=== PATIENT | male | born 1970 | race Two or more races ===

== ENCOUNTER 2019-09-04 05:06 | Observation (INO) | payer SELFPAY ==
[2019-09-04] MEDS ORDERED: Sodium Chloride 0.9% 2.5 ML Syringe FLUSH PRN (05:08)
[2019-09-04] MEDS ORDERED: Sodium Chloride 0.9% 10 ML Syringe FLUSH PRN (05:08)
--- NOTE | 2019-09-04 05:20 | EDM.PDOC ---
ED HPI GENERAL MEDICAL PROBLEM - General Stated Complaint: RIGHT SIDE IS TINGLING Time Seen by Provider: 09/04/19 05:14 - History of Present Illness INITIAL COMMENTS - FREE TEXT/NARRATIVE: HISTORY AND PHYSICAL: History of present illness: The patient is a 49-year-old male with no stated medical history who presents with complaints of tingling and numbness to his right upper and right lower extremity that started when he awoke to go to the bathroom at 3 AM. He went to bed at 9:45 PM and felt perfectly fine and had no systemic issues. He awoke to go to the bathroom and noticed the symptoms. He says it feels tingly like his arm and leg are asleep but he is able to walk and utilize them and there is no weakness. He denies any headache or neck pain and no head or neck trauma of recent note. He has no back pain no chest pain no palpitations no shortness of breath nausea vomiting abdominal pain or diarrhea. He says that his right arm and right leg are not painful and they're not burning. He does not have any numbness or tingling to his face or his trunk on the right side. He did not feel unsteady walking and he waited at home 2 hours prior to coming here and arrived through triage ambulatory. He denies any systemic issues other than the tingling and numbness to the entire right arm and right leg. Patient says that yesterday he ate and drank normally and had a completely normal day without any increased activity or anything of note. When he went to bed he also had no symptoms. The patient does admit that he does eat a lot of sodium rich foods but he has never been told that he has had hypertension. Review of systems: As per history of present illness and below otherwise all systems reviewed and negative. Past medical history: As per history of present illness and as reviewed below otherwise noncontributory. Surgical history: As per history of present illness and as reviewed below otherwise noncontributory. Social history: No reported history of drug or alcohol abuse. Family history: As per history of present illness and as reviewed below otherwise noncontributory. Physical exam: General: Well-developed well-nourished mildly overweight man who is nontoxic and speaking clearly and easily in the ED. Vital signs are noted by me HEENT: Atraumatic, normocephalic, pupils reactive, negative for conjunctival pallor or scleral icterus, mucous membranes moist, throat clear, neck supple, nontender, trachea midline. There is no evidence of any facial droop on my evaluation and there is no cervical adenopathy or nuchal rigidity Lungs: Clear to auscultation, breath sounds equal bilaterally, chest nontender. Heart: S1S2, regular, negative for clicks, rubs, or JVD. Abdomen: Soft, nondistended, nontender. Negative for masses or hepatosplenomegaly. Negative for costovertebral tenderness. Pelvis: Stable nontender. Genitourinary: Deferred. Rectal: Deferred. Extremities: Atraumatic, negative for cords or calf pain. Neurovascular unremarkable. Full range of motion without defects or deficits. There is no tenderness on palpation of the right upper and right lower extremities nor is there any swelling. Neuro: Awake, alert, oriented. Cranial nerves II through XII unremarkable. Cerebellum unremarkable. Motor is 5/5 throughout all extremities with strong grasps that are equal as well as dorsi and plantar flexion 5/5 inclusive of the great toe bilaterally, inversion and eversion of the feet is intact and sensory grossly unremarkable throughout. Exam nonfocal. The patient can feel simple touch and pressure as well as temperature Diagnostics: EKG CBC CMP INR troponin TSH UA with reflex chest x-ray CT scan of the head NIHSS Therapeutics: IV O2 monitor aspirin if CT head negative, labetalol potassium by mouth After our initial evaluation and conversation with the patient his symptoms are not severe enough to mandate TPA nor is he within the window. His last well time was 9:45 PM when he went to bed, which is 7-1/2 hours prior to presenting here, and he woke at 3 AM to go to the bathroom with these symptoms. NIHSS=0 The patient has had only mild improvement of his blood pressure with the labetalol so I will discuss this case with Dr. Alexander. He does state that the tingling is improving and he has no further symptoms of weakness headache chest pain or shortness of breath. He has a slight hypokalemia so I will give him an oral dose of potassium area he states understanding that we need to slowly lower his blood pressure as we are not sure what his normal is. He is agreeable to admission. 0614: Case was discussed with Dr. Alexander who agrees with observation admission and does not want to give anymore medications at this time. He is aware of the current blood pressure Impression: Paresthesias of right upper and right lower extremity, new hypertension/ hypertensive urgency Definitive disposition and diagnosis as appropriate pending reevaluation and review of above. - Related Data Allergies Allergy/AdvReac Type Severity Reaction Status Date / Time No Known Allergies Allergy Verified 09/04/19 05:22 Home Meds: Home Meds . [No Known Home Meds] 09/04/19 [History] ED ROS GENERAL - Review of Systems Review Of Systems: ROS reveals no pertinent complaints other than HPI. ED EXAM, GENERAL - Physical Exam Exam: See Below (see dictation) Course - Vital Signs Last Recorded V/S: Last Vital Signs Temp 36.2 C 09/04/19 05:22 Pulse 73 09/04/19 06:05 Resp 18 09/04/19 05:55 BP 180/108 H 09/04/19 06:05 Pulse Ox 94 L 09/04/19 05:55 - Orders/Labs/Meds Orders: Active Orders 24 hr Category Date Time Status Patient Status [ADT] Stat ADT 09/04/19 06:16 Active Blood Glucose Check, Bedside [RC] ONETIME Care 09/04/19 05:08 Active Cardiac Monitoring [RC] . DIRECTED Care 09/04/19 05:08 Active Communication Order [RC] STAT Care 09/04/19 05:08 Active EKG Documentation Completion [RC] STAT Care 09/04/19 05:08 Active Oxygen Therapy, ED [RC] ASDIRECTED Care 09/04/19 05:08 Active Pulse Oximetry [RC] ASDIRECTED Care 09/04/19 05:08 Active Sodium Chloride 0.9% [Saline Flush] Med 09/04/19 05:08 Active 10 ml FLUSH ASDIRECTED PRN Sodium Chloride 0.9% [Saline Flush] Med 09/04/19 05:08 Active 2.5 ml FLUSH ASDIRECTED PRN Saline Lock Insert [OM.PC] Stat Oth 09/04/19 05:08 Ordered Medication Orders Sodium Chloride (Saline Flush) 10 ml FLUSH ASDIRECTED PRN PRN Reason: Keep Vein Open Sodium Chloride (Saline Flush) 2.5 ml FLUSH ASDIRECTED PRN PRN Reason: Keep Vein Open Labs: Laboratory Tests 09/04/19 09/04/19 09/04/19 Range/Units 05:16 05:16 05:16 WBC 9.42 (4.0-11.0) K/uL RBC 5.08 (4.50-5.90) M/uL Hgb 16.1 (13.0-17.0) g/dL Hct 44.7 (38.0-50.0) % MCV 88.0 (80.0-98.0) fL MCH 31.7 (27.0-32.0) pg MCHC 36.0 (31.0-37.0) g/dL RDW Std Deviation 39.3 (28.0-62.0) fl RDW Coeff of Lala 12 (11.0-15.0) % Plt Count 226 (150-400) K/uL MPV 12.10 H (7.40-12.00) fL Neut % (Auto) 55.1 (48.0-80.0) % Lymph % (Auto) 32.9 (16.0-40.0) % Martin % (Auto) 8.5 (0.0-15.0) % Eos % (Auto) 2.9 (0.0-7.0) % Baso % (Auto) 0.6 (0.0-1.5) % Neut # (Auto) 5.2 (1.4-5.7) K/uL Lymph # (Auto) 3.1 H (0.6-2.4) K/uL Martin # (Auto) 0.8 (0.0-0.8) K/uL Eos # (Auto) 0.3 (0.0-0.7) K/uL Baso # (Auto) 0.1 (0.0-0.1) K/uL Nucleated RBC % 0.0 /100WBC Nucleated RBCs # 0 K/uL INR 1.04 Sodium 137 (136-148) mmol/L Potassium 3.1 L (3.5-5.1) mmol/L Chloride 100 (98-107) mmol/L Carbon Dioxide 26.8 (21.0-32.0) mmol/L BUN 8 (7.0-18.0) mg/dL Creatinine 0.9 (0.8-1.3) mg/dL Est Cr Clr Drug Dosing 94.87 mL/min Estimated GFR (MDRD) > 60.0 ml/min Glucose 260 H (74-106) mg/dL Calcium 8.4 L (8.5-10.1) mg/dL Total Bilirubin 1.0 (0.2-1.0) mg/dL AST 91 H (15-37) IU/L ALT 161 H (14-63) IU/L Alkaline Phosphatase 118 H (46-116) U/L Troponin I < 0.050 (0.000-0.056) ng/mL Total Protein 8.3 H (6.4-8.2) g/dL Albumin 3.9 (3.4-5.0) g/dL Globulin 4.4 H (2.6-4.0) g/dL Albumin/Globulin Ratio 0.9 (0.9-1.6) TSH 3rd Generation 2.33 (0.36-3.74) uIU/mL Urine Color Urine Appearance Urine pH (5.0-8.0) Ur Specific [place] (1.001-1.035) Urine Protein (NEGATIVE) mg/dL Urine Glucose (UA) (NEGATIVE) mg/dL Urine Ketones (NEGATIVE) mg/dL Urine Occult Blood (NEGATIVE) Urine Nitrite (NEGATIVE) Urine Bilirubin (NEGATIVE) Urine Urobilinogen (<2.0) EU/dL Ur Leukocyte Esterase (NEGATIVE) 09/04/19 Range/Units 06:00 WBC (4.0-11.0) K/uL RBC (4.50-5.90) M/uL Hgb (13.0-17.0) g/dL Hct (38.0-50.0) % MCV (80.0-98.0) fL MCH (27.0-32.0) pg MCHC (31.0-37.0) g/dL RDW Std Deviation (28.0-62.0) fl RDW Coeff of Lala (11.0-15.0) % Plt Count (150-400) K/uL MPV (7.40-12.00) fL Neut % (Auto) (48.0-80.0) % Lymph % (Auto) (16.0-40.0) % Martin % (Auto) (0.0-15.0) % Eos % (Auto) (0.0-7.0) % Baso % (Auto) (0.0-1.5) % Neut # (Auto) (1.4-5.7) K/uL Lymph # (Auto) (0.6-2.4) K/uL Martin # (Auto) (0.0-0.8) K/uL Eos # (Auto) (0.0-0.7) K/uL Baso # (Auto) (0.0-0.1) K/uL Nucleated RBC % /100WBC Nucleated RBCs # K/uL INR Sodium (136-148) mmol/L Potassium (3.5-5.1) mmol/L Chloride (98-107) mmol/L Carbon Dioxide (21.0-32.0) mmol/L BUN (7.0-18.0) mg/dL Creatinine (0.8-1.3) mg/dL Est Cr Clr Drug Dosing mL/min Estimated GFR (MDRD) ml/min Glucose (74-106) mg/dL Calcium (8.5-10.1) mg/dL Total Bilirubin (0.2-1.0) mg/dL AST (15-37) IU/L ALT (14-63) IU/L Alkaline Phosphatase (46-116) U/L Troponin I (0.000-0.056) ng/mL Total Protein (6.4-8.2) g/dL Albumin (3.4-5.0) g/dL Globulin (2.6-4.0) g/dL Albumin/Globulin Ratio (0.9-1.6) TSH 3rd Generation (0.36-3.74) uIU/mL Urine Color YELLOW Urine Appearance CLEAR Urine pH 6.5 (5.0-8.0) Ur Specific [place] <= 1.005 (1.001-1.035) Urine Protein NEGATIVE (NEGATIVE) mg/dL Urine Glucose (UA) 250 H (NEGATIVE) mg/dL Urine Ketones NEGATIVE (NEGATIVE) mg/dL Urine Occult Blood NEGATIVE (NEGATIVE) Urine Nitrite NEGATIVE (NEGATIVE) Urine Bilirubin NEGATIVE (NEGATIVE) Urine Urobilinogen 0.2 (<2.0) EU/dL Ur Leukocyte Esterase NEGATIVE (NEGATIVE) Meds: Medications Generic Name Dose Route Start Last Admin Trade Name Freq PRN Reason Stop Dose Admin Sodium Chloride 10 ml 09/04/19 05:08 Saline Flush FLUSH ASDIRECTED PRN Keep Vein Open Sodium Chloride 2.5 ml 09/04/19 05:08 Saline Flush FLUSH ASDIRECTED PRN Keep Vein Open Discontinued Medications Generic Name Dose Route Start Last Admin Trade Name Juliet PRN Reason Stop Dose Admin Aspirin 325 mg 09/04/19 06:06 09/04/19 06:15 Aspirin PO 09/04/19 06:07 325 mg ONETIME ONE Administration Labetalol HCl 10 mg 09/04/19 05:23 09/04/19 05:35 Normodyne IVPUSH 09/04/19 05:24 10 mg ONETIME ONE Administration Protocol Labetalol HCl 10 mg 09/04/19 05:46 09/04/19 05:49 Normodyne IVPUSH 09/04/19 05:47 10 mg ONETIME ONE Administration Protocol Potassium Chloride 40 meq 09/04/19 06:08 09/04/19 06:15 Klor-Con M20 PO 09/04/19 06:09 40 meq ONETIME ONE Administration Departure - Departure Time of Disposition: 06:19 Disposition: Refer to Observation Condition: Good Clinical Impression: Hypertensive urgency, Paresthesia - Discharge Information - My Orders Last 24 Hours: My Active Orders 09/04/19 05:08 Blood Glucose Check, Bedside [RC] ONETIME Cardiac Monitoring [RC] . DIRECTED Communication Order [RC] STAT EKG Documentation Completion [RC] STAT Oxygen Therapy, ED [RC] ASDIRECTED Pulse Oximetry [RC] ASDIRECTED Sodium Chloride 0.9% [Saline Flush] 10 ml FLUSH ASDIRECTED PRN Sodium Chloride 0.9% [Saline Flush] 2.5 ml FLUSH ASDIRECTED PRN Saline Lock Insert [OM.PC] Stat 09/04/19 06:16 Patient Status [ADT] Stat - Assessment/Plan Last 24 Hours: My Active Orders 09/04/19 05:08 Blood Glucose Check, Bedside [RC] ONETIME Cardiac Monitoring [RC] . DIRECTED Communication Order [RC] STAT EKG Documentation Completion [RC] STAT Oxygen Therapy, ED [RC] ASDIRECTED Pulse Oximetry [RC] ASDIRECTED Sodium Chloride 0.9% [Saline Flush] 10 ml FLUSH ASDIRECTED PRN Sodium Chloride 0.9% [Saline Flush] 2.5 ml FLUSH ASDIRECTED PRN Saline Lock Insert [OM.PC] Stat 09/04/19 06:16 Patient Status [ADT] Stat
[2019-09-04] MEDS ORDERED: Labetalol 100 MG/20 ML MDV IVPUSH ONE ×2 (05:23→05:46)
[2019-09-04 05:51] LABS: BLOOD UREA NITROGEN,BUN 8 mg/dL (7.0-18.0); CARBON DIOXIDE,CO2 26.8 mmol/L (21.0-32.0); CHLORIDE,CL 100 mmol/L (98-107); GLUCOSE RANDOM 260 mg/dL (74-106); POTASSIUM,K 3.1 mmol/L (3.5-5.1); SODIUM,NA 137 mmol/L (136-148)
--- NOTE | 2019-09-04 05:57 | CR ---
Indication: Acute onset right-sided numbness Technique: Chest 1 view Comparison: None Findings/Impression: Cardiovascular and mediastinum: Heart size and vasculature are normal in caliber and appearance. Mediastinum is within normal limits. Lungs and pleural space: Lungs are clear. No sign of infiltrate or mass. No sign of pleural effusion. No pneumothorax. Bones and soft tissues: No significant findings. Dictated by Maite Crowley MD @ Sep 04 2019 5:54AM Signed by Dr. Maite Crowley @ Sep 04 2019 5:54AM
--- NOTE | 2019-09-04 05:57 | CT ---
INDICATION: Right-sided numbness TECHNIQUE: CT head without contrast. COMPARISON: None FINDINGS: CSF spaces: Within normal limits for age. Brain parenchyma: The zamora-white differentiation is normal. No sign of mass, hemorrhage, or midline shift. Skull base and calvarium: The visualized paranasal sinuses and mastoid air cells demonstrate no acute or significant findings. The visualized orbits are grossly unremarkable. No skull fractures. IMPRESSION: Unremarkable noncontrast head CT. Please note that all CT scans at this facility use dose modulation, iterative reconstruction, and/or weight-based dosing when appropriate to reduce radiation dose to as low as reasonably achievable. Dictated by Maite Crowley MD @ Sep 04 2019 5:54AM Signed by Dr. Maiet Crowley @ Sep 04 2019 5:56AM
[2019-09-04] MEDS ORDERED: Aspirin 325 MG Tab PO ONE (06:06)
[2019-09-04] MEDS ORDERED: Potassium Chloride 20 MEQ Tab.ER PO ONE (06:08)
[2019-09-04] MEDS: cloNIDine 0.1 MG Tab PO ONE ×2 (06:55→06:59)
[2019-09-04] MEDS ORDERED: FLU Vacc QS2019-20(6MOS+)/PF 60 MCG/0.5 ML SYRINGE IM ONE (07:15)
--- NOTE | 2019-09-04 08:34 | PCM.HP.2 ---
H&P History of Present Illness - General Date of Service: 09/04/19 Admit Problem/Dx: Admission Diagnosis/Problem Admission Diagnosis/Problem Hypertensive urgency Source of Information: Patient History Limitations: Reports: No Limitations - History of Present Illness Initial Comments - Free Text/Narative: Patient is a 49 y/o male with no reported PMH who came to the ER with c/o right UE and LE tingling and numbness. Patient states that he got up to use bathroom at 3am this morning and "felt off", states he felt numbness and tingling in right arm and right leg. He went to bed around 10 pm last night and was in his usual state of health at that time. Patient waited almost 2 hours prior to coming to ER. Patient denied any weakness, nausea, vomiting, fever, chills, chest pain, SOB, palpitations, abdominal pain, cough, sore throat, focal neurological deficits, h/o trauma. Patient was found to be in hypertensive in ER with SBP >200. CT scan head was negative. Patient received labetalol*2 in the ED with minimal improvement in BP. Patient was admitted to hospital for further management. Patient has no PCP and has no insurance. Meds in ER: Generic Name Dose Route Start Last Admin Trade Name Freq PRN Reason Stop Dose Admin Sodium Chloride 10 ml 09/04/19 05:08 Saline Flush FLUSH ASDIRECTED PRN Keep Vein Open Sodium Chloride 2.5 ml 09/04/19 05:08 Saline Flush FLUSH ASDIRECTED PRN Keep Vein Open Discontinued Medications Generic Name Dose Route Start Last Admin Trade Name Freq PRN Reason Stop Dose Admin Aspirin 325 mg 09/04/19 06:06 09/04/19 06:15 Aspirin PO 09/04/19 06:07 325 mg ONETIME ONE Administration Labetalol HCl 10 mg 09/04/19 05:23 09/04/19 05:35 Normodyne IVPUSH 09/04/19 05:24 10 mg ONETIME ONE Administration Protocol Labetalol HCl 10 mg 09/04/19 05:46 09/04/19 05:49 Normodyne IVPUSH 09/04/19 05:47 10 mg ONETIME ONE Administration Protocol Potassium Chloride 40 meq 09/04/19 06:08 09/04/19 06:15 Klor-Con M20 PO 09/04/19 06:09 40 meq ONETIME ONE Administration Onset of Symptoms: Reports: Today Symptom Onset Date: 09/04/19 Symptom Onset Time: 03:00 Duration of Symptoms: Reports: Hour(s): Location: Reports: Upper Extremity, Right, Lower Extremity, Right Quality: Reports: Burning Severity: Moderate Improves with: Reports: None Worsens with: Reports: None Associated Symptoms: Reports: No Other Symptoms - Related Data Allergies/Adverse Reactions: Allergies Allergy/AdvReac Type Severity Reaction Status Date / Time No Known Allergies Allergy Verified 09/04/19 05:22 Home Medications: Home Meds . [No Known Home Meds] 09/04/19 [History] Past Medical History Endocrine/Metabolic History: Reports: Obesity/BMI 30+ - Past Surgical History Musculoskeletal Surgical History: Reports: Other (See Below) Other Musculoskeletal Surgeries/Procedures:: knee and finger surgery Social & Family History - Family History Cardiac: Reports: Hypertension - Tobacco Use Smoking Status *Q: Former Smoker Used Tobacco, but Quit: Yes Month/Year Tobacco Last Used: 2003 Second Hand Smoke Exposure: No - Caffeine Use Caffeine Use: Reports: Coffee, Soda, Tea - Recreational Drug Use Recreational Drug Use: No H&P Review of Systems - Review of Systems: Review Of Systems: See Below General: Reports: No Symptoms HEENT: Reports: No Symptoms Pulmonary: Reports: No Symptoms Cardiovascular: Reports: No Symptoms Gastrointestinal: Reports: No Symptoms Genitourinary: Reports: No Symptoms Musculoskeletal: Reports: No Symptoms Skin: Reports: No Symptoms Psychiatric: Reports: No Symptoms Neurological: Reports: Tingling (in right UE, resolved in right LE) Hematologic/Lymphatic: Reports: No Symptoms Exam - Exam Exam: See Below - Vital Signs Vital Signs: Last Vital Signs Temp 36.9 C 09/04/19 08:00 Pulse 67 09/04/19 08:00 Resp 17 09/04/19 08:00 BP 159/90 H 09/04/19 08:00 Pulse Ox 95 09/04/19 08:00 Weight: 239 lb 4.8 oz - Exam General: Alert, Oriented HEENT: Conjunctiva Clear Neck: Supple, Trachea Midline Lungs: Clear to Auscultation, Normal Respiratory Effort Cardiovascular: Regular Rate, Regular Rhythm GI/Abdominal Exam: Normal Bowel Sounds, Soft, Non-Tender Rectal (Males) Exam: Normal Exam, Normal Rectal Tone - Patient Data Lab Results Last 24 hrs: Laboratory Results - last 24 hr 09/04/19 09/04/19 09/04/19 Range/Units 05:16 05:16 05:16 WBC 9.42 (4.0-11.0) K/uL RBC 5.08 (4.50-5.90) M/uL Hgb 16.1 (13.0-17.0) g/dL Hct 44.7 (38.0-50.0) % MCV 88.0 (80.0-98.0) fL MCH 31.7 (27.0-32.0) pg MCHC 36.0 (31.0-37.0) g/dL RDW Std Deviation 39.3 (28.0-62.0) fl RDW Coeff of Lala 12 (11.0-15.0) % Plt Count 226 (150-400) K/uL MPV 12.10 H (7.40-12.00) fL Neut % (Auto) 55.1 (48.0-80.0) % Lymph % (Auto) 32.9 (16.0-40.0) % [place] % (Auto) 8.5 (0.0-15.0) % Eos % (Auto) 2.9 (0.0-7.0) % Baso % (Auto) 0.6 (0.0-1.5) % Neut # (Auto) 5.2 (1.4-5.7) K/uL Lymph # (Auto) 3.1 H (0.6-2.4) K/uL [place] # (Auto) 0.8 (0.0-0.8) K/uL Eos # (Auto) 0.3 (0.0-0.7) K/uL Baso # (Auto) 0.1 (0.0-0.1) K/uL Nucleated RBC % 0.0 /100WBC Nucleated RBCs # 0 K/uL INR 1.04 Sodium 137 (136-148) mmol/L Potassium 3.1 L (3.5-5.1) mmol/L Chloride 100 (98-107) mmol/L Carbon Dioxide 26.8 (21.0-32.0) mmol/L BUN 8 (7.0-18.0) mg/dL Creatinine 0.9 (0.8-1.3) mg/dL Est Cr Clr Drug Dosing 94.87 mL/min Estimated GFR (MDRD) > 60.0 ml/min Glucose 260 H (74-106) mg/dL Calcium 8.4 L (8.5-10.1) mg/dL Total Bilirubin 1.0 (0.2-1.0) mg/dL AST 91 H (15-37) IU/L ALT 161 H (14-63) IU/L Alkaline Phosphatase 118 H (46-116) U/L Troponin I < 0.050 (0.000-0.056) ng/mL Total Protein 8.3 H (6.4-8.2) g/dL Albumin 3.9 (3.4-5.0) g/dL Globulin 4.4 H (2.6-4.0) g/dL Albumin/Globulin Ratio 0.9 (0.9-1.6) TSH 3rd Generation 2.33 (0.36-3.74) uIU/mL Urine Color Urine Appearance Urine pH (5.0-8.0) Ur Specific Angie (1.001-1.035) Urine Protein (NEGATIVE) mg/dL Urine Glucose (UA) (NEGATIVE) mg/dL Urine Ketones (NEGATIVE) mg/dL Urine Occult Blood (NEGATIVE) Urine Nitrite (NEGATIVE) Urine Bilirubin (NEGATIVE) Urine Urobilinogen (<2.0) EU/dL Ur Leukocyte Esterase (NEGATIVE) 09/04/19 Range/Units 06:00 WBC (4.0-11.0) K/uL RBC (4.50-5.90) M/uL Hgb (13.0-17.0) g/dL Hct (38.0-50.0) % MCV (80.0-98.0) fL MCH (27.0-32.0) pg MCHC (31.0-37.0) g/dL RDW Std Deviation (28.0-62.0) fl RDW Coeff of Lala (11.0-15.0) % Plt Count (150-400) K/uL MPV (7.40-12.00) fL Neut % (Auto) (48.0-80.0) % Lymph % (Auto) (16.0-40.0) % [place] % (Auto) (0.0-15.0) % Eos % (Auto) (0.0-7.0) % Baso % (Auto) (0.0-1.5) % Neut # (Auto) (1.4-5.7) K/uL Lymph # (Auto) (0.6-2.4) K/uL [place] # (Auto) (0.0-0.8) K/uL Eos # (Auto) (0.0-0.7) K/uL Baso # (Auto) (0.0-0.1) K/uL Nucleated RBC % /100WBC Nucleated RBCs # K/uL INR Sodium (136-148) mmol/L Potassium (3.5-5.1) mmol/L Chloride (98-107) mmol/L Carbon Dioxide (21.0-32.0) mmol/L BUN (7.0-18.0) mg/dL Creatinine (0.8-1.3) mg/dL Est Cr Clr Drug Dosing mL/min Estimated GFR (MDRD) ml/min Glucose (74-106) mg/dL Calcium (8.5-10.1) mg/dL Total Bilirubin (0.2-1.0) mg/dL AST (15-37) IU/L ALT (14-63) IU/L Alkaline Phosphatase (46-116) U/L Troponin I (0.000-0.056) ng/mL Total Protein (6.4-8.2) g/dL Albumin (3.4-5.0) g/dL Globulin (2.6-4.0) g/dL Albumin/Globulin Ratio (0.9-1.6) TSH 3rd Generation (0.36-3.74) uIU/mL Urine Color YELLOW Urine Appearance CLEAR Urine pH 6.5 (5.0-8.0) Ur Specific Angie <= 1.005 (1.001-1.035) Urine Protein NEGATIVE (NEGATIVE) mg/dL Urine Glucose (UA) 250 H (NEGATIVE) mg/dL Urine Ketones NEGATIVE (NEGATIVE) mg/dL Urine Occult Blood NEGATIVE (NEGATIVE) Urine Nitrite NEGATIVE (NEGATIVE) Urine Bilirubin NEGATIVE (NEGATIVE) Urine Urobilinogen 0.2 (<2.0) EU/dL Ur Leukocyte Esterase NEGATIVE (NEGATIVE) Result Diagrams: 09/04/19 05:16 09/04/19 05:16 *Q Meaningful Use (ADM) - VTE Risk Assess *Q Each Risk Factor Represents 1 Point: Age 41 - 59 years, Obesity ( BMI > 25 kg/m2 ) Total Score 1 Point Risk Factors: 2 - Problem List (1) Hypertensive urgency SNOMED Code(s): 544427623 ICD Code: I16.0 - HYPERTENSIVE URGENCY Status: Acute Current Visit: No (2) Paresthesia SNOMED Code(s): 95084847 ICD Code: R20.2 - PARESTHESIA OF SKIN Status: Acute Current Visit: No (3) Hyperglycemia, unspecified SNOMED Code(s): 24537457 ICD Code: R73.9 - HYPERGLYCEMIA, UNSPECIFIED Status: Acute Current Visit : Yes (4) LFTs abnormal SNOMED Code(s): 681780382 ICD Code: R94.5 - ABNORMAL RESULTS OF LIVER FUNCTION STUDIES Status: Acute Current Visit: Yes (5) Hypokalemia SNOMED Code(s): 05002859 ICD Code: E87.6 - HYPOKALEMIA Status: Acute Current Visit: Yes Problem List Initiated/Reviewed/Updated: Yes Orders Last 24hrs: Active Orders 24 hr Category Date Time Status Patient Status [ADT] Stat ADT 09/04/19 06:16 Active Cardiac Monitoring [RC] . DIRECTED Care 09/04/19 05:08 Active Influenza Vaccine Charge [RC] .DISCHARGE Care 09/04/19 06:51 Active Telemetry Monitoring [Cardiac Monitoring] [RC] . Care 09/04/19 06:43 Active DIRECTED Regular Diet [DIET] Diet 09/04/19 Breakfast Active Sodium Chloride 0.9% [Saline Flush] Med 09/04/19 05:08 Active 10 ml FLUSH ASDIRECTED PRN Sodium Chloride 0.9% [Saline Flush] Med 09/04/19 05:08 Active 2.5 ml FLUSH ASDIRECTED PRN Saline Lock Insert [OM.PC] Stat Oth 09/04/19 05:08 Ordered Medication Orders Sodium Chloride (Saline Flush) 10 ml FLUSH ASDIRECTED PRN PRN Reason: Keep Vein Open Sodium Chloride (Saline Flush) 2.5 ml FLUSH ASDIRECTED PRN PRN Reason: Keep Vein Open Assessment/Plan Comment:: 1) Hypertensive urgency: Patient was found to have SBP>200, required multiple IV labetalol CT scan of the head was negative for acute stroke Numbness and tinging improved likely due to uncontrolled HTN. no focal deficits cont current antihypertensive regimen New dx of HTN so patient was counselled about HTN and what it entails in detail for approx 10 min Will check TSH, lipid profile, HbA1c Creatinine is normal Likely undiagnosed essential HTN cont to monitor vitals closely 2) Hyperglycemia: BS elevated, likely Type 2 DM Will check HbA1c SSI 3) Hypokalemia: repleted in ER, f/u on AM labs 4) Abnormal LFTs: could be sec to uncontrolled HTN vs Viral hepatitis vs ALVAREZ Will check Hepatitis panel US liver No GI symptoms cont to trend Avoid Hepatotoxic meds
[2019-09-04] MEDS ORDERED: Albuterol/Ipratropium 3.0-0.5 MG/3 ML Neb Soln NEB PRN (10:20)
[2019-09-04 10:54] LABS: HEMOGLOBIN A1C 8.9 % (4.5-6.2)
[2019-09-04] MEDS: Insulin Aspart 100 Units/ML 3 ML Pen SUBCUT SCH ×2 (11:54→18:28)
[2019-09-04] MEDS: Labetalol 100 MG/20 ML MDV IVPUSH PRN ×2 (11:58→18:23)
[2019-09-04] MEDS: Lisinopril 10 MG Tab PO SCH (13:45)
--- NOTE | 2019-09-04 13:48 | US ---
Limited abdominal ultrasound: Multiple real-time images of the upper right abdomen were obtained. Comparison: No previous abdominal imaging. Findings: Liver shows no focal abnormality. Right kidney shows no hydronephrosis or mass and has a length of 11.2 cm. Gallbladder contains no shadowing gallstones. No gallbladder wall thickening or biliary duct dilatation is seen. Visualized pancreas appears within normal limits. Impression: No abnormality is appreciated on right upper quadrant abdominal ultrasound. Diagnostic code #1 MTDD
[2019-09-04] MEDS ORDERED: amLODIPine 5 MG Tab PO ONE (18:04)
[2019-09-04] MEDS: Chlorthalidone 25 MG Tab PO SCH (19:38)
[2019-09-04] MEDS ORDERED: atorvaSTATin 20 MG Tab PO SCH (21:00)
[2019-09-04] MEDS ORDERED: Aspirin 81 MG Tab.Chew PO SCH (21:00)
[2019-09-04] MEDS ORDERED: Labetalol 100 MG/20 ML MDV IVPUSH SCH (22:00)
[2019-09-04] MEDS ORDERED: hydrALAZINE 20 MG/ML SDV IVPUSH PRN (22:31)
[2019-09-05] MEDS ORDERED: Labetalol 100 MG/20 ML MDV IVPUSH SCH
[2019-09-05 05:55] LABS: BLOOD UREA NITROGEN,BUN 8 mg/dL (7.0-18.0); CARBON DIOXIDE,CO2 29.4 mmol/L (21.0-32.0); CHLORIDE,CL 100 mmol/L (98-107); GLUCOSE RANDOM 243 mg/dL (74-106); POTASSIUM,K 3.6 mmol/L (3.5-5.1); SODIUM,NA 137 mmol/L (136-148)
[2019-09-05] MEDS: Insulin Aspart 100 Units/ML 3 ML Pen SUBCUT SCH ×2 (06:36→14:39)
[2019-09-05] MEDS: Lisinopril 10 MG Tab PO SCH (08:45)
[2019-09-05] MEDS: Chlorthalidone 25 MG Tab PO SCH (08:47)
[2019-09-05] MEDS ORDERED: amLODIPine 5 MG Tab PO SCH (09:00)
[2019-09-05] MEDS ORDERED: Metoprolol Succinate 25 MG Tab.ER PO SCH (09:00)
--- NOTE | 2019-09-05 09:45 | PCM.PN ---
- General Info Date of Service: 09/05/19 Admission Dx/Problem (Free Text): Admission Diagnosis/Problem Admission Diagnosis/Problem Hypertensive urgency Subjective Update: Patient seen and examined at bedside. No acute complaints. BP was high again last evening, so changes in the antihypertensive meds were made. BP acceptable rest of the night. Functional Status: Reports: Tolerating Diet, Ambulating, Urinating Pain Score: 0 - Review of Systems General: Reports: No Symptoms HEENT: Reports: No Symptoms Pulmonary: Reports: No Symptoms Cardiovascular: Reports: No Symptoms Gastrointestinal: Reports: No Symptoms Genitourinary: Reports: No Symptoms Musculoskeletal: Reports: No Symptoms Neurological: Reports: No Symptoms Psychiatric: Reports: No Symptoms - Patient Data Vitals - Most Recent: Last Vital Signs Temp 36.7 C 09/05/19 08:00 Pulse 72 09/05/19 08:46 Resp 18 09/05/19 08:00 BP 145/94 H 09/05/19 08:47 Pulse Ox 95 09/05/19 08:00 Weight - Most Recent: 239 lb 4.8 oz I&O - Last 24 Hours: Intake & Output 09/04/19 09/05/19 09/05/19 22:59 06:59 14:59 Intake Total 1380 600 Output Total 1650 1300 Balance -270 -700 Lab Results Last 24 Hours: Laboratory Results - last 24 hr 09/04/19 09/04/19 09/04/19 Range/Units 05:16 05:16 11:36 WBC (4.0-11.0) K/uL RBC (4.50-5.90) M/uL Hgb (13.0-17.0) g/dL Hct (38.0-50.0) % MCV (80.0-98.0) fL MCH (27.0-32.0) pg MCHC (31.0-37.0) g/dL RDW Std Deviation (28.0-62.0) fl RDW Coeff of Lala (11.0-15.0) % Plt Count (150-400) K/uL MPV (7.40-12.00) fL Neut % (Auto) (48.0-80.0) % Lymph % (Auto) (16.0-40.0) % [place] % (Auto) (0.0-15.0) % Eos % (Auto) (0.0-7.0) % Baso % (Auto) (0.0-1.5) % Neut # (Auto) (1.4-5.7) K/uL Lymph # (Auto) (0.6-2.4) K/uL [place] # (Auto) (0.0-0.8) K/uL Eos # (Auto) (0.0-0.7) K/uL Baso # (Auto) (0.0-0.1) K/uL Nucleated RBC % /100WBC Nucleated RBCs # K/uL Sodium (136-148) mmol/L Potassium (3.5-5.1) mmol/L Chloride (98-107) mmol/L Carbon Dioxide (21.0-32.0) mmol/L BUN (7.0-18.0) mg/dL Creatinine (0.8-1.3) mg/dL Est Cr Clr Drug Dosing mL/min Estimated GFR (MDRD) ml/min Glucose (74-106) mg/dL POC Glucose 179 H (60-110) mg/dL Hemoglobin A1c 8.9 H (4.5-6.2) % Calcium (8.5-10.1) mg/dL Phosphorus (2.6-4.7) mg/dL Magnesium (1.8-2.4) mg/dL Total Bilirubin (0.2-1.0) mg/dL AST (15-37) IU/L ALT (14-63) IU/L Alkaline Phosphatase (46-116) U/L Total Protein (6.4-8.2) g/dL Albumin (3.4-5.0) g/dL Globulin (2.6-4.0) g/dL Albumin/Globulin Ratio (0.9-1.6) Triglycerides 103 (0-200) mg/dL Cholesterol 195 (50-200) mg/dL LDL Cholesterol, Calc 134 (60-180) mg/dL VLDL Cholesterol 20 (5-55) mg/dL HDL Cholesterol 40 (40-60) mg/dL Cholesterol/HDL Ratio 4.9 (3.3-6.0) 09/04/19 09/05/19 09/05/19 Range/Units 17:11 05:23 05:23 WBC 8.21 (4.0-11.0) K/uL RBC 5.17 (4.50-5.90) M/uL Hgb 16.3 (13.0-17.0) g/dL Hct 46.5 (38.0-50.0) % MCV 89.9 (80.0-98.0) fL MCH 31.5 (27.0-32.0) pg MCHC 35.1 (31.0-37.0) g/dL RDW Std Deviation 41.0 (28.0-62.0) fl RDW Coeff of Lala 13 (11.0-15.0) % Plt Count 234 (150-400) K/uL MPV 12.20 H (7.40-12.00) fL Neut % (Auto) 55.6 (48.0-80.0) % Lymph % (Auto) 34.8 (16.0-40.0) % [place] % (Auto) 6.1 (0.0-15.0) % Eos % (Auto) 3.0 (0.0-7.0) % Baso % (Auto) 0.5 (0.0-1.5) % Neut # (Auto) 4.6 (1.4-5.7) K/uL Lymph # (Auto) 2.9 H (0.6-2.4) K/uL [place] # (Auto) 0.5 (0.0-0.8) K/uL Eos # (Auto) 0.3 (0.0-0.7) K/uL Baso # (Auto) 0.0 (0.0-0.1) K/uL Nucleated RBC % 0.0 /100WBC Nucleated RBCs # 0 K/uL Sodium 137 (136-148) mmol/L Potassium 3.6 (3.5-5.1) mmol/L Chloride 100 (98-107) mmol/L Carbon Dioxide 29.4 (21.0-32.0) mmol/L BUN 8 (7.0-18.0) mg/dL Creatinine 1.0 (0.8-1.3) mg/dL Est Cr Clr Drug Dosing 85.38 mL/min Estimated GFR (MDRD) > 60.0 ml/min Glucose 243 H (74-106) mg/dL POC Glucose 188 H (60-110) mg/dL Hemoglobin A1c (4.5-6.2) % Calcium 8.9 (8.5-10.1) mg/dL Phosphorus 3.5 (2.6-4.7) mg/dL Magnesium 2.0 (1.8-2.4) mg/dL Total Bilirubin 1.1 H (0.2-1.0) mg/dL AST 127 H (15-37) IU/L ALT 171 H (14-63) IU/L Alkaline Phosphatase 111 (46-116) U/L Total Protein 7.9 (6.4-8.2) g/dL Albumin 3.5 (3.4-5.0) g/dL Globulin 4.4 H (2.6-4.0) g/dL Albumin/Globulin Ratio 0.8 L (0.9-1.6) Triglycerides (0-200) mg/dL Cholesterol (50-200) mg/dL LDL Cholesterol, Calc (60-180) mg/dL VLDL Cholesterol (5-55) mg/dL HDL Cholesterol (40-60) mg/dL Cholesterol/HDL Ratio (3.3-6.0) 09/05/19 Range/Units 06:32 WBC (4.0-11.0) K/uL RBC (4.50-5.90) M/uL Hgb (13.0-17.0) g/dL Hct (38.0-50.0) % MCV (80.0-98.0) fL MCH (27.0-32.0) pg MCHC (31.0-37.0) g/dL RDW Std Deviation (28.0-62.0) fl RDW Coeff of Lala (11.0-15.0) % Plt Count (150-400) K/uL MPV (7.40-12.00) fL Neut % (Auto) (48.0-80.0) % Lymph % (Auto) (16.0-40.0) % [place] % (Auto) (0.0-15.0) % Eos % (Auto) (0.0-7.0) % Baso % (Auto) (0.0-1.5) % Neut # (Auto) (1.4-5.7) K/uL Lymph # (Auto) (0.6-2.4) K/uL [place] # (Auto) (0.0-0.8) K/uL Eos # (Auto) (0.0-0.7) K/uL Baso # (Auto) (0.0-0.1) K/uL Nucleated RBC % /100WBC Nucleated RBCs # K/uL Sodium (136-148) mmol/L Potassium (3.5-5.1) mmol/L Chloride (98-107) mmol/L Carbon Dioxide (21.0-32.0) mmol/L BUN (7.0-18.0) mg/dL Creatinine (0.8-1.3) mg/dL Est Cr Clr Drug Dosing mL/min Estimated GFR (MDRD) ml/min Glucose (74-106) mg/dL POC Glucose 240 H (60-110) mg/dL Hemoglobin A1c (4.5-6.2) % Calcium (8.5-10.1) mg/dL Phosphorus (2.6-4.7) mg/dL Magnesium (1.8-2.4) mg/dL Total Bilirubin (0.2-1.0) mg/dL AST (15-37) IU/L ALT (14-63) IU/L Alkaline Phosphatase (46-116) U/L Total Protein (6.4-8.2) g/dL Albumin (3.4-5.0) g/dL Globulin (2.6-4.0) g/dL Albumin/Globulin Ratio (0.9-1.6) Triglycerides (0-200) mg/dL Cholesterol (50-200) mg/dL LDL Cholesterol, Calc (60-180) mg/dL VLDL Cholesterol (5-55) mg/dL HDL Cholesterol (40-60) mg/dL Cholesterol/HDL Ratio (3.3-6.0) Med Orders - Current: Current Medications Albuterol/Ipratropium (Duoneb 3.0-0.5 Mg/3 Ml) 3 ml NEB Q4HRRT PRN PRN Reason: Shortness Of Breath/wheezing Amlodipine Besylate (Norvasc) 10 mg PO DAILY [facility] Last Admin: 09/05/19 08:47 Dose: 10 mg Aspirin (Aspirin) 81 mg PO BEDTIME [facility] Atorvastatin Calcium (Lipitor) 20 mg PO BEDTIME [facility] Last Admin: 09/04/19 20:36 Dose: 20 mg Insulin Aspart (Novolog) 0 unit SUBCUT TIDAC [facility]; Protocol Last Admin: 09/05/19 06:36 Dose: 2 unit Lisinopril (Prinivil) 10 mg PO DAILY [facility] Last Admin: 09/05/19 08:45 Dose: 10 mg Metoprolol Succinate (Toprol Xl) 25 mg PO DAILY [facility] Last Admin: 09/05/19 08:46 Dose: 25 mg Sodium Chloride (Saline Flush) 10 ml FLUSH ASDIRECTED PRN PRN Reason: Keep Vein Open Sodium Chloride (Saline Flush) 2.5 ml FLUSH ASDIRECTED PRN PRN Reason: Keep Vein Open Discontinued Medications Amlodipine Besylate (Norvasc) 10 mg PO ONETIME ONE Stop: 09/04/19 18:05 Last Admin: 09/04/19 18:20 Dose: 10 mg Aspirin (Aspirin) 325 mg PO ONETIME ONE Stop: 09/04/19 06:07 Last Admin: 09/04/19 06:15 Dose: 325 mg Aspirin (Aspirin) 81 mg PO BEDTIME [facility] Chlorthalidone (Chlorthalidone) 25 mg PO DAILY [facility] Last Admin: 09/05/19 08:47 Dose: 25 mg Clonidine HCl (Catapres) 0.1 mg PO ONETIME ONE Stop: 09/04/19 06:43 Last Admin: 09/04/19 06:59 Dose: 0.1 mg Hydralazine HCl (Apresoline) 20 mg IVPUSH Q6H PRN PRN Reason: Hypertension Influenza Virus Vaccine (Pharmacy To Dose - Influenza Vaccine) 1 each IM ONETIME ONE Stop: 09/04/19 06:52 Influenza Virus Vaccine (Fluzone Quad [id number] Syringe) 60 mcg IM .ONCE ONE Stop: 09/04/19 07:16 Labetalol HCl (Normodyne) 10 mg IVPUSH ONETIME ONE; Protocol Stop: 09/04/19 05:24 Last Admin: 09/04/19 05:35 Dose: 10 mg Labetalol HCl (Normodyne) 10 mg IVPUSH ONETIME ONE; Protocol Stop: 09/04/19 05:47 Last Admin: 09/04/19 05:49 Dose: 10 mg Labetalol HCl (Normodyne) 10 mg IVPUSH Q6H PRN; Protocol PRN Reason: Hypertension Last Admin: 09/04/19 18:23 Dose: 10 mg Labetalol HCl (Normodyne) 10 mg IVPUSH Q4H [facility]; Protocol Labetalol HCl (Normodyne) 10 mg IVPUSH Q6H [facility]; Protocol Potassium Chloride (Klor-Con M20) 40 meq PO ONETIME ONE Stop: 09/04/19 06:09 Last Admin: 09/04/19 06:15 Dose: 40 meq - Exam General: Alert, Oriented HEENT: Pupils Equal, Pupils Reactive, EOMI, Mucous Membr. Moist/[place] Neck: Supple Lungs: Clear to Auscultation, Normal Respiratory Effort Cardiovascular: Regular Rate, Regular Rhythm GI/Abdominal Exam: Normal Bowel Sounds, Soft, Non-Tender Extremities: Normal Inspection, Normal Range of Motion Peripheral Pulses: 3+: Dorsalis Pedis (L), Dorsalis Pedis (R) - Problem List & Annotations (1) LFTs abnormal SNOMED Code(s): 216510773 Code(s): R94.5 - ABNORMAL RESULTS OF LIVER FUNCTION STUDIES Status: Acute Current Visit: Yes (2) Hypokalemia SNOMED Code(s): 81516251 Code(s): E87.6 - HYPOKALEMIA Status: Resolved Current Visit: Yes (3) Diabetes mellitus SNOMED Code(s): 40288331 Code(s): E11.9 - TYPE 2 DIABETES MELLITUS WITHOUT COMPLICATIONS Status: Acute Current Visit: Yes Qualifiers: Diabetes mellitus type: type 2 Diabetes mellitus local intermodal truck driver insulin use: without local intermodal truck driver use Diabetes mellitus complication status: with hyperglycemia Qualified Code(s): E11.65 - Type 2 diabetes mellitus with hyperglycemia (4) Hypertensive urgency SNOMED Code(s): 548438215 Code(s): I16.0 - HYPERTENSIVE URGENCY Status: Resolved Current Visit: No - Problem List Review Problem List Initiated/Reviewed/Updated: Yes - My Orders Last 24 Hours: My Active Orders 09/04/19 10:11 Resuscitation Status Routine 09/04/19 10:15 Oxygen Therapy [RC] PRN VTE/DVT Education [RC] PER UNIT ROUTINE Vital Signs [RC] Q4H 09/04/19 10:20 Blood Glucose Check, Bedside [RC] BIDMEALS Consult to [facility] Office Supervisor [CONS] Routine Albuterol/Ipratropium [DuoNeb 3.0-0.5 MG/3 ML] 3 ml NEB Q4HRRT PRN 09/04/19 10:22 RT Aerosol Therapy [RC] ASDIRECTED 09/04/19 10:36 Consult to Case Management/Presiding Judge [CONS] Routine 09/04/19 11:19 HEPATITIS PANEL (4) [REF] Routine 09/04/19 11:30 Insulin Aspart [NovoLOG] See Protocol SUBCUT TIDAC 09/04/19 13:15 Lisinopril [Prinivil] 10 mg PO DAILY 09/04/19 21:00 atorvaSTATin [Lipitor] 20 mg PO BEDTIME 09/04/19 Lunch 2 Gram Sodium Diet [DIET] 09/05/19 09:00 Metoprolol Succinate [Toprol XL] 25 mg PO DAILY amLODIPine [Norvasc] 10 mg PO DAILY 09/05/19 21:00 Aspirin 81 mg PO BEDTIME - Plan Plan:: 1) Hypertensive urgency: Patient was found to have SBP>200, required multiple IV labetalol CT scan of the head was negative for acute stroke Numbness and tinging improved likely due to uncontrolled HTN. no focal deficits cont current antihypertensive regimen, I d/c chlorthalidone and metoprolol since BP is much better now, will try max dose of ACI and CCB New dx of HTN so patient was counselled again today about HTN and what it entails in detail for approx 10 min TSH normal , lipid profile normal , HbA1c noted Creatinine is normal cont to monitor vitals closely If BP stable over the day will d/c later today 2) DM: likely Type 2 DM HbA1c noted cont SSI Patient prefers to try oral hypoglycemic and life style changes first, will d/c on metformin 500 BID Diabetic counselling in details for 15 min 3) Hypokalemia: resolved 4) Abnormal LFTs: f/u on hepatitis profile AST:ALT ratio noted, patient doesn't drink so alcoholic hepatitis unlikely US liver grossly normal No GI symptoms cont to trend Avoid Hepatotoxic meds f/u with PCP upon dc
--- NOTE | 2019-09-05 14:08 | PCM.DCSUM1 ---
Discharge Summary - Hospital Course Free Text/Narrative:: Patient is a 49y/o M who came in to ER c/o tingling and numbness of RUE and RLE. Patient was found to be in hypertensive urgency. Received several doses of IV labetalol. CT scan ruled out acute stroke. Patient was admitted to hospital for further management. Patient was eventful transitioned off IV to PO meds. Patient was also found to be Diabetic with elevated HbA1c. Patient was started on SSI. Liver enzymes were elevated as well, US liver was normal, Hepatitis panel is pending. Patient had no insurance and hadn't seen a physician in years. Took no home Meds. Patient received extensive counselling about HTN and DM. Patient was hesitant on starting insulin and wanted to try life style modifications and oral hypoglycemic. Patient was eventually dc on oral antihypertensives and metformin and corrective insulin (SSI). F/U appt with PCP was also arranged and meds were sent to pharmacy. Patient also received glucometer upon dc. Diagnosis: Stroke: No - Discharge Data Discharge Date: 09/05/19 Discharge Disposition: Home, Self-Care 01 Condition: Fair - Referral to Home Health Primary Care Physician: PCP None - Discharge Diagnosis/Problem(s) (1) Hypertensive urgency SNOMED Code(s): 607213093 ICD Code: I16.0 - HYPERTENSIVE URGENCY Status: Resolved Current Visit: No (2) LFTs abnormal SNOMED Code(s): 871743752 ICD Code: R94.5 - ABNORMAL RESULTS OF LIVER FUNCTION STUDIES Status: Acute Current Visit: Yes (3) Hypokalemia SNOMED Code(s): 38455194 ICD Code: E87.6 - HYPOKALEMIA Status: Resolved Current Visit: Yes (4) Diabetes mellitus SNOMED Code(s): 14850586 ICD Code: E11.9 - TYPE 2 DIABETES MELLITUS WITHOUT COMPLICATIONS Status: Acute Current Visit: Yes Qualifiers: Diabetes mellitus type: type 2 Diabetes mellitus extermination inspector insulin use: without extermination inspector use Diabetes mellitus complication status: with hyperglycemia Qualified Code(s): E11.65 - Type 2 diabetes mellitus with hyperglycemia - Patient Summary/Data Consults: Consultations 09/04/19 10:20 Consult to Sales Representative [employer]s [CONS] Routine 09/04/19 10:36 Consult to Case Management/Occupational Therapy Director [CONS] Routine 09/05/19 09:49 Consult to Diabetic Nurse Specialist [CONS] Routine - Patient Instructions Diet: Heart Healthy Diet, Diabetic Diet Activity: As Tolerated, Rest and Relax Today Driving: May Drive Today Showering/Bathing: May Shower - Discharge Plan *PRESCRIPTION DRUG MONITORING PROGRAM REVIEWED*: Not Applicable *COPY OF PRESCRIPTION DRUG MONITORING REPORT IN PATIENT RICKY: Not Applicable Prescriptions/Med Rec: amLODIPine [Norvasc] 10 mg PO DAILY #30 tablet Aspirin 81 mg PO BEDTIME 30 Days #30 tab.chew atorvaSTATin [Lipitor] 20 mg PO BEDTIME #30 tablet Chlorthalidone 25 mg PO BEDTIME #30 tab Insulin Aspart [NovoLOG] See Protocol SUBCUT TIDAC #1 pen Lisinopril 40 mg PO DAILY #30 tablet metFORMIN [Glucophage] 500 mg PO BIDMEALS #60 tab Home Medications: Home Meds Aspirin 81 mg PO BEDTIME 30 Days #30 tab.chew 09/05/19 [Rx] Chlorthalidone 25 mg PO BEDTIME #30 tab 09/05/19 [Rx] Insulin Aspart [NovoLOG] See Protocol SUBCUT TIDAC #1 pen 09/05/19 [Rx] Lisinopril 40 mg PO DAILY #30 tablet 09/05/19 [Rx] amLODIPine [Norvasc] 10 mg PO DAILY #30 tablet 09/05/19 [Rx] atorvaSTATin [Lipitor] 20 mg PO BEDTIME #30 tablet 09/05/19 [Rx] metFORMIN [Glucophage] 500 mg PO BIDMEALS #60 tab 09/05/19 [Rx] Oxygen Therapy Mode: Room Air Patient Handouts: Hyperglycemia, Plbh-[id number], Hypertension, Lwpt-[id number] Referrals: [facility] [Outside] Omer Lantigua MD [Resident] - 09/16/19 2:00 pm (Please call [facility] to reschedule if this date or time does not work for you) - Discharge Summary/Plan Comment DC Time >30 min.: Yes Discharge Summary/Plan Comment: Patient is a 49y/o M who came in to ER c/o tingling and numbness of RUE and RLE. Patient was found to be in hypertensive urgency. Received several doses of IV labetalol. CT scan ruled out acute stroke. Patient was admitted to hospital for further management. Patient was eventful transitioned off IV to PO meds. Patient was also found to be Diabetic with elevated HbA1c. Patient was started on SSI. Liver enzymes were elevated as well, US liver was normal, Hepatitis panel is pending. Patient had no insurance and hadn't seen a physician in years. Took no home Meds. Patient received extensive counselling about HTN and DM. Patient was hesitant on starting insulin and wanted to try life style modifications and oral hypoglycemic. Patient was eventually dc on oral antihypertensives and metformin and corrective insulin (SSI). F/U appt with PCP was also arranged and meds were sent to pharmacy. Patient also received glucometer upon dc. - Patient Data Vitals - Most Recent: Last Vital Signs Temp 36.8 C 09/05/19 11:23 Pulse 72 09/05/19 11:23 Resp 16 09/05/19 11:23 BP 157/89 H 09/05/19 11:23 Pulse Ox 96 09/05/19 11:23 Weight - Most Recent: 239 lb 4.8 oz I&O - Last 24 hours: Intake & Output 09/04/19 09/05/19 09/05/19 22:59 06:59 14:59 Intake Total 1380 600 520 Output Total 1650 1300 Balance -270 -700 520 Lab Results - Last 24 hrs: Laboratory Results - last 24 hr 09/04/19 09/04/19 09/05/19 Range/Units 11:36 17:11 05:23 WBC 8.21 (4.0-11.0) K/uL RBC 5.17 (4.50-5.90) M/uL Hgb 16.3 (13.0-17.0) g/dL Hct 46.5 (38.0-50.0) % MCV 89.9 (80.0-98.0) fL MCH 31.5 (27.0-32.0) pg MCHC 35.1 (31.0-37.0) g/dL RDW Std Deviation 41.0 (28.0-62.0) fl RDW Coeff of Lala 13 (11.0-15.0) % Plt Count 234 (150-400) K/uL MPV 12.20 H (7.40-12.00) fL Neut % (Auto) 55.6 (48.0-80.0) % Lymph % (Auto) 34.8 (16.0-40.0) % [place] % (Auto) 6.1 (0.0-15.0) % Eos % (Auto) 3.0 (0.0-7.0) % Baso % (Auto) 0.5 (0.0-1.5) % Neut # (Auto) 4.6 (1.4-5.7) K/uL Lymph # (Auto) 2.9 H (0.6-2.4) K/uL [place] # (Auto) 0.5 (0.0-0.8) K/uL Eos # (Auto) 0.3 (0.0-0.7) K/uL Baso # (Auto) 0.0 (0.0-0.1) K/uL Nucleated RBC % 0.0 /100WBC Nucleated RBCs # 0 K/uL Sodium (136-148) mmol/L Potassium (3.5-5.1) mmol/L Chloride (98-107) mmol/L Carbon Dioxide (21.0-32.0) mmol/L BUN (7.0-18.0) mg/dL Creatinine (0.8-1.3) mg/dL Est Cr Clr Drug Dosing mL/min Estimated GFR (MDRD) ml/min Glucose (74-106) mg/dL POC Glucose 179 H 188 H (60-110) mg/dL Calcium (8.5-10.1) mg/dL Phosphorus (2.6-4.7) mg/dL Magnesium (1.8-2.4) mg/dL Total Bilirubin (0.2-1.0) mg/dL AST (15-37) IU/L ALT (14-63) IU/L Alkaline Phosphatase (46-116) U/L Total Protein (6.4-8.2) g/dL Albumin (3.4-5.0) g/dL Globulin (2.6-4.0) g/dL Albumin/Globulin Ratio (0.9-1.6) 09/05/19 09/05/19 09/05/19 Range/Units 05:23 06:32 11:08 WBC (4.0-11.0) K/uL RBC (4.50-5.90) M/uL Hgb (13.0-17.0) g/dL Hct (38.0-50.0) % MCV (80.0-98.0) fL MCH (27.0-32.0) pg MCHC (31.0-37.0) g/dL RDW Std Deviation (28.0-62.0) fl RDW Coeff of Lala (11.0-15.0) % Plt Count (150-400) K/uL MPV (7.40-12.00) fL Neut % (Auto) (48.0-80.0) % Lymph % (Auto) (16.0-40.0) % [place] % (Auto) (0.0-15.0) % Eos % (Auto) (0.0-7.0) % Baso % (Auto) (0.0-1.5) % Neut # (Auto) (1.4-5.7) K/uL Lymph # (Auto) (0.6-2.4) K/uL [place] # (Auto) (0.0-0.8) K/uL Eos # (Auto) (0.0-0.7) K/uL Baso # (Auto) (0.0-0.1) K/uL Nucleated RBC % /100WBC Nucleated RBCs # K/uL Sodium 137 (136-148) mmol/L Potassium 3.6 (3.5-5.1) mmol/L Chloride 100 (98-107) mmol/L Carbon Dioxide 29.4 (21.0-32.0) mmol/L BUN 8 (7.0-18.0) mg/dL Creatinine 1.0 (0.8-1.3) mg/dL Est Cr Clr Drug Dosing 85.38 mL/min Estimated GFR (MDRD) > 60.0 ml/min Glucose 243 H (74-106) mg/dL POC Glucose 240 H 292 H (60-110) mg/dL Calcium 8.9 (8.5-10.1) mg/dL Phosphorus 3.5 (2.6-4.7) mg/dL Magnesium 2.0 (1.8-2.4) mg/dL Total Bilirubin 1.1 H (0.2-1.0) mg/dL AST 127 H (15-37) IU/L ALT 171 H (14-63) IU/L Alkaline Phosphatase 111 (46-116) U/L Total Protein 7.9 (6.4-8.2) g/dL Albumin 3.5 (3.4-5.0) g/dL Globulin 4.4 H (2.6-4.0) g/dL Albumin/Globulin Ratio 0.8 L (0.9-1.6) Med Orders - Current: Current Medications Albuterol/Ipratropium (Duoneb 3.0-0.5 Mg/3 Ml) 3 ml NEB Q4HRRT PRN PRN Reason: Shortness Of Breath/wheezing Amlodipine Besylate (Norvasc) 10 mg PO DAILY [facility] Last Admin: 09/05/19 08:47 Dose: 10 mg Aspirin (Aspirin) 81 mg PO BEDTIME [facility] Atorvastatin Calcium (Lipitor) 20 mg PO BEDTIME [facility] Last Admin: 09/04/19 20:36 Dose: 20 mg Insulin Aspart (Novolog) 0 unit SUBCUT TIDAC [facility]; Protocol Last Admin: 09/05/19 06:36 Dose: 2 unit Lisinopril (Prinivil) 10 mg PO DAILY [facility] Last Admin: 09/05/19 08:45 Dose: 10 mg Sodium Chloride (Saline Flush) 10 ml FLUSH ASDIRECTED PRN PRN Reason: Keep Vein Open Sodium Chloride (Saline Flush) 2.5 ml FLUSH ASDIRECTED PRN PRN Reason: Keep Vein Open Discontinued Medications Amlodipine Besylate (Norvasc) 10 mg PO ONETIME ONE Stop: 09/04/19 18:05 Last Admin: 09/04/19 18:20 Dose: 10 mg Aspirin (Aspirin) 325 mg PO ONETIME ONE Stop: 09/04/19 06:07 Last Admin: 09/04/19 06:15 Dose: 325 mg Aspirin (Aspirin) 81 mg PO BEDTIME [facility] Chlorthalidone (Chlorthalidone) 25 mg PO DAILY [facility] Last Admin: 09/05/19 08:47 Dose: 25 mg Clonidine HCl (Catapres) 0.1 mg PO ONETIME ONE Stop: 09/04/19 06:43 Last Admin: 09/04/19 06:59 Dose: 0.1 mg Hydralazine HCl (Apresoline) 20 mg IVPUSH Q6H PRN PRN Reason: Hypertension Influenza Virus Vaccine (Pharmacy To Dose - Influenza Vaccine) 1 each IM ONETIME ONE Stop: 09/04/19 06:52 Influenza Virus Vaccine (Fluzone Quad Syringe) 60 mcg IM .ONCE ONE Stop: 09/04/19 07:16 Labetalol HCl (Normodyne) 10 mg IVPUSH ONETIME ONE; Protocol Stop: 09/04/19 05:24 Last Admin: 09/04/19 05:35 Dose: 10 mg Labetalol HCl (Normodyne) 10 mg IVPUSH ONETIME ONE; Protocol Stop: 09/04/19 05:47 Last Admin: 09/04/19 05:49 Dose: 10 mg Labetalol HCl (Normodyne) 10 mg IVPUSH Q6H PRN; Protocol PRN Reason: Hypertension Last Admin: 09/04/19 18:23 Dose: 10 mg Labetalol HCl (Normodyne) 10 mg IVPUSH Q4H KADEN; Protocol Labetalol HCl (Normodyne) 10 mg IVPUSH Q6H KADEN; Protocol Metoprolol Succinate (Toprol Xl) 25 mg PO DAILY KADEN Last Admin: 09/05/19 08:46 Dose: 25 mg Potassium Chloride (Klor-Con M20) 40 meq PO ONETIME ONE Stop: 09/04/19 06:09 Last Admin: 09/04/19 06:15 Dose: 40 meq
[2019-09-05] MEDS ORDERED: Aspirin 81 MG Tab.Chew PO SCH (21:00)
== END 2019-09-05 15:50 | disposition home or self-care (01) ==
LOC: MW.ED 05:06 → MW.MS 06:16
PROVIDERS: ADMIT Internal Medicine; ATTEND Internal Medicine
DX: I16.0 Hypertensive urgency (principal); E87.6 Hypokalemia; E11.65 Type 2 diabetes mellitus with hyperglycemia; I10 Essential (primary) hypertension; R94.5 Abnormal results of liver function studies; Z23 Encounter for immunization
CPT/HCPCS: 36415; 70450; 70450-26; 71045; 71045-26; 76705; 76705-26; 80053; 80061; 80074; 81003; 82962; 83036; 83735; 84100; 84443; 84484; 85025; 85610; 90686; 93005; 96374; 96376; 99285-25; A9270-GY; G0008; G0378; J1815-GY; J3490

== ENCOUNTER 2021-09-27 16:15 | Inpatient (IN) | payer BC, OTHER ==
[2021-09-27] MEDS ORDERED: Sodium Chloride 0.9% 2.5 ML Syringe FLUSH PRN (16:17)
[2021-09-27] MEDS ORDERED: Aspirin 81 MG Tab.Chew PO ONE (16:17)
[2021-09-27] MEDS ORDERED: Sodium Chloride 0.9% 10 ML Syringe FLUSH PRN (16:17)
[2021-09-27] MEDS ORDERED: Sodium Chloride 0.9% 1,000 ML IV ONE ×2 (16:29→17:57)
[2021-09-27] MEDS ORDERED: Dexamethasone 10 MG/ML SDV IVPUSH ONE (16:29)
--- NOTE | 2021-09-27 16:29 | EDM.PDOC ---
ED HPI GENERAL MEDICAL PROBLEM - General Chief Complaint: Respiratory Problem Stated Complaint: SOB CHEST PAINS BACK PAIN Time Seen by Provider: 09/27/21 16:16 Source of Information: Reports: Patient History Limitations: Reports: No Limitations - History of Present Illness INITIAL COMMENTS - FREE TEXT/NARRATIVE: HISTORY AND PHYSICAL: History of present illness: Patient is a 51-year-old male who presents to the emergency room with complaints of shortness of breath. Patient states he has had the symptoms over the past 4 days, initially he thought he had COVID-19 but took a test on Monday which was negative. He states symptoms have progressively gotten worse. He is also complaining of chest tightness and low-grade fevers. Upon arrival to the emergency room he is dyspneic with an oxygen saturation of 77% on room air. No previous history of any PE/DVT. Past medical history of hypertension, does not take medication daily. Patient denies any chills, headache, change in vision, syncope or near syncope. Denies any back pain, abdominal pain, nausea, vomiting, diarrhea, constipation or dysuria. Has not noted any blood in urine or stool. Patient has been eating and drinking appropriately. No recent travel or sick contacts. Review of systems: As per history of present illness and below otherwise all systems reviewed and negative. Past medical history: As per history of present illness and as reviewed below otherwise noncontributory. Surgical history: As per history of present illness and as reviewed below otherwise noncontributory. Social history: See social history for further information Family history: As per history of present illness and as reviewed below otherwise noncontributory. Physical exam: General: Well developed and well nourished 51 year old male. Alert and orientated x 3. Nontoxic in appearance and in no acute distress. Vital signs are stable and have been reviewed by me. Nursing notes were reviewed. HEENT: Atraumatic, normocephalic, pupils equal and reactive bilaterally, negative for conjunctival pallor or scleral icterus, mucous membranes dry, TMs normal bilaterally, throat clear, neck supple, nontender, trachea midline. No drooling or trismus noted. No meningeal signs. No hot potato voice noted. Lungs: Diminished with poor air exchange to auscultation bilaterally. No wheezes, rales, or rhonchi. Chest nontender. Moderate work of breathing and mild accessory muscles used. Heart: S1S2, regular rate and rhythm without overt murmur, gallops, or rubs. No JVD. No peripheral edema Abdomen: Soft, nondistended, nontender. Normoactive bowel sounds. Negative for masses or costovertebral tenderness. Skin: Intact, warm, and diaphoretic. No lesions or rashes noted. Hematologic: No petechiae or purpra. Mucosa appropriate color and normal nail bed color and refill. Extremities: Atraumatic, moves all extremities per self without difficulty or deficits, negative for cords or calf pain. Neurovascular unremarkable. Neuro: Awake, alert, oriented. Cranial nerves II through XII unremarkable. Cerebellum unremarkable. Motor and sensory unremarkable throughout. Exam nonfocal. Psychiatric: Mood and affect are appropriate. Normal thought process. Answering questions appropriately. Please note that the patient was seen and evaluated during the 2019 SARS-CoV-2 novel coronavirus pandemic period. Community viral transmission is ongoing at time of this encounter and the emergency department is operating under pandemic response procedures. Medical Decision Making: Patient is a 51-year-old male who presents to the emergency room with complaints of shortness of breath over the past few days. He states he took a Covid test on Monday which was negative but he has progressively gotten worse. Upon arrival he is dyspneic, diaphoretic with an oxygen saturation of 77% on room air. Patient was placed on 6 L per nasal cannula and satting at 90 to 92%. Will do basic lab work, troponin, CT of chest to rule out PE and COVID-19 testing. Patient does appear mildly dehydrated, sodium and chloride are low. Potassium of 3.2. Will replace oral K-Dur. Patient did receive 1 L of fluids, bolus. CT chest shows no evidence of pulmonary embolus. Extensive bilateral ground-glass opacities throughout both lungs suggestive of a viral pneumonia, likely COVID-19 pneumonia.Hepatic steatosis. I have talked with the patient about today's findings, in addition to providing specific details for plan of care. Reassessment at the time of disposition demonstrates that the patient is in no acute distress. We discussed remdesivir, patient is agreeable. Dr. Benson was consulted on this case, she is agreeable to keeping him for further care and management. Diagnostics: CBC, CMP, COVID-19, CT chest, UA, EKG, troponin Therapeutics: IV fluids, K-Dur, Remdesivr, Tylenol, Toradol, Decadron Impression: COVID 19 pneumonia Dehydration Hypokalemia Plan: Inpatient admission with telemetry Definitive disposition and diagnosis as appropriate pending reevaluation and review of above. - Related Data Allergies Allergy/AdvReac Type Severity Reaction Status Date / Time No Known Allergies Allergy Verified 09/27/21 16:31 Home Meds: Home Meds Lisinopril 40 mg PO DAILY #30 tablet 09/05/19 [Rx] amLODIPine [Norvasc] 10 mg PO DAILY #30 tablet 09/05/19 [Rx] Past Medical History Endocrine/Metabolic History: Reports: Obesity/BMI 30+ - Past Surgical History Musculoskeletal Surgical History: Reports: Other (See Below) Other Musculoskeletal Surgeries/Procedures:: knee and finger surgery Social & Family History - Family History Cardiac: Reports: Hypertension - Caffeine Use Caffeine Use: Reports: Coffee, Soda, Tea ED ROS GENERAL - Review of Systems Review Of Systems: Comprehensive ROS is negative, except as noted in HPI. ED EXAM, GENERAL - Physical Exam Exam: See Below (See dictation) Course - Vital Signs Last Recorded V/S: Last Vital Signs Temp 97.7 F 09/27/21 17:00 Pulse 87 09/27/21 19:00 Resp 22 H 09/27/21 19:00 BP 155/131 H 09/27/21 19:00 Pulse Ox 95 09/27/21 19:00 - Orders/Labs/Meds Orders: Active Orders 24 hr Category Date Time Status Admission Status [Patient Status] [ADT] Stat ADT 09/27/21 19:47 Ordered Cardiac Monitoring [RC] . DIRECTED Care 09/27/21 16:17 Active CBC WITH AUTO DIFF [HEME] Stat Lab 09/27/21 16:20 Results CRP [C-REACTIVE PROTEIN] [CHEM] Stat Lab 09/27/21 19:48 Ordered CULTURE URINE [MREF] Stat Lab 09/27/21 18:45 Received Sodium Chloride 0.9% [Normal Saline] 1,000 ml Med 09/27/21 16:29 Active IV STAT Sodium Chloride 0.9% [Normal Saline] 1,000 ml Med 09/27/21 17:57 Active IV STAT Sodium Chloride 0.9% [Saline Flush] Med 09/27/21 16:17 Active 10 ml FLUSH ASDIRECTED PRN Sodium Chloride 0.9% [Saline Flush] Med 09/27/21 16:17 Active 2.5 ml FLUSH ASDIRECTED PRN Saline Lock Insert [OM.PC] Stat Oth 09/27/21 16:17 Ordered Medication Orders Sodium Chloride (Normal Saline) 1,000 mls @ 100 mls/hr IV STAT ONE Stop: 09/28/21 02:28 Last Admin: 09/27/21 16:36 Dose: 100 mls/hr Documented by: KAIDEN Sodium Chloride (Normal Saline) 1,000 mls @ 125 mls/hr IV STAT ONE Stop: 09/28/21 01:56 Last Admin: 09/27/21 18:13 Dose: 125 mls/hr Documented by: KAIDEN Sodium Chloride (Sodium Chloride 0.9% 10 Ml Syringe) 10 ml FLUSH ASDIRECTED PRN PRN Reason: Keep Vein Open Last Admin: 09/27/21 16:36 Dose: 10 ml Documented by: KAIDEN Sodium Chloride (Sodium Chloride 0.9% 2.5 Ml Syringe) 2.5 ml FLUSH ASDIRECTED PRN PRN Reason: Keep Vein Open Last Admin: 09/27/21 16:37 Dose: 2.5 ml Documented by: KAIDEN Labs: Laboratory Tests 09/27/21 09/27/21 09/27/21 Range/Units 16:20 16:20 16:20 WBC 9.29 (4.0-11.0) K/uL RBC 5.20 (4.50-5.90) M/uL Hgb 16.3 (13.0-17.0) g/dL Hct 44.2 (38.0-50.0) % MCV 85.0 (80.0-98.0) fL MCH 31.3 (27.0-32.0) pg MCHC 36.9 (31.0-37.0) g/dL RDW Std Deviation 37.1 (28.0-62.0) fl RDW Coeff of Lala 12 (11.0-15.0) % Plt Count 178 (150-400) K/uL MPV 11.70 (7.40-12.00) fL Neut % (Auto) 77.2 (48.0-80.0) % Lymph % (Auto) 15.6 L (16.0-40.0) % Pratt % (Auto) 7.1 (0.0-15.0) % Eos % (Auto) 0.0 (0.0-7.0) % Baso % (Auto) 0.1 (0.0-1.5) % Neut # (Auto) 7.1 H (1.4-5.7) K/uL Lymph # (Auto) 1.4 (0.6-2.4) K/uL Pratt # (Auto) 0.7 (0.0-0.8) K/uL Eos # (Auto) 0.0 (0.0-0.7) K/uL Baso # (Auto) 0.0 (0.0-0.1) K/uL Add Manual Diff YES Nucleated RBC % 0.0 /100WBC Nucleated RBCs # 0 K/uL Sodium 128 L (136-148) mmol/L Potassium 3.2 L (3.5-5.1) mmol/L Chloride 90 L (98-107) mmol/L Carbon Dioxide 29.1 (21.0-32.0) mmol/L BUN 8 (7.0-18.0) mg/dL Creatinine 0.9 (0.8-1.3) mg/dL Est Cr Clr Drug Dosing 92.83 mL/min Estimated GFR (MDRD) > 60.0 ml/min Glucose 201 H (74-106) mg/dL Hemoglobin A1c (4.5 - 6.2) % Calcium 8.4 L (8.5-10.1) mg/dL Total Bilirubin 0.9 (0.2-1.0) mg/dL AST 67 H (15-37) IU/L ALT 73 H (14-63) IU/L Alkaline Phosphatase 86 (46-116) U/L Troponin I < 0.050 (0.000-0.056) ng/mL Total Protein 8.1 (6.4-8.2) g/dL Albumin 3.1 L (3.4-5.0) g/dL Globulin 5.0 H (2.6-4.0) g/dL Albumin/Globulin Ratio 0.6 L (0.9-1.6) Urine Color Urine Appearance Urine pH (5.0-8.0) Ur Specific [place] (1.001-1.035) Urine Protein (NEGATIVE) mg/dL Urine Glucose (UA) (NEGATIVE) mg/dL Urine Ketones (NEGATIVE) mg/dL Urine Occult Blood (NEGATIVE) Urine Nitrite (NEGATIVE) Urine Bilirubin (NEGATIVE) Urine Urobilinogen (<2.0) EU/dL Ur Leukocyte Esterase (NEGATIVE) Urine RBC (0-2/HPF) Urine WBC (0-5/HPF) Ur Epithelial Cells (NONE-FEW) Urine Bacteria (NEGATIVE) Urine Mucus (NONE-MOD) SARS-CoV-2 RNA (YARON) POSITIVE H (NEGATIVE) 09/27/21 09/27/21 Range/Units 16:20 18:45 WBC (4.0-11.0) K/uL RBC (4.50-5.90) M/uL Hgb (13.0-17.0) g/dL Hct (38.0-50.0) % MCV (80.0-98.0) fL MCH (27.0-32.0) pg MCHC (31.0-37.0) g/dL RDW Std Deviation (28.0-62.0) fl RDW Coeff of [place]ala (11.0-15.0) % Plt Count (150-400) K/uL MPV (7.40-12.00) fL Neut % (Auto) (48.0-80.0) % Lymph % (Auto) (16.0-40.0) % Pratt % (Auto) (0.0-15.0) % Eos % (Auto) (0.0-7.0) % Baso % (Auto) (0.0-1.5) % Neut # (Auto) (1.4-5.7) K/uL Lymph # (Auto) (0.6-2.4) K/uL Pratt # (Auto) (0.0-0.8) K/uL Eos # (Auto) (0.0-0.7) K/uL Baso # (Auto) (0.0-0.1) K/uL Add Manual Diff Nucleated RBC % /100WBC Nucleated RBCs # K/uL Sodium (136-148) mmol/L Potassium (3.5-5.1) mmol/L Chloride (98-107) mmol/L Carbon Dioxide (21.0-32.0) mmol/L BUN (7.0-18.0) mg/dL Creatinine (0.8-1.3) mg/dL Est Cr Clr Drug Dosing mL/min Estimated GFR (MDRD) ml/min Glucose (74-106) mg/dL Hemoglobin A1c 9.7 H (4.5 - 6.2) % Calcium (8.5-10.1) mg/dL Total Bilirubin (0.2-1.0) mg/dL AST (15-37) IU/L ALT (14-63) IU/L Alkaline Phosphatase (46-116) U/L Troponin I (0.000-0.056) ng/mL Total Protein (6.4-8.2) g/dL Albumin (3.4-5.0) g/dL Globulin (2.6-4.0) g/dL Albumin/Globulin Ratio (0.9-1.6) Urine Color YELLOW Urine Appearance CLEAR Urine pH 6.0 (5.0-8.0) Ur Specific [place] <= 1.005 (1.001-1.035) Urine Protein NEGATIVE (NEGATIVE) mg/dL Urine Glucose (UA) 250 H (NEGATIVE) mg/dL Urine Ketones TRACE H (NEGATIVE) mg/dL Urine Occult Blood TRACE-INTACT H (NEGATIVE) Urine Nitrite NEGATIVE (NEGATIVE) Urine Bilirubin NEGATIVE (NEGATIVE) Urine Urobilinogen 0.2 (<2.0) EU/dL Ur Leukocyte Esterase SMALL H (NEGATIVE) Urine RBC NONE SEEN (0-2/HPF) Urine WBC 3-6 (0-5/HPF) Ur Epithelial Cells RARE (NONE-FEW) Urine Bacteria FEW (NEGATIVE) Urine Mucus LIGHT (NONE-MOD) SARS-CoV-2 RNA (YARON) (NEGATIVE) Meds: Medications Generic Name Dose Route Start Last Admin Trade Name Freq PRN Reason Stop Dose Admin Sodium Chloride 1,000 mls @ 100 mls/hr 09/27/21 16:29 09/27/21 16:36 Normal Saline IV 09/28/21 02:28 100 mls/hr STAT ONE Administration Sodium Chloride 1,000 mls @ 125 mls/hr 09/27/21 17:57 09/27/21 18:13 Normal Saline IV 09/28/21 01:56 125 mls/hr STAT ONE Administration Sodium Chloride 10 ml 09/27/21 16:17 09/27/21 16:36 Sodium Chloride 0.9% 10 Ml Syringe FLUSH 10 ml ASDIRECTED PRN Administration Keep Vein Open Sodium Chloride 2.5 ml 09/27/21 16:17 09/27/21 16:37 Sodium Chloride 0.9% 2.5 Ml Syringe FLUSH 2.5 ml ASDIRECTED PRN Administration Keep Vein Open Discontinued Medications Generic Name Dose Route Start Last Admin Trade Name Freq PRN Reason Stop Dose Admin Acetaminophen 1,000 mg 09/27/21 17:57 09/27/21 18:13 Acetaminophen 500 Mg Tab PO 09/27/21 17:58 1,000 mg ONETIME ONE Administration Aspirin 324 mg 09/27/21 16:17 09/27/21 16:37 Aspirin 81 Mg Tab.Chew PO 09/27/21 16:18 324 mg ONETIME ONE Administration Dexamethasone 6 mg 09/27/21 16:29 09/27/21 16:36 Dexamethasone 10 Mg/Ml Sdv IVPUSH 09/27/21 16:30 6 mg ONETIME ONE Administration Remdesivir 200 mg/ Sodium 250 mls @ 250 mls/hr 09/27/21 17:58 09/27/21 19:04 Chloride IV 09/27/21 17:59 250 mls/hr ONETIME ONE Administration Iopamidol 100 ml 09/27/21 18:53 09/27/21 18:53 Iopamidol 755 Mg/Ml 500 Ml Multipack Bottle IVPUSH 09/27/21 18:54 100 ml ONETIME STA Administration Ketorolac Tromethamine 30 mg 09/27/21 17:57 09/27/21 18:14 Ketorolac 30 Mg/Ml Sdv IVPUSH 09/27/21 17:58 30 mg ONETIME ONE Administration Potassium Chloride 40 meq 09/27/21 17:58 09/27/21 18:14 Potassium Chloride 20 Meq Tab.Er PO 09/27/21 17:59 40 meq ONETIME ONE Administration Departure - Departure Time of Disposition: 19:50 Disposition: Admitted As Inpatient 68 Clinical Impression: Pneumonia due to COVID-19 virus, Hypoxia, Hypokalemia - Discharge Information Referrals: PCP,None [Primary Care Provider] - Forms: ED Department Discharge Sepsis Event Note (ED) - Evaluation Sepsis Screening Result: No Definite Risk - Focused Exam Vital Signs: Vital Signs Temp Pulse Resp BP Pulse Ox 09/27/21 19:00 87 22 H 155/131 H 95 09/27/21 18:00 95 22 H 174/77 H 87 L 09/27/21 17:00 97.7 F 93 20 185/99 H 91 L 09/27/21 16:20 100.6 F 100 24 H 185/96 H 77 L - My Orders Last 24 Hours: My Active Orders 09/27/21 16:17 Cardiac Monitoring [RC] . DIRECTED Sodium Chloride 0.9% [Saline Flush] 10 ml FLUSH ASDIRECTED PRN Sodium Chloride 0.9% [Saline Flush] 2.5 ml FLUSH ASDIRECTED PRN Saline Lock Insert [OM.PC] Stat 09/27/21 16:20 CBC WITH AUTO DIFF [HEME] Stat 09/27/21 16:29 Sodium Chloride 0.9% [Normal Saline] 1,000 ml IV STAT 09/27/21 17:57 Sodium Chloride 0.9% [Normal Saline] 1,000 ml IV STAT 09/27/21 18:45 CULTURE URINE [MREF] Stat 09/27/21 19:47 Admission Status [Patient Status] [ADT] Stat 09/27/21 19:48 CRP [C-REACTIVE PROTEIN] [CHEM] Stat - Assessment/Plan Last 24 Hours: My Active Orders 09/27/21 16:17 Cardiac Monitoring [RC] . DIRECTED Sodium Chloride 0.9% [Saline Flush] 10 ml FLUSH ASDIRECTED PRN Sodium Chloride 0.9% [Saline Flush] 2.5 ml FLUSH ASDIRECTED PRN Saline Lock Insert [OM.PC] Stat 09/27/21 16:20 CBC WITH AUTO DIFF [HEME] Stat 09/27/21 16:29 Sodium Chloride 0.9% [Normal Saline] 1,000 ml IV STAT 09/27/21 17:57 Sodium Chloride 0.9% [Normal Saline] 1,000 ml IV STAT 09/27/21 18:45 CULTURE URINE [MREF] Stat 09/27/21 19:47 Admission Status [Patient Status] [ADT] Stat 09/27/21 19:48 CRP [C-REACTIVE PROTEIN] [CHEM] Stat
--- NOTE | 2021-09-27 16:33 | PCM.EKG ---
#1 Interpretation EKG Date: 09/27/21 Time: 16:33 EKG Interpretation Comments: Sinus rhythm rate of 99 normal axis and intervals no acute ischemia.
[2021-09-27 17:24] LABS: BLOOD UREA NITROGEN,BUN 8 mg/dL (7.0-18.0); CARBON DIOXIDE,CO2 29.1 mmol/L (21.0-32.0); CHLORIDE,CL 90 mmol/L (98-107); GLUCOSE RANDOM 201 mg/dL (74-106); POTASSIUM,K 3.2 mmol/L (3.5-5.1); SODIUM,NA 128 mmol/L (136-148)
[2021-09-27] MEDS ORDERED: Ketorolac 30 MG/ML SDV IVPUSH ONE (17:57)
[2021-09-27] MEDS ORDERED: Acetaminophen 500 MG Tab PO ONE (17:57)
[2021-09-27] MEDS ORDERED: Potassium Chloride 20 MEQ Tab.ER PO ONE (17:58)
[2021-09-27] MEDS ORDERED: REMDESIVIR 200 MG in Sodium Chloride 0.9% 250 ML IV ONE (17:58)
[2021-09-27 18:08] LABS: HEMOGLOBIN A1C 9.7 %
[2021-09-27] MEDS ORDERED: Iopamidol 755 MG/ML 500 ML Multipack Bottle IVPUSH STA (18:53)
--- NOTE | 2021-09-27 19:44 | CT ---
INDICATION: Hypoxia, shortness of breath and chest pain TECHNIQUE: CT chest PE was acquired with 100 cc Isovue 370 intravenous contrast. COMPARISON: None. FINDINGS: Heart and vasculature: Contrast opacification of the pulmonary arterial tree is adequate. No sign of pulmonary embolism. Thoracic aorta is normal in caliber. No pericardial effusion. Lungs and pleural: No pleural effusion or pneumothorax. Extensive bilateral ground-glass opacities throughout both lungs. Lymph nodes/mediastinum: Subcarinal lymph nodes measure 15 millimeters in short axis. Right hilar lymph nodes measure up to 12 millimeters. Chest wall: Partial right pectoralis major muscle atrophy. Upper abdomen: Diffusely decreased density of the liver without focal lesion. Bones: Unremarkable for age. IMPRESSION: 1. No evidence of pulmonary embolus. 2. Extensive bilateral ground-glass opacities throughout both lungs suggestive of a viral pneumonia, likely COVID-19 pneumonia. 3. Hepatic steatosis. Please note that all CT scans at this facility use dose modulation, iterative reconstruction, and/or weight-based dosing when appropriate to reduce radiation dose to as low as reasonably achievable. Dictated by Tyler Harry MD @ 09/27/2021 7:43:10 PM (Electronically Signed)
[2021-09-27] MEDS ORDERED: Ondansetron 4 MG/2 ML SDV IVPUSH PRN (21:24)
[2021-09-27] MEDS ORDERED: Albuterol/Ipratropium 3.0-0.5 MG/3 ML Neb Soln NEB PRN (21:24)
--- NOTE | 2021-09-27 21:34 | PCM.HP.2 ---
H&P History of Present Illness - General Date of Service: 09/27/21 Admit Problem/Dx: Admission Diagnosis/Problem Admission Diagnosis/Problem Hypoxia - History of Present Illness Initial Comments - Free Text/Narative: Patient is a 51-year-old male with pmh of htn , DM who presents to the emergency room with complaints of shortness of breath. Patient states he has had the symptoms over the past 4 days, initially he thought he had COVID-19 but took a test on Monday which was negative. He states symptoms have progressively gotten worse. Upon arrival to the emergency room he is dyspneic with an oxygen saturation of 77% on room air. No previous history of any PE/DVT. does not take medication daily. Patient denies any chills, headache, change in vision, syncope or near syncope. Denies any back pain, abdominal pain, nausea, vomiting, diarrhea, constipation or dysuria. Has not noted any blood in urine or stool. Patient has been eating and drinking appropriately. No recent travel or sick contacts. In the ER patient was found to be Covid positive, CTA of the chest ruled out PE but did show extensive bilateral groundglass opacities throughout the both lungs suggestive of viral pneumonia likely Covid as well as hepatic steatosis. Patient needed to be put on 6 L of oxygen to maintain sats more than 90%. Patient received IV remdesivir and Decadron in the ER and was admitted to the hospital for further management - Related Data Allergies/Adverse Reactions: Allergies Allergy/AdvReac Type Severity Reaction Status Date / Time No Known Allergies Allergy Verified 09/27/21 16:31 Home Medications: Home Meds Lisinopril 40 mg PO DAILY #30 tablet 09/05/19 [Rx] amLODIPine [Norvasc] 10 mg PO DAILY #30 tablet 09/05/19 [Rx] Past Medical History Cardiovascular History: Reports: High Cholesterol, Hypertension Endocrine/Metabolic History: Reports: Diabetes, Type II, Obesity/BMI 30+ - Past Surgical History Cardiovascular Surgical History: Reports: None Musculoskeletal Surgical History: Reports: Other (See Below) Other Musculoskeletal Surgeries/Procedures:: knee and finger surgery Social & Family History - Family History Family Medical History: No Pertinent Family History Cardiac: Reports: Hypertension - Tobacco Use Tobacco Use Status *Q: Never Tobacco User - Caffeine Use Caffeine Use: Reports: None - Recreational Drug Use Recreational Drug Use: No H&P Review of Systems - Review of Systems: Review Of Systems: See Below General: Reports: Fever, Chills, Malaise, Weakness, Fatigue Pulmonary: Reports: Shortness of Breath, Cough, Sputum Cardiovascular: Reports: Dyspnea on Exertion. Denies: Chest Pain, Palpitations, Orthopnea Gastrointestinal: Reports: Anorexia. Denies: Abdominal Pain, Black Stool, Bloody Stool, Constipation, Diarrhea Genitourinary: Denies: Dysuria, Frequency, Burning, Pain Musculoskeletal: Denies: Neck Pain, Shoulder Pain, Arm Pain, Back Pain Skin: Denies: Cyanosis, Jaundice, Mottled, Pallor Psychiatric: Denies: Confusion, Depression, Mood Lability, Anxiety, Agitation Exam - Exam Exam: See Below - Vital Signs Vital Signs: Last Vital Signs Temp 36.5 C 09/27/21 21:00 Pulse 70 09/27/21 21:00 Resp 22 H 09/27/21 21:00 BP 161/66 H 09/27/21 21:00 Pulse Ox 96 09/27/21 21:00 Weight: 99.79 kg - Exam Quality Assessment: Supplemental Oxygen General: Alert, Oriented, Mild Distress Neck: Supple Lungs: Normal Respiratory Effort, Decreased Breath Sounds, Crackles Cardiovascular: Regular Rate, Regular Rhythm GI/Abdominal Exam: Normal Bowel Sounds, Soft, Non-Tender Extremities: Normal Inspection, Normal Range of Motion, No Pedal Edema - Patient Data Lab Results Last 24 hrs: Laboratory Results - last 24 hr 09/27/21 09/27/21 09/27/21 Range/Units 16:20 16:20 16:20 WBC 9.29 (4.0-11.0) K/uL RBC 5.20 (4.50-5.90) M/uL Hgb 16.3 (13.0-17.0) g/dL Hct 44.2 (38.0-50.0) % MCV 85.0 (80.0-98.0) fL MCH 31.3 (27.0-32.0) pg MCHC 36.9 (31.0-37.0) g/dL RDW Std Deviation 37.1 (28.0-62.0) fl RDW Coeff of Lala 12 (11.0-15.0) % Plt Count 178 (150-400) K/uL MPV 11.70 (7.40-12.00) fL Neut % (Auto) 77.2 (48.0-80.0) % Lymph % (Auto) 15.6 L (16.0-40.0) % Bacon % (Auto) 7.1 (0.0-15.0) % Eos % (Auto) 0.0 (0.0-7.0) % Baso % (Auto) 0.1 (0.0-1.5) % Neut # (Auto) 7.1 H (1.4-5.7) K/uL Lymph # (Auto) 1.4 (0.6-2.4) K/uL Bacon # (Auto) 0.7 (0.0-0.8) K/uL Eos # (Auto) 0.0 (0.0-0.7) K/uL Baso # (Auto) 0.0 (0.0-0.1) K/uL Add Manual Diff LEAD SOFTWARE TESTER Neutrophils % (Manual) Cancelled Band Neutrophils % Cancelled Lymphocytes % (Manual) Cancelled Atypical Lymphs % Cancelled Immat Monocytes % (Man) Cancelled Monocytes % (Manual) Cancelled Eosinophils % (Manual) Cancelled Basophils % (Manual) Cancelled Metamyelocytes % Cancelled Myelocytes % Cancelled Promyelocytes % Cancelled Blast Cells % Cancelled Plasma Cell % (Manual) Cancelled Nucleated RBC % 0.0 /100WBC Immature Gran # Cancelled Absolute Neutrophils Cancelled Absolute Seg Neuts Cancelled Band Neutrophils # Cancelled Lymphocytes # (Manual) Cancelled Monocytes # (Manual) Cancelled Eosinophils # (Manual) Cancelled Basophils # (Manual) Cancelled Absolute Metamyelocyte Cancelled Absolute Myelocytes Cancelled Absolute Promyelocytes Cancelled Absolute Plasma Cells Cancelled Nucleated RBCs Cancelled Nucleated RBCs # 0 K/uL Differential Comment Cancelled Pathologist Review Cancelled Bilobed Neuts Cancelled Hypersegmented Neuts Cancelled Variant Lymphocytes Cancelled Atypical Lymphocytes Cancelled Abnormal Lymphocytes Cancelled Plasmacytoid Lymphs Cancelled Reactive Lymphocytes Cancelled Vacuolated Monocytes Cancelled Absolute Blast Cells Cancelled Smudge Cells Cancelled Toxic Granulation Cancelled Dohle Bodies Cancelled Pelger-Huet Cells Cancelled Megakaryocytic Frags Cancelled Kirsten Rods Cancelled WBC Morphology Comment Cancelled Platelet Estimate Cancelled Hypogranular Platelets Cancelled Platelet Agranulation Cancelled Clumped Platelets Cancelled Giant Platelets Cancelled Platelet Satelliting Cancelled Bizarre Platelets Cancelled Plt Morphology Comment Cancelled Polychromasia Cancelled Hypochromasia Cancelled Poikilocytosis Cancelled Basophilic Stippling Cancelled Anisocytosis Cancelled Microcytosis Cancelled Macrocytosis Cancelled Spherocytes Cancelled Micro Spherocytes Cancelled Pappenheimer Bodies Cancelled Siderocytes Cancelled Sickle Cells Cancelled Target Cells Cancelled Tear Drop Cells Cancelled Ovalocytes Cancelled Stomatocytes Cancelled Helmet Cells Cancelled [place] Bodies Cancelled [place] Rings Cancelled Jacklyn Cells Cancelled Elliptocytes Cancelled Acanthocytes (Spur) Cancelled Rouleaux Cancelled Hemoglobin C Crystals Cancelled Schistocytes Cancelled RBC Morph Comment Cancelled Smear Path Review Cancelled David Bodies Cancelled Sodium 128 L (136-148) mmol/L Potassium 3.2 L (3.5-5.1) mmol/L Chloride 90 L (98-107) mmol/L Carbon Dioxide 29.1 (21.0-32.0) mmol/L BUN 8 (7.0-18.0) mg/dL Creatinine 0.9 (0.8-1.3) mg/dL Est Cr Clr Drug Dosing 92.83 mL/min Estimated GFR (MDRD) > 60.0 ml/min Glucose 201 H (74-106) mg/dL Hemoglobin A1c (4.5 - 6.2) % Calcium 8.4 L (8.5-10.1) mg/dL Total Bilirubin 0.9 (0.2-1.0) mg/dL AST 67 H (15-37) IU/L ALT 73 H (14-63) IU/L Alkaline Phosphatase 86 (46-116) U/L Troponin I < 0.050 (0.000-0.056) ng/mL C-Reactive Protein (0.00-0.90) mg/dL Total Protein 8.1 (6.4-8.2) g/dL Albumin 3.1 L (3.4-5.0) g/dL Globulin 5.0 H (2.6-4.0) g/dL Albumin/Globulin Ratio 0.6 L (0.9-1.6) Urine Color Urine Appearance Urine pH (5.0-8.0) Ur Specific [place] (1.001-1.035) Urine Protein (NEGATIVE) mg/dL Urine Glucose (UA) (NEGATIVE) mg/dL Urine Ketones (NEGATIVE) mg/dL Urine Occult Blood (NEGATIVE) Urine Nitrite (NEGATIVE) Urine Bilirubin (NEGATIVE) Urine Urobilinogen (<2.0) EU/dL Ur Leukocyte Esterase (NEGATIVE) Urine RBC (0-2/HPF) Urine WBC (0-5/HPF) Ur Epithelial Cells (NONE-FEW) Urine Bacteria (NEGATIVE) Urine Mucus (NONE-MOD) SARS-CoV-2 RNA (YARON) POSITIVE H (NEGATIVE) Bld Parasites Quantity Cancelled Slides for Path Review Cancelled 09/27/21 09/27/21 09/27/21 Range/Units 16:20 16:20 18:45 WBC (4.0-11.0) K/uL RBC (4.50-5.90) M/uL Hgb (13.0-17.0) g/dL Hct (38.0-50.0) % MCV (80.0-98.0) fL MCH (27.0-32.0) pg MCHC (31.0-37.0) g/dL RDW Std Deviation (28.0-62.0) fl RDW Coeff of Lala (11.0-15.0) % Plt Count (150-400) K/uL MPV (7.40-12.00) fL Neut % (Auto) (48.0-80.0) % Lymph % (Auto) (16.0-40.0) % Bacon % (Auto) (0.0-15.0) % Eos % (Auto) (0.0-7.0) % Baso % (Auto) (0.0-1.5) % Neut # (Auto) (1.4-5.7) K/uL Lymph # (Auto) (0.6-2.4) K/uL Bacon # (Auto) (0.0-0.8) K/uL Eos # (Auto) (0.0-0.7) K/uL Baso # (Auto) (0.0-0.1) K/uL Add Manual Diff Neutrophils % (Manual) Band Neutrophils % Lymphocytes % (Manual) Atypical Lymphs % Immat Monocytes % (Man) Monocytes % (Manual) Eosinophils % (Manual) Basophils % (Manual) Metamyelocytes % Myelocytes % Promyelocytes % Blast Cells % Plasma Cell % (Manual) Nucleated RBC % /100WBC Immature Gran # Absolute Neutrophils Absolute Seg Neuts Band Neutrophils # Lymphocytes # (Manual) Monocytes # (Manual) Eosinophils # (Manual) Basophils # (Manual) Absolute Metamyelocyte Absolute Myelocytes Absolute Promyelocytes Absolute Plasma Cells Nucleated RBCs Nucleated RBCs # K/uL Differential Comment Pathologist Review Bilobed Neuts Hypersegmented Neuts Variant Lymphocytes Atypical Lymphocytes Abnormal Lymphocytes Plasmacytoid Lymphs Reactive Lymphocytes Vacuolated Monocytes Absolute Blast Cells Smudge Cells Toxic Granulation Dohle Bodies Pelger-Huet Cells Megakaryocytic Frags Kirsten Rods WBC Morphology Comment Platelet Estimate Hypogranular Platelets Platelet Agranulation Clumped Platelets Giant Platelets Platelet Satelliting Bizarre Platelets Plt Morphology Comment Polychromasia Hypochromasia Poikilocytosis Basophilic Stippling Anisocytosis Microcytosis Macrocytosis Spherocytes Micro Spherocytes Pappenheimer Bodies Siderocytes Sickle Cells Target Cells Tear Drop Cells Ovalocytes Stomatocytes Helmet Cells [place] Bodies [place] Rings Jacklyn Cells Elliptocytes Acanthocytes (Spur) Rouleaux Hemoglobin C Crystals Schistocytes RBC Morph Comment Smear Path Review David Bodies Sodium (136-148) mmol/L Potassium (3.5-5.1) mmol/L Chloride (98-107) mmol/L Carbon Dioxide (21.0-32.0) mmol/L BUN (7.0-18.0) mg/dL Creatinine (0.8-1.3) mg/dL Est Cr Clr Drug Dosing mL/min Estimated GFR (MDRD) ml/min Glucose (74-106) mg/dL Hemoglobin A1c 9.7 H (4.5 - 6.2) % Calcium (8.5-10.1) mg/dL Total Bilirubin (0.2-1.0) mg/dL AST (15-37) IU/L ALT (14-63) IU/L Alkaline Phosphatase (46-116) U/L Troponin I (0.000-0.056) ng/mL C-Reactive Protein 15.40 H (0.00-0.90) mg/dL Total Protein (6.4-8.2) g/dL Albumin (3.4-5.0) g/dL Globulin (2.6-4.0) g/dL Albumin/Globulin Ratio (0.9-1.6) Urine Color YELLOW Urine Appearance CLEAR Urine pH 6.0 (5.0-8.0) Ur Specific [place] <= 1.005 (1.001-1.035) Urine Protein NEGATIVE (NEGATIVE) mg/dL Urine Glucose (UA) 250 H (NEGATIVE) mg/dL Urine Ketones TRACE H (NEGATIVE) mg/dL Urine Occult Blood TRACE-INTACT H (NEGATIVE) Urine Nitrite NEGATIVE (NEGATIVE) Urine Bilirubin NEGATIVE (NEGATIVE) Urine Urobilinogen 0.2 (<2.0) EU/dL Ur Leukocyte Esterase SMALL H (NEGATIVE) Urine RBC NONE SEEN (0-2/HPF) Urine WBC 3-6 (0-5/HPF) Ur Epithelial Cells RARE (NONE-FEW) Urine Bacteria FEW (NEGATIVE) Urine Mucus LIGHT (NONE-MOD) SARS-CoV-2 RNA (YARON) (NEGATIVE) Bld Parasites Quantity Slides for Path Review Result Diagrams: 09/27/21 16:20 09/27/21 16:20 Sepsis Event Note - Evaluation Sepsis Screening Result: No Definite Risk - Focused Exam Vital Signs: Vital Signs Temp Pulse Resp BP Pulse Ox 09/27/21 21:00 36.5 C 70 22 H 161/66 H 96 09/27/21 20:00 77 22 H 148/73 H 96 09/27/21 19:00 87 22 H 155/131 H 95 09/27/21 18:00 95 22 H 174/77 H 87 L 09/27/21 17:00 36.5 C 93 20 185/99 H 91 L 09/27/21 16:20 38.1 C 100 24 H 185/96 H 77 L - Problem List (1) HTN (hypertension) SNOMED Code(s): 87421787 ICD Code: I10 - ESSENTIAL (PRIMARY) HYPERTENSION Status: Acute Current Vi sit: Yes (2) Hypokalemia SNOMED Code(s): 54792462 ICD Code: E87.6 - HYPOKALEMIA Status: Acute Current Visit: Yes (3) Pneumonia due to COVID-19 virus SNOMED Code(s): 665812566779456609 ICD Code: U07.1 - COVID-19; J12.82 - PNEUMONIA DUE TO CORONAVIRUS DISEASE 2019 Status: Acute Current Visit: Yes (4) Diabetes mellitus SNOMED Code(s): 50773461 ICD Code: E11.9 - TYPE 2 DIABETES MELLITUS WITHOUT COMPLICATIONS Status: Acute Current Visit: No Qualifiers: Diabetes mellitus type: type 2 Diabetes mellitus chcf insulin use: without vermin exterminator use Diabetes mellitus complication status: with hyperglycemia Qualified Code(s): E11.65 - Type 2 diabetes mellitus with hyperglycemia Problem List Initiated/Reviewed/Updated: Yes Orders Last 24hrs: Active Orders 24 hr Category Date Time Status Admission Status [Patient Status] [ADT] Stat ADT 09/27/21 19:47 Active Ambulate [RC] ASDIRECTED Care 09/27/21 21:24 Ordered Antiembolic Devices [RC] PER UNIT ROUTINE Care 09/27/21 21:27 Ordered Cardiac Monitoring [RC] . DIRECTED Care 09/27/21 16:17 Active Oxygen Therapy [RC] PRN Care 09/27/21 21:24 Ordered RT Aerosol Therapy [RC] ASDIRECTED Care 09/27/21 21:29 Ordered RT Post Treatment Assessment [RC] Click to Edit Care 09/27/21 21:32 Ordered RT Pre-Treatment Assessment [RC] Click to Edit Care 09/27/21 21:32 Ordered VTE/DVT Education [RC] PER UNIT ROUTINE Care 09/27/21 21:24 Ordered Vital Signs [RC] Q4H Care 09/27/21 21:24 Ordered [employer] Diet [DIET] Diet 09/27/21 Dinner Ordered CBC WITH AUTO DIFF [HEME] AM Lab 09/28/21 05:11 Ordered CMP [COMPREHENSIVE METABOLIC PN,CMP] [CHEM] AM Lab 09/28/21 05:11 Ordered CULTURE URINE [MREF] Stat Lab 09/27/21 18:45 Received MAGNESIUM [CHEM] AM Lab 09/28/21 05:11 Ordered PHOSPHORUS [CHEM] AM Lab 09/28/21 05:11 Ordered Albuterol/Ipratropium [Combivent Respimat] Med 09/27/21 21:45 Ordered See Dose Instructions INH Q4H Albuterol/Ipratropium [DuoNeb 3.0-0.5 MG/3 ML] Med 09/27/21 21:24 Ordered 3 ml NEB Q4HRRT PRN Enoxaparin [Lovenox] Med 09/27/21 21:30 Ordered 40 mg SUBCUT BID Ondansetron [Zofran] Med 09/27/21 21:24 Ordered 4 mg IVPUSH Q4H PRN Pantoprazole [ProTONIX IV] Med 09/27/21 21:30 Ordered 40 mg IV DAILY Remdesivir 100 mg Med 09/28/21 21:30 Ordered Sodium Chloride 0.9% [Normal Saline AdvBag] 100 ml IV Q24H Sodium Chloride 0.9% [Normal Saline] 1,000 ml Med 09/27/21 16:29 Active IV STAT Sodium Chloride 0.9% [Normal Saline] 1,000 ml Med 09/27/21 17:57 Active IV STAT Sodium Chloride 0.9% [Saline Flush] Med 09/27/21 16:17 Active 10 ml FLUSH ASDIRECTED PRN Sodium Chloride 0.9% [Saline Flush] Med 09/27/21 16:17 Active 2.5 ml FLUSH ASDIRECTED PRN dexAMETHasone Med 09/28/21 09:00 Ordered 6 mg PO DAILY Saline Lock Insert [OM.PC] Stat Oth 09/27/21 16:17 Ordered Sequential Compression Device [OM.PC] Per Unit Routine Oth 09/27/21 21:24 Ordered Resuscitation Status Routine Resus Stat 09/27/21 21:24 Ordered Medication Orders Albuterol/Ipratropium (Albuterol/Ipratropium 3.0-0.5 Mg/3 Ml Neb Soln) 3 ml NEB Q4HRRT PRN PRN Reason: Shortness Of Breath/wheezing Albuterol/Ipratropium (Albuterol/Ipratropium 4 Gm Inhalation [place]) 0 gm INH Q4H KADEN Dexamethasone (Dexamethasone 4 Mg Tab) 6 mg PO DAILY [facility] Enoxaparin Sodium (Enoxaparin 40 Mg/0.4 Ml Syringe) 40 mg SUBCUT BID [facility] Sodium Chloride (Normal Saline) 1,000 mls @ 100 mls/hr IV STAT ONE Stop: 09/28/21 02:28 Last Admin: 09/27/21 16:36 Dose: 100 mls/hr Documented by: KAIDEN Sodium Chloride (Normal Saline) 1,000 mls @ 125 mls/hr IV STAT ONE Stop: 09/28/21 01:56 Last Admin: 09/27/21 18:13 Dose: 125 mls/hr Documented by: KAIDEN Remdesivir 100 mg/ Sodium (Chloride) 100 mls @ 100 mls/hr IV Q24H KADEN Stop: 10/01/21 22:29 Ondansetron HCl (Ondansetron 4 Mg/2 Ml Sdv) 4 mg IVPUSH Q4H PRN PRN Reason: Nausea/Vomiting Pantoprazole Sodium (Pantoprazole 40 Mg Vial) 40 mg IV DAILY KADEN Sodium Chloride (Sodium Chloride 0.9% 10 Ml Syringe) 10 ml FLUSH ASDIRECTED PRN PRN Reason: Keep Vein Open Last Admin: 09/27/21 16:36 Dose: 10 ml Documented by: KAIDEN Sodium Chloride (Sodium Chloride 0.9% 2.5 Ml Syringe) 2.5 ml FLUSH ASDIRECTED PRN PRN Reason: Keep Vein Open Last Admin: 09/27/21 16:37 Dose: 2.5 ml Documented by: KAIDEN Assessment/Plan Comment:: 51-year-old male admitted for acute hypoxic respiratory failure secondary to Covid pneumonia We will start patient on IV remdesivir and oral Decadron Lovenox for DVT prophylaxis Combivent scheduled every 4 hours Duo nebs as needed for shortness of breath We will check CRP, patient currently getting high flow oxygen, will talk to anatoliy ornelas about prospect of starting baricitinib as he is a candidate for the treatment Patient has been diagnosed with diabetes, glycated hemoglobin were checked in the ER which was high We will start patient on sliding scale insulin Diabetic diet Resume antihypertensive meds Encourage proning and incentive spirometry
[2021-09-27] MEDS ORDERED: Non-Formulary Medication 1 Each (Lisinopril [Lisinopril] 40 MG Tablet) PO SCH (21:45)
[2021-09-27] MEDS: amLODIPine 5 MG Tab PO SCH (22:45)
[2021-09-27] MEDS: Albuterol/Ipratropium 4 GM Inhalation Spray INH SCH (22:45)
[2021-09-27] MEDS: Enoxaparin 40 MG/0.4 ML Syringe SUBCUT SCH (22:46)
[2021-09-27] MEDS: Pantoprazole 40 MG Vial IV SCH (22:46)
[2021-09-28] MEDS ORDERED: Glucagon,Human Recombinant 1 MG Vial IM PRN (00:24)
[2021-09-28] MEDS ORDERED: 50% Dextrose in Water 50 ML Syringe IVPUSH PRN (00:24)
[2021-09-28] MEDS: Lisinopril 10 MG Tab PO SCH ×2 (00:41→09:23)
[2021-09-28] MEDS: Albuterol/Ipratropium 4 GM Inhalation Spray INH SCH ×6 (02:54→21:22)
[2021-09-28 07:23] LABS: BLOOD UREA NITROGEN,BUN 11 mg/dL (7.0-18.0); CARBON DIOXIDE,CO2 27.7 mmol/L (21.0-32.0); CHLORIDE,CL 100 mmol/L (98-107); GLUCOSE RANDOM 282 mg/dL (74-106); SODIUM,NA 136 mmol/L (136-148)
[2021-09-28] MEDS: Insulin Aspart 100 Units/ML 3 ML Pen SUBCUT SCH ×3 (08:50→18:36)
[2021-09-28] MEDS: Dexamethasone 4 MG Tab PO SCH (08:52)
[2021-09-28] MEDS: Pantoprazole 40 MG Vial IV SCH (08:53)
[2021-09-28] MEDS: amLODIPine 5 MG Tab PO SCH (08:54)
[2021-09-28] MEDS: Enoxaparin 40 MG/0.4 ML Syringe SUBCUT SCH ×2 (08:54→21:22)
--- NOTE | 2021-09-28 15:29 | PCM.PN ---
- General Info Date of Service: 09/28/21 Admission Dx/Problem (Free Text): Admission Diagnosis/Problem Admission Diagnosis/Problem Hypoxia Subjective Update: Continues to have shortness of breath, patient take shallow breaths any deeper breaths he is uncomfortable Functional Status: Reports: Tolerating Diet, Urinating. Denies: Ambulating - Review of Systems General: Reports: Weakness, Fatigue, Malaise. Denies: Fever Pulmonary: Reports: Shortness of Breath, Cough, Sputum. Denies: Pleuritic Chest Pain, Hemoptysis Cardiovascular: Reports: Dyspnea on Exertion. Denies: Chest Pain, Palpitations, Orthopnea, PND Gastrointestinal: Reports: Decreased Appetite. Denies: Abdominal Pain, Constipation Genitourinary: Denies: Dysuria, Frequency, Burning, Pain, Urgency Musculoskeletal: Denies: Neck Pain, Shoulder Pain, Arm Pain Skin: Denies: Cyanosis, Jaundice, Mottled - Patient Data Vitals - Most Recent: Last Vital Signs Temp 35.5 C L 09/28/21 12:00 Pulse 87 09/28/21 12:00 Resp 24 H 09/28/21 12:00 BP 151/81 H 09/28/21 12:00 Pulse Ox 92 L 09/28/21 13:44 Weight - Most Recent: 96.706 kg I&O - Last 24 Hours: Intake & Output 09/28/21 09/28/21 09/28/21 06:59 14:59 22:59 Intake Total 1540 Output Total 0 Balance 1540 Lab Results Last 24 Hours: Laboratory Results - last 24 hr 09/27/21 09/27/21 09/27/21 Range/Units 16:20 16:20 16:20 WBC 9.29 (4.0-11.0) K/uL RBC 5.20 (4.50-5.90) M/uL Hgb 16.3 (13.0-17.0) g/dL Hct 44.2 (38.0-50.0) % MCV 85.0 (80.0-98.0) fL MCH 31.3 (27.0-32.0) pg MCHC 36.9 (31.0-37.0) g/dL RDW Std Deviation 37.1 (28.0-62.0) fl RDW Coeff of Lala 12 (11.0-15.0) % Plt Count 178 (150-400) K/uL MPV 11.70 (7.40-12.00) fL Neut % (Auto) 77.2 (48.0-80.0) % Lymph % (Auto) 15.6 L (16.0-40.0) % Harding % (Auto) 7.1 (0.0-15.0) % Eos % (Auto) 0.0 (0.0-7.0) % Baso % (Auto) 0.1 (0.0-1.5) % Neut # (Auto) 7.1 H (1.4-5.7) K/uL Lymph # (Auto) 1.4 (0.6-2.4) K/uL Harding # (Auto) 0.7 (0.0-0.8) K/uL Eos # (Auto) 0.0 (0.0-0.7) K/uL Baso # (Auto) 0.0 (0.0-0.1) K/uL Add Manual Diff NURSE OB Neutrophils % (Manual) Cancelled Band Neutrophils % Cancelled Lymphocytes % (Manual) Cancelled Atypical Lymphs % Cancelled Immat Monocytes % (Man) Cancelled Monocytes % (Manual) Cancelled Eosinophils % (Manual) Cancelled Basophils % (Manual) Cancelled Metamyelocytes % Cancelled Myelocytes % Cancelled Promyelocytes % Cancelled Blast Cells % Cancelled Plasma Cell % (Manual) Cancelled Nucleated RBC % 0.0 /100WBC Immature Gran # Cancelled Absolute Neutrophils Cancelled Absolute Seg Neuts Cancelled Band Neutrophils # Cancelled Lymphocytes # (Manual) Cancelled Monocytes # (Manual) Cancelled Eosinophils # (Manual) Cancelled Basophils # (Manual) Cancelled Absolute Metamyelocyte Cancelled Absolute Myelocytes Cancelled Absolute Promyelocytes Cancelled Absolute Plasma Cells Cancelled Nucleated RBCs Cancelled Nucleated RBCs # 0 K/uL Differential Comment Cancelled Pathologist Review Cancelled Bilobed Neuts Cancelled Hypersegmented Neuts Cancelled Variant Lymphocytes Cancelled Atypical Lymphocytes Cancelled Abnormal Lymphocytes Cancelled Plasmacytoid Lymphs Cancelled Reactive Lymphocytes Cancelled Vacuolated Monocytes Cancelled Absolute Blast Cells Cancelled Smudge Cells Cancelled Toxic Granulation Cancelled Dohle Bodies Cancelled Pelger-Huet Cells Cancelled Megakaryocytic Frags Cancelled Kirsten Rods Cancelled WBC Morphology Comment Cancelled Platelet Estimate Cancelled Hypogranular Platelets Cancelled Platelet Agranulation Cancelled Clumped Platelets Cancelled Giant Platelets Cancelled Platelet Satelliting Cancelled Bizarre Platelets Cancelled Plt Morphology Comment Cancelled Polychromasia Cancelled Hypochromasia Cancelled Poikilocytosis Cancelled Basophilic Stippling Cancelled Anisocytosis Cancelled Microcytosis Cancelled Macrocytosis Cancelled Spherocytes Cancelled Micro Spherocytes Cancelled Pappenheimer Bodies Cancelled Siderocytes Cancelled Sickle Cells Cancelled Target Cells Cancelled Tear Drop Cells Cancelled Ovalocytes Cancelled Stomatocytes Cancelled Helmet Cells Cancelled [place] Bodies Cancelled [place] Rings Cancelled Jacklyn Cells Cancelled Elliptocytes Cancelled Acanthocytes (Spur) Cancelled Rouleaux Cancelled Hemoglobin C Crystals Cancelled Schistocytes Cancelled RBC Morph Comment Cancelled Smear Path Review Cancelled Dvaid Bodies Cancelled Sodium 128 L (136-148) mmol/L Potassium 3.2 L (3.5-5.1) mmol/L Chloride 90 L (98-107) mmol/L Carbon Dioxide 29.1 (21.0-32.0) mmol/L BUN 8 (7.0-18.0) mg/dL Creatinine 0.9 (0.8-1.3) mg/dL Est Cr Clr Drug Dosing 92.83 mL/min Estimated GFR (MDRD) > 60.0 ml/min Glucose 201 H (74-106) mg/dL POC Glucose (70-99) mg/dL Hemoglobin A1c (4.5 - 6.2) % Calcium 8.4 L (8.5-10.1) mg/dL Phosphorus (2.6-4.7) mg/dL Magnesium (1.8-2.4) mg/dL Total Bilirubin 0.9 (0.2-1.0) mg/dL AST 67 H (15-37) IU/L ALT 73 H (14-63) IU/L Alkaline Phosphatase 86 (46-116) U/L Troponin I < 0.050 (0.000-0.056) ng/mL C-Reactive Protein (0.00-0.90) mg/dL Total Protein 8.1 (6.4-8.2) g/dL Albumin 3.1 L (3.4-5.0) g/dL Globulin 5.0 H (2.6-4.0) g/dL Albumin/Globulin Ratio 0.6 L (0.9-1.6) Urine Color Urine Appearance Urine pH (5.0-8.0) Ur Specific [place] (1.001-1.035) Urine Protein (NEGATIVE) mg/dL Urine Glucose (UA) (NEGATIVE) mg/dL Urine Ketones (NEGATIVE) mg/dL Urine Occult Blood (NEGATIVE) Urine Nitrite (NEGATIVE) Urine Bilirubin (NEGATIVE) Urine Urobilinogen (<2.0) EU/dL Ur Leukocyte Esterase (NEGATIVE) Urine RBC (0-2/HPF) Urine WBC (0-5/HPF) Ur Epithelial Cells (NONE-FEW) Urine Bacteria (NEGATIVE) Urine Mucus (NONE-MOD) SARS-CoV-2 RNA (YARON) POSITIVE H (NEGATIVE) Bld Parasites Quantity Cancelled Slides for Path Review Cancelled 09/27/21 09/27/21 09/27/21 Range/Units 16:20 16:20 18:45 WBC (4.0-11.0) K/uL RBC (4.50-5.90) M/uL Hgb (13.0-17.0) g/dL Hct (38.0-50.0) % MCV (80.0-98.0) fL MCH (27.0-32.0) pg MCHC (31.0-37.0) g/dL RDW Std Deviation (28.0-62.0) fl RDW Coeff of Lala (11.0-15.0) % Plt Count (150-400) K/uL MPV (7.40-12.00) fL Neut % (Auto) (48.0-80.0) % Lymph % (Auto) (16.0-40.0) % Harding % (Auto) (0.0-15.0) % Eos % (Auto) (0.0-7.0) % Baso % (Auto) (0.0-1.5) % Neut # (Auto) (1.4-5.7) K/uL Lymph # (Auto) (0.6-2.4) K/uL Harding # (Auto) (0.0-0.8) K/uL Eos # (Auto) (0.0-0.7) K/uL Baso # (Auto) (0.0-0.1) K/uL Add Manual Diff Neutrophils % (Manual) Band Neutrophils % Lymphocytes % (Manual) Atypical Lymphs % Immat Monocytes % (Man) Monocytes % (Manual) Eosinophils % (Manual) Basophils % (Manual) Metamyelocytes % Myelocytes % Promyelocytes % Blast Cells % Plasma Cell % (Manual) Nucleated RBC % /100WBC Immature Gran # Absolute Neutrophils Absolute Seg Neuts Band Neutrophils # Lymphocytes # (Manual) Monocytes # (Manual) Eosinophils # (Manual) Basophils # (Manual) Absolute Metamyelocyte Absolute Myelocytes Absolute Promyelocytes Absolute Plasma Cells Nucleated RBCs Nucleated RBCs # K/uL Differential Comment Pathologist Review Bilobed Neuts Hypersegmented Neuts Variant Lymphocytes Atypical Lymphocytes Abnormal Lymphocytes Plasmacytoid Lymphs Reactive Lymphocytes Vacuolated Monocytes Absolute Blast Cells Smudge Cells Toxic Granulation Dohle Bodies Pelger-Huet Cells Megakaryocytic Frags Kirsten Rods WBC Morphology Comment Platelet Estimate Hypogranular Platelets Platelet Agranulation Clumped Platelets Giant Platelets Platelet Satelliting Bizarre Platelets Plt Morphology Comment Polychromasia Hypochromasia Poikilocytosis Basophilic Stippling Anisocytosis Microcytosis Macrocytosis Spherocytes Micro Spherocytes Pappenheimer Bodies Siderocytes Sickle Cells Target Cells Tear Drop Cells Ovalocytes Stomatocytes Helmet Cells [place] Bodies [place] Rings Jacklny Cells Elliptocytes Acanthocytes (Spur) Rouleaux Hemoglobin C Crystals Schistocytes RBC Morph Comment Smear Path Review David Bodies Sodium (136-148) mmol/L Potassium (3.5-5.1) mmol/L Chloride (98-107) mmol/L Carbon Dioxide (21.0-32.0) mmol/L BUN (7.0-18.0) mg/dL Creatinine (0.8-1.3) mg/dL Est Cr Clr Drug Dosing mL/min Estimated GFR (MDRD) ml/min Glucose (74-106) mg/dL POC Glucose (70-99) mg/dL Hemoglobin A1c 9.7 H (4.5 - 6.2) % Calcium (8.5-10.1) mg/dL Phosphorus (2.6-4.7) mg/dL Magnesium (1.8-2.4) mg/dL Total Bilirubin (0.2-1.0) mg/dL AST (15-37) IU/L ALT (14-63) IU/L Alkaline Phosphatase (46-116) U/L Troponin I (0.000-0.056) ng/mL C-Reactive Protein 15.40 H (0.00-0.90) mg/dL Total Protein (6.4-8.2) g/dL Albumin (3.4-5.0) g/dL Globulin (2.6-4.0) g/dL Albumin/Globulin Ratio (0.9-1.6) Urine Color YELLOW Urine Appearance CLEAR Urine pH 6.0 (5.0-8.0) Ur Specific [place] <= 1.005 (1.001-1.035) Urine Protein NEGATIVE (NEGATIVE) mg/dL Urine Glucose (UA) 250 H (NEGATIVE) mg/dL Urine Ketones TRACE H (NEGATIVE) mg/dL Urine Occult Blood TRACE-INTACT H (NEGATIVE) Urine Nitrite NEGATIVE (NEGATIVE) Urine Bilirubin NEGATIVE (NEGATIVE) Urine Urobilinogen 0.2 (<2.0) EU/dL Ur Leukocyte Esterase SMALL H (NEGATIVE) Urine RBC NONE SEEN (0-2/HPF) Urine WBC 3-6 (0-5/HPF) Ur Epithelial Cells RARE (NONE-FEW) Urine Bacteria FEW (NEGATIVE) Urine Mucus LIGHT (NONE-MOD) SARS-CoV-2 RNA (YARON) (NEGATIVE) Bld Parasites Quantity Slides for Path Review 09/27/21 09/28/21 09/28/21 Range/Units 22:08 06:15 06:15 WBC 9.51 (4.0-11.0) K/uL RBC 5.33 (4.50-5.90) M/uL Hgb 16.7 (13.0-17.0) g/dL Hct 46.0 (38.0-50.0) % MCV 86.3 (80.0-98.0) fL MCH 31.3 (27.0-32.0) pg MCHC 36.3 (31.0-37.0) g/dL RDW Std Deviation 39.8 (28.0-62.0) fl RDW Coeff of Lala 13 (11.0-15.0) % Plt Count 184 (150-400) K/uL MPV 12.00 (7.40-12.00) fL Neut % (Auto) 80.1 H (48.0-80.0) % Lymph % (Auto) 13.7 L (16.0-40.0) % Harding % (Auto) 6.0 (0.0-15.0) % Eos % (Auto) 0.0 (0.0-7.0) % Baso % (Auto) 0.2 (0.0-1.5) % Neut # (Auto) 7.6 H (1.4-5.7) K/uL Lymph # (Auto) 1.3 (0.6-2.4) K/uL Harding # (Auto) 0.6 (0.0-0.8) K/uL Eos # (Auto) 0.0 (0.0-0.7) K/uL Baso # (Auto) 0.0 (0.0-0.1) K/uL Add Manual Diff Neutrophils % (Manual) Band Neutrophils % Lymphocytes % (Manual) Atypical Lymphs % Immat Monocytes % (Man) Monocytes % (Manual) Eosinophils % (Manual) Basophils % (Manual) Metamyelocytes % Myelocytes % Promyelocytes % Blast Cells % Plasma Cell % (Manual) Nucleated RBC % 0.0 /100WBC Immature Gran # Absolute Neutrophils Absolute Seg Neuts Band Neutrophils # Lymphocytes # (Manual) Monocytes # (Manual) Eosinophils # (Manual) Basophils # (Manual) Absolute Metamyelocyte Absolute Myelocytes Absolute Promyelocytes Absolute Plasma Cells Nucleated RBCs Nucleated RBCs # 0 K/uL Differential Comment Pathologist Review Bilobed Neuts Hypersegmented Neuts Variant Lymphocytes Atypical Lymphocytes Abnormal Lymphocytes Plasmacytoid Lymphs Reactive Lymphocytes Vacuolated Monocytes Absolute Blast Cells Smudge Cells Toxic Granulation Dohle Bodies Pelger-Huet Cells Megakaryocytic Frags Kirsten Rods WBC Morphology Comment Platelet Estimate Hypogranular Platelets Platelet Agranulation Clumped Platelets Giant Platelets Platelet Satelliting Bizarre Platelets Plt Morphology Comment Polychromasia Hypochromasia Poikilocytosis Basophilic Stippling Anisocytosis Microcytosis Macrocytosis Spherocytes Micro Spherocytes Pappenheimer Bodies Siderocytes Sickle Cells Target Cells Tear Drop Cells Ovalocytes Stomatocytes Helmet Cells [place] Bodies [place] Rings [place] Cells Elliptocytes Acanthocytes (Spur) Rouleaux Hemoglobin C Crystals Schistocytes RBC Morph Comment Smear Path Review David Bodies Sodium 136 (136-148) mmol/L Potassium 4.0 (3.5-5.1) mmol/L Chloride 100 (98-107) mmol/L Carbon Dioxide 27.7 (21.0-32.0) mmol/L BUN 11 (7.0-18.0) mg/dL Creatinine 0.9 (0.8-1.3) mg/dL Est Cr Clr Drug Dosing 92.83 mL/min Estimated GFR (MDRD) > 60.0 ml/min Glucose 282 H (74-106) mg/dL POC Glucose 292 H (70-99) mg/dL Hemoglobin A1c (4.5 - 6.2) % Calcium 8.0 L (8.5-10.1) mg/dL Phosphorus 2.7 (2.6-4.7) mg/dL Magnesium 2.4 (1.8-2.4) mg/dL Total Bilirubin 0.7 (0.2-1.0) mg/dL AST 58 H (15-37) IU/L ALT 68 H (14-63) IU/L Alkaline Phosphatase 86 (46-116) U/L Troponin I (0.000-0.056) ng/mL C-Reactive Protein (0.00-0.90) mg/dL Total Protein 7.4 (6.4-8.2) g/dL Albumin 2.4 L (3.4-5.0) g/dL Globulin 5.0 H (2.6-4.0) g/dL Albumin/Globulin Ratio 0.5 L (0.9-1.6) Urine Color Urine Appearance Urine pH (5.0-8.0) Ur Specific [place] (1.001-1.035) Urine Protein (NEGATIVE) mg/dL Urine Glucose (UA) (NEGATIVE) mg/dL Urine Ketones (NEGATIVE) mg/dL Urine Occult Blood (NEGATIVE) Urine Nitrite (NEGATIVE) Urine Bilirubin (NEGATIVE) Urine Urobilinogen (<2.0) EU/dL Ur Leukocyte Esterase (NEGATIVE) Urine RBC (0-2/HPF) Urine WBC (0-5/HPF) Ur Epithelial Cells (NONE-FEW) Urine Bacteria (NEGATIVE) Urine Mucus (NONE-MOD) SARS-CoV-2 RNA (YARON) (NEGATIVE) Bld Parasites Quantity Slides for Path Review 09/28/21 09/28/21 Range/Units 06:46 11:49 WBC (4.0-11.0) K/uL RBC (4.50-5.90) M/uL Hgb (13.0-17.0) g/dL Hct (38.0-50.0) % MCV (80.0-98.0) fL MCH (27.0-32.0) pg MCHC (31.0-37.0) g/dL RDW Std Deviation (28.0-62.0) fl RDW Coeff of Lala (11.0-15.0) % Plt Count (150-400) K/uL MPV (7.40-12.00) fL Neut % (Auto) (48.0-80.0) % Lymph % (Auto) (16.0-40.0) % Hard[place] % (Auto) (0.0-15.0) % Eos % (Auto) (0.0-7.0) % Baso % (Auto) (0.0-1.5) % Neut # (Auto) (1.4-5.7) K/uL Lymph # (Auto) (0.6-2.4) K/uL [place]ing # (Auto) (0.0-0.8) K/uL Eos # (Auto) (0.0-0.7) K/uL Baso # (Auto) (0.0-0.1) K/uL Add Manual Diff Neutrophils % (Manual) Band Neutrophils % Lymphocytes % (Manual) Atypical Lymphs % Immat Monocytes % (Man) Monocytes % (Manual) Eosinophils % (Manual) Basophils % (Manual) Metamyelocytes % Myelocytes % Promyelocytes % Blast Cells % Plasma Cell % (Manual) Nucleated RBC % /100WBC Immature Gran # Absolute Neutrophils Absolute Seg Neuts Band Neutrophils # Lymphocytes # (Manual) Monocytes # (Manual) Eosinophils # (Manual) Basophils # (Manual) Absolute Metamyelocyte Absolute Myelocytes Absolute Promyelocytes Absolute Plasma Cells Nucleated RBCs Nucleated RBCs # K/uL Differential Comment Pathologist Review Bilobed Neuts Hypersegmented Neuts Variant Lymphocytes Atypical Lymphocytes Abnormal Lymphocytes Plasmacytoid Lymphs Reactive Lymphocytes Vacuolated Monocytes Absolute Blast Cells Smudge Cells Toxic Granulation Dohle Bodies Pelger-Huet Cells Megakaryocytic Frags Kirsten Rods WBC Morphology Comment Platelet Estimate Hypogranular Platelets Platelet Agranulation Clumped Platelets Giant Platelets Platelet Satelliting Bizarre Platelets Plt Morphology Comment Polychromasia Hypochromasia Poikilocytosis Basophilic Stippling Anisocytosis Microcytosis Macrocytosis Spherocytes Micro Spherocytes Pappenheimer Bodies Siderocytes Sickle Cells Target Cells Tear Drop Cells Ovalocytes Stomatocytes Helmet Cells [place] Bodies [place] Rings [place] Cells Elliptocytes Acanthocytes (Spur) Rouleaux Hemoglobin C Crystals Schistocytes RBC Morph Comment Smear Path Review David Bodies Sodium (136-148) mmol/L Potassium (3.5-5.1) mmol/L Chloride (98-107) mmol/L Carbon Dioxide (21.0-32.0) mmol/L BUN (7.0-18.0) mg/dL Creatinine (0.8-1.3) mg/dL Est Cr Clr Drug Dosing mL/min Estimated GFR (MDRD) ml/min Glucose (74-106) mg/dL POC Glucose 251 H 264 H (70-99) mg/dL Hemoglobin A1c (4.5 - 6.2) % Calcium (8.5-10.1) mg/dL Phosphorus (2.6-4.7) mg/dL Magnesium (1.8-2.4) mg/dL Total Bilirubin (0.2-1.0) mg/dL AST (15-37) IU/L ALT (14-63) IU/L Alkaline Phosphatase (46-116) U/L Troponin I (0.000-0.056) ng/mL C-Reactive Protein (0.00-0.90) mg/dL Total Protein (6.4-8.2) g/dL Albumin (3.4-5.0) g/dL Globulin (2.6-4.0) g/dL Albumin/Globulin Ratio (0.9-1.6) Urine Color Urine Appearance Urine pH (5.0-8.0) Ur Specific [place] (1.001-1.035) Urine Protein (NEGATIVE) mg/dL Urine Glucose (UA) (NEGATIVE) mg/dL Urine Ketones (NEGATIVE) mg/dL Urine Occult Blood (NEGATIVE) Urine Nitrite (NEGATIVE) Urine Bilirubin (NEGATIVE) Urine Urobilinogen (<2.0) EU/dL Ur Leukocyte Esterase (NEGATIVE) Urine RBC (0-2/HPF) Urine WBC (0-5/HPF) Ur Epithelial Cells (NONE-FEW) Urine Bacteria (NEGATIVE) Urine Mucus (NONE-MOD) SARS-CoV-2 RNA (YARON) (NEGATIVE) Bld Parasites Quantity Slides for Path Review Med Orders - Current: Current Medications Albuterol/Ipratropium (Albuterol/Ipratropium 3.0-0.5 Mg/3 Ml Neb Soln) 3 ml NEB Q4HRRT PRN PRN Reason: Shortness Of Breath/wheezing Albuterol/Ipratropium (Albuterol/Ipratropium 4 Gm Inhalation [place]) 0 gm INH Q4H [facility] Last Admin: 09/28/21 12:56 Dose: 1 puff Documented by: Amlodipine Besylate (Amlodipine 5 Mg Tab) 10 mg PO DAILY [facility] Last Admin: 09/28/21 08:54 Dose: 10 mg Documented by: Baricitinib (Baricitinib 2 Mg Tab) 4 mg PO DAILY [facility] Last Admin: 09/28/21 08:52 Dose: 4 mg Documented by: Dexamethasone (Dexamethasone 4 Mg Tab) 6 mg PO DAILY [facility] Last Admin: 09/28/21 08:52 Dose: 6 mg Documented by: Dextrose/Water (50% Dextrose In Water 50 Ml Syringe) 50 ml IVPUSH ASDIRECTED PRN PRN Reason: Hypoglycemia Enoxaparin Sodium (Enoxaparin 40 Mg/0.4 Ml Syringe) 40 mg SUBCUT BID [facility] Last Admin: 09/28/21 08:54 Dose: 40 mg Documented by: Glucagon (Glucagon,Human Recombinant 1 Mg Vial) 1 mg IM ASDIRECTED PRN PRN Reason: Hypoglycemia Remdesivir 100 mg/ Sodium (Chloride) 100 mls @ 100 mls/hr IV Q24H [facility] Stop: 10/01/21 22:29 Insulin Aspart (Insulin Aspart 100 Units/Ml 3 Ml Pen) 0 unit SUBCUT TIDAC [facility]; Protocol Last Admin: 09/28/21 13:41 Dose: 6 unit Documented by: Lisinopril (Lisinopril 10 Mg Tab) 40 mg PO DAILY [facility] Last Admin: 09/28/21 09:23 Dose: 40 mg Documented by: Ondansetron HCl (Ondansetron 4 Mg/2 Ml Sdv) 4 mg IVPUSH Q4H PRN PRN Reason: Nausea/Vomiting Pantoprazole Sodium (Pantoprazole 40 Mg Vial) 40 mg IV DAILY [facility] Last Admin: 09/28/21 08:53 Dose: 40 mg Documented by: Sodium Chloride (Sodium Chloride 0.9% 10 Ml Syringe) 10 ml FLUSH ASDIRECTED PRN PRN Reason: Keep Vein Open Last Admin: 09/27/21 16:36 Dose: 10 ml Documented by: Sodium Chloride (Sodium Chloride 0.9% 2.5 Ml Syringe) 2.5 ml FLUSH ASDIRECTED PRN PRN Reason: Keep Vein Open Last Admin: 09/27/21 16:37 Dose: 2.5 ml Documented by: Discontinued Medications Acetaminophen (Acetaminophen 500 Mg Tab) 1,000 mg PO ONETIME ONE Stop: 09/27/21 17:58 Last Admin: 09/27/21 18:13 Dose: 1,000 mg Documented by: Aspirin (Aspirin 81 Mg Tab.Chew) 324 mg PO ONETIME ONE Stop: 09/27/21 16:18 Last Admin: 09/27/21 16:37 Dose: 324 mg Documented by: Dexamethasone (Dexamethasone 10 Mg/Ml Sdv) 6 mg IVPUSH ONETIME ONE Stop: 09/27/21 16:30 Last Admin: 09/27/21 16:36 Dose: 6 mg Documented by: Sodium Chloride (Normal Saline) 1,000 mls @ 100 mls/hr IV STAT ONE Stop: 09/28/21 02:28 Last Admin: 09/27/21 16:36 Dose: 100 mls/hr Documented by: Sodium Chloride (Normal Saline) 1,000 mls @ 125 mls/hr IV STAT ONE Stop: 09/28/21 01:56 Last Admin: 09/27/21 18:13 Dose: 125 mls/hr Documented by: Remdesivir 200 mg/ Sodium (Chloride) 250 mls @ 250 mls/hr IV ONETIME ONE Stop: 09/27/21 17:59 Last Admin: 09/27/21 19:04 Dose: 250 mls/hr Documented by: Iopamidol (Iopamidol 755 Mg/Ml 500 Ml Multipack Bottle) 100 ml IVPUSH ONETIME STA Stop: 09/27/21 18:54 Last Admin: 09/27/21 18:53 Dose: 100 ml Documented by: Ketorolac Tromethamine (Ketorolac 30 Mg/Ml Sdv) 30 mg IVPUSH ONETIME ONE Stop: 09/27/21 17:58 Last Admin: 09/27/21 18:14 Dose: 30 mg Documented by: Non-Formulary Medication (Lisinopril [Lisinopril]) 40 mg PO DAILY [facility] Last Admin: 09/28/21 00:35 Dose: Not Given Documented by: Potassium Chloride (Potassium Chloride 20 Meq Tab.Er) 40 meq PO ONETIME ONE Stop: 09/27/21 17:59 Last Admin: 09/27/21 18:14 Dose: 40 meq Documented by: - Exam Quality Assessment: Supplemental Oxygen General: Alert, Oriented Lungs: Decreased Breath Sounds, Crackles, Rales. No: Clear to Auscultation, Normal Respiratory Effort Cardiovascular: Regular Rate, Regular Rhythm GI/Abdominal Exam: Normal Bowel Sounds, Soft, Non-Tender Extremities: Normal Inspection, Normal Range of Motion - Patient Data Lab Results Last 24 hrs: Laboratory Results - last 24 hr 09/27/21 09/27/21 09/27/21 Range/Units 16:20 16:20 16:20 WBC 9.29 (4.0-11.0) K/uL RBC 5.20 (4.50-5.90) M/uL Hgb 16.3 (13.0-17.0) g/dL Hct 44.2 (38.0-50.0) % MCV 85.0 (80.0-98.0) fL MCH 31.3 (27.0-32.0) pg MCHC 36.9 (31.0-37.0) g/dL RDW Std Deviation 37.1 (28.0-62.0) fl RDW Coeff of Lala 12 (11.0-15.0) % Plt Count 178 (150-400) K/uL MPV 11.70 (7.40-12.00) fL Neut % (Auto) 77.2 (48.0-80.0) % Lymph % (Auto) 15.6 L (16.0-40.0) % [place] % (Auto) 7.1 (0.0-15.0) % Eos % (Auto) 0.0 (0.0-7.0) % Baso % (Auto) 0.1 (0.0-1.5) % Neut # (Auto) 7.1 H (1.4-5.7) K/uL Lymph # (Auto) 1.4 (0.6-2.4) K/uL [place] # (Auto) 0.7 (0.0-0.8) K/uL Eos # (Auto) 0.0 (0.0-0.7) K/uL Baso # (Auto) 0.0 (0.0-0.1) K/uL Add Manual Diff NURSE OB Neutrophils % (Manual) Cancelled Band Neutrophils % Cancelled Lymphocytes % (Manual) Cancelled Atypical Lymphs % Cancelled Immat Monocytes % (Man) Cancelled Monocytes % (Manual) Cancelled Eosinophils % (Manual) Cancelled Basophils % (Manual) Cancelled Metamyelocytes % Cancelled Myelocytes % Cancelled Promyelocytes % Cancelled Blast Cells % Cancelled Plasma Cell % (Manual) Cancelled Nucleated RBC % 0.0 /100WBC Immature Gran # Cancelled Absolute Neutrophils Cancelled Absolute Seg Neuts Cancelled Band Neutrophils # Cancelled Lymphocytes # (Manual) Cancelled Monocytes # (Manual) Cancelled Eosinophils # (Manual) Cancelled Basophils # (Manual) Cancelled Absolute Metamyelocyte Cancelled Absolute Myelocytes Cancelled Absolute Promyelocytes Cancelled Absolute Plasma Cells Cancelled Nucleated RBCs Cancelled Nucleated RBCs # 0 K/uL Differential Comment Cancelled Pathologist Review Cancelled Bilobed Neuts Cancelled Hypersegmented Neuts Cancelled Variant Lymphocytes Cancelled Atypical Lymphocytes Cancelled Abnormal Lymphocytes Cancelled Plasmacytoid Lymphs Cancelled Reactive Lymphocytes Cancelled Vacuolated Monocytes Cancelled Absolute Blast Cells Cancelled Smudge Cells Cancelled Toxic Granulation Cancelled Dohle Bodies Cancelled Pelger-Huet Cells Cancelled Megakaryocytic Frags Cancelled Kirsten Rods Cancelled WBC Morphology Comment Cancelled Platelet Estimate Cancelled Hypogranular Platelets Cancelled Platelet Agranulation Cancelled Clumped Platelets Cancelled Giant Platelets Cancelled Platelet Satelliting Cancelled Bizarre Platelets Cancelled Plt Morphology Comment Cancelled Polychromasia Cancelled Hypochromasia Cancelled Poikilocytosis Cancelled Basophilic Stippling Cancelled Anisocytosis Cancelled Microcytosis Cancelled Macrocytosis Cancelled Spherocytes Cancelled Micro Spherocytes Cancelled Pappenheimer Bodies Cancelled Siderocytes Cancelled Sickle Cells Cancelled Target Cells Cancelled Tear Drop Cells Cancelled Ovalocytes Cancelled Stomatocytes Cancelled Helmet Cells Cancelled [place] Bodies Cancelled [place] Rings Cancelled Jacklyn Cells Cancelled Elliptocytes Cancelled Acanthocytes (Spur) Cancelled Rouleaux Cancelled Hemoglobin C Crystals Cancelled Schistocytes Cancelled RBC Morph Comment Cancelled Smear Path Review Cancelled David Bodies Cancelled Sodium 128 L (136-148) mmol/L Potassium 3.2 L (3.5-5.1) mmol/L Chloride 90 L (98-107) mmol/L Carbon Dioxide 29.1 (21.0-32.0) mmol/L BUN 8 (7.0-18.0) mg/dL Creatinine 0.9 (0.8-1.3) mg/dL Est Cr Clr Drug Dosing 92.83 mL/min Estimated GFR (MDRD) > 60.0 ml/min Glucose 201 H (74-106) mg/dL POC Glucose (70-99) mg/dL Hemoglobin A1c (4.5 - 6.2) % Calcium 8.4 L (8.5-10.1) mg/dL Phosphorus (2.6-4.7) mg/dL Magnesium (1.8-2.4) mg/dL Total Bilirubin 0.9 (0.2-1.0) mg/dL AST 67 H (15-37) IU/L ALT 73 H (14-63) IU/L Alkaline Phosphatase 86 (46-116) U/L Troponin I < 0.050 (0.000-0.056) ng/mL C-Reactive Protein (0.00-0.90) mg/dL Total Protein 8.1 (6.4-8.2) g/dL Albumin 3.1 L (3.4-5.0) g/dL Globulin 5.0 H (2.6-4.0) g/dL Albumin/Globulin Ratio 0.6 L (0.9-1.6) Urine Color Urine Appearance Urine pH (5.0-8.0) Ur Specific [place] (1.001-1.035) Urine Protein (NEGATIVE) mg/dL Urine Glucose (UA) (NEGATIVE) mg/dL Urine Ketones (NEGATIVE) mg/dL Urine Occult Blood (NEGATIVE) Urine Nitrite (NEGATIVE) Urine Bilirubin (NEGATIVE) Urine Urobilinogen (<2.0) EU/dL Ur Leukocyte Esterase (NEGATIVE) Urine RBC (0-2/HPF) Urine WBC (0-5/HPF) Ur Epithelial Cells (NONE-FEW) Urine Bacteria (NEGATIVE) Urine Mucus (NONE-MOD) SARS-CoV-2 RNA (YARON) POSITIVE H (NEGATIVE) Bld Parasites Quantity Cancelled Slides for Path Review Cancelled 09/27/21 09/27/21 09/27/21 Range/Units 16:20 16:20 18:45 WBC (4.0-11.0) K/uL RBC (4.50-5.90) M/uL Hgb (13.0-17.0) g/dL Hct (38.0-50.0) % MCV (80.0-98.0) fL MCH (27.0-32.0) pg MCHC (31.0-37.0) g/dL RDW Std Deviation (28.0-62.0) fl RDW Coeff of Lala (11.0-15.0) % Plt Count (150-400) K/uL MPV (7.40-12.00) fL Neut % (Auto) (48.0-80.0) % Lymph % (Auto) (16.0-40.0) % Harding % (Auto) (0.0-15.0) % Eos % (Auto) (0.0-7.0) % Baso % (Auto) (0.0-1.5) % Neut # (Auto) (1.4-5.7) K/uL Lymph # (Auto) (0.6-2.4) K/uL Harding # (Auto) (0.0-0.8) K/uL Eos # (Auto) (0.0-0.7) K/uL Baso # (Auto) (0.0-0.1) K/uL Add Manual Diff Neutrophils % (Manual) Band Neutrophils % Lymphocytes % (Manual) Atypical Lymphs % Immat Monocytes % (Man) Monocytes % (Manual) Eosinophils % (Manual) Basophils % (Manual) Metamyelocytes % Myelocytes % Promyelocytes % Blast Cells % Plasma Cell % (Manual) Nucleated RBC % /100WBC Immature Gran # Absolute Neutrophils Absolute Seg Neuts Band Neutrophils # Lymphocytes # (Manual) Monocytes # (Manual) Eosinophils # (Manual) Basophils # (Manual) Absolute Metamyelocyte Absolute Myelocytes Absolute Promyelocytes Absolute Plasma Cells Nucleated RBCs Nucleated RBCs # K/uL Differential Comment Pathologist Review Bilobed Neuts Hypersegmented Neuts Variant Lymphocytes Atypical Lymphocytes Abnormal Lymphocytes Plasmacytoid Lymphs Reactive Lymphocytes Vacuolated Monocytes Absolute Blast Cells Smudge Cells Toxic Granulation Dohle Bodies Pelger-Huet Cells Megakaryocytic Frags Kristen Rods WBC Morphology Comment Platelet Estimate Hypogranular Platelets Platelet Agranulation Clumped Platelets Giant Platelets Platelet Satelliting Bizarre Platelets Plt Morphology Comment Polychromasia Hypochromasia Poikilocytosis Basophilic Stippling Anisocytosis Microcytosis Macrocytosis Spherocytes Micro Spherocytes Pappenheimer Bodies Siderocytes Sickle Cells Target Cells Tear Drop Cells Ovalocytes Stomatocytes Helmet Cells [place] Bodies [place] Rings Jacklyn Cells Elliptocytes Acanthocytes (Spur) Rouleaux Hemoglobin C Crystals Schistocytes RBC Morph Comment Smear Path Review David Bodies Sodium (136-148) mmol/L Potassium (3.5-5.1) mmol/L Chloride (98-107) mmol/L Carbon Dioxide (21.0-32.0) mmol/L BUN (7.0-18.0) mg/dL Creatinine (0.8-1.3) mg/dL Est Cr Clr Drug Dosing mL/min Estimated GFR (MDRD) ml/min Glucose (74-106) mg/dL POC Glucose (70-99) mg/dL Hemoglobin A1c 9.7 H (4.5 - 6.2) % Calcium (8.5-10.1) mg/dL Phosphorus (2.6-4.7) mg/dL Magnesium (1.8-2.4) mg/dL Total Bilirubin (0.2-1.0) mg/dL AST (15-37) IU/L ALT (14-63) IU/L Alkaline Phosphatase (46-116) U/L Troponin I (0.000-0.056) ng/mL C-Reactive Protein 15.40 H (0.00-0.90) mg/dL Total Protein (6.4-8.2) g/dL Albumin (3.4-5.0) g/dL Globulin (2.6-4.0) g/dL Albumin/Globulin Ratio (0.9-1.6) Urine Color YELLOW Urine Appearance CLEAR Urine pH 6.0 (5.0-8.0) Ur Specific [place] <= 1.005 (1.001-1.035) Urine Protein NEGATIVE (NEGATIVE) mg/dL Urine Glucose (UA) 250 H (NEGATIVE) mg/dL Urine Ketones TRACE H (NEGATIVE) mg/dL Urine Occult Blood TRACE-INTACT H (NEGATIVE) Urine Nitrite NEGATIVE (NEGATIVE) Urine Bilirubin NEGATIVE (NEGATIVE) Urine Urobilinogen 0.2 (<2.0) EU/dL Ur Leukocyte Esterase SMALL H (NEGATIVE) Urine RBC NONE SEEN (0-2/HPF) Urine WBC 3-6 (0-5/HPF) Ur Epithelial Cells RARE (NONE-FEW) Urine Bacteria FEW (NEGATIVE) Urine Mucus LIGHT (NONE-MOD) SARS-CoV-2 RNA (YARON) (NEGATIVE) Bld Parasites Quantity Slides for Path Review 09/27/21 09/28/21 09/28/21 Range/Units 22:08 06:15 06:15 WBC 9.51 (4.0-11.0) K/uL RBC 5.33 (4.50-5.90) M/uL Hgb 16.7 (13.0-17.0) g/dL Hct 46.0 (38.0-50.0) % MCV 86.3 (80.0-98.0) fL MCH 31.3 (27.0-32.0) pg MCHC 36.3 (31.0-37.0) g/dL RDW Std Deviation 39.8 (28.0-62.0) fl RDW Coeff of Lala 13 (11.0-15.0) % Plt Count 184 (150-400) K/uL MPV 12.00 (7.40-12.00) fL Neut % (Auto) 80.1 H (48.0-80.0) % Lymph % (Auto) 13.7 L (16.0-40.0) % Harding % (Auto) 6.0 (0.0-15.0) % Eos % (Auto) 0.0 (0.0-7.0) % Baso % (Auto) 0.2 (0.0-1.5) % Neut # (Auto) 7.6 H (1.4-5.7) K/uL Lymph # (Auto) 1.3 (0.6-2.4) K/uL [place]ing # (Auto) 0.6 (0.0-0.8) K/uL Eos # (Auto) 0.0 (0.0-0.7) K/uL Baso # (Auto) 0.0 (0.0-0.1) K/uL Add Manual Diff Neutrophils % (Manual) Band Neutrophils % Lymphocytes % (Manual) Atypical Lymphs % Immat Monocytes % (Man) Monocytes % (Manual) Eosinophils % (Manual) Basophils % (Manual) Metamyelocytes % Myelocytes % Promyelocytes % Blast Cells % Plasma Cell % (Manual) Nucleated RBC % 0.0 /100WBC Immature Gran # Absolute Neutrophils Absolute Seg Neuts Band Neutrophils # Lymphocytes # (Manual) Monocytes # (Manual) Eosinophils # (Manual) Basophils # (Manual) Absolute Metamyelocyte Absolute Myelocytes Absolute Promyelocytes Absolute Plasma Cells Nucleated RBCs Nucleated RBCs # 0 K/uL Differential Comment Pathologist Review Bilobed Neuts Hypersegmented Neuts Variant Lymphocytes Atypical Lymphocytes Abnormal Lymphocytes Plasmacytoid Lymphs Reactive Lymphocytes Vacuolated Monocytes Absolute Blast Cells Smudge Cells Toxic Granulation Dohle Bodies Pelger-Huet Cells Megakaryocytic Frags Kirsten Rods WBC Morphology Comment Platelet Estimate Hypogranular Platelets Platelet Agranulation Clumped Platelets Giant Platelets Platelet Satelliting Bizarre Platelets Plt Morphology Comment Polychromasia Hypochromasia Poikilocytosis Basophilic Stippling Anisocytosis Microcytosis Macrocytosis Spherocytes Micro Spherocytes Pappenheimer Bodies Siderocytes Sickle Cells Target Cells Tear Drop Cells Ovalocytes Stomatocytes Helmet Cells [place] Bodies [place] Rings Jacklyn Cells Elliptocytes Acanthocytes (Spur) Rouleaux Hemoglobin C Crystals Schistocytes RBC Morph Comment Smear Path Review David Bodies Sodium 136 (136-148) mmol/L Potassium 4.0 (3.5-5.1) mmol/L Chloride 100 (98-107) mmol/L Carbon Dioxide 27.7 (21.0-32.0) mmol/L BUN 11 (7.0-18.0) mg/dL Creatinine 0.9 (0.8-1.3) mg/dL Est Cr Clr Drug Dosing 92.83 mL/min Estimated GFR (MDRD) > 60.0 ml/min Glucose 282 H (74-106) mg/dL POC Glucose 292 H (70-99) mg/dL Hemoglobin A1c (4.5 - 6.2) % Calcium 8.0 L (8.5-10.1) mg/dL Phosphorus 2.7 (2.6-4.7) mg/dL Magnesium 2.4 (1.8-2.4) mg/dL Total Bilirubin 0.7 (0.2-1.0) mg/dL AST 58 H (15-37) IU/L ALT 68 H (14-63) IU/L Alkaline Phosphatase 86 (46-116) U/L Troponin I (0.000-0.056) ng/mL C-Reactive Protein (0.00-0.90) mg/dL Total Protein 7.4 (6.4-8.2) g/dL Albumin 2.4 L (3.4-5.0) g/dL Globulin 5.0 H (2.6-4.0) g/dL Albumin/Globulin Ratio 0.5 L (0.9-1.6) Urine Color Urine Appearance Urine pH (5.0-8.0) Ur Specific [place] (1.001-1.035) Urine Protein (NEGATIVE) mg/dL Urine Glucose (UA) (NEGATIVE) mg/dL Urine Ketones (NEGATIVE) mg/dL Urine Occult Blood (NEGATIVE) Urine Nitrite (NEGATIVE) Urine Bilirubin (NEGATIVE) Urine Urobilinogen (<2.0) EU/dL Ur Leukocyte Esterase (NEGATIVE) Urine RBC (0-2/HPF) Urine WBC (0-5/HPF) Ur Epithelial Cells (NONE-FEW) Urine Bacteria (NEGATIVE) Urine Mucus (NONE-MOD) SARS-CoV-2 RNA (YARON) (NEGATIVE) Bld Parasites Quantity Slides for Path Review 09/28/21 09/28/21 Range/Units 06:46 11:49 WBC (4.0-11.0) K/uL RBC (4.50-5.90) M/uL Hgb (13.0-17.0) g/dL Hct (38.0-50.0) % MCV (80.0-98.0) fL MCH (27.0-32.0) pg MCHC (31.0-37.0) g/dL RDW Std Deviation (28.0-62.0) fl RDW Coeff of Lala (11.0-15.0) % Plt Count (150-400) K/uL MPV (7.40-12.00) fL Neut % (Auto) (48.0-80.0) % Lymph % (Auto) (16.0-40.0) % [place] % (Auto) (0.0-15.0) % Eos % (Auto) (0.0-7.0) % Baso % (Auto) (0.0-1.5) % Neut # (Auto) (1.4-5.7) K/uL Lymph # (Auto) (0.6-2.4) K/uL [place] # (Auto) (0.0-0.8) K/uL Eos # (Auto) (0.0-0.7) K/uL Baso # (Auto) (0.0-0.1) K/uL Add Manual Diff Neutrophils % (Manual) Band Neutrophils % Lymphocytes % (Manual) Atypical Lymphs % Immat Monocytes % (Man) Monocytes % (Manual) Eosinophils % (Manual) Basophils % (Manual) Metamyelocytes % Myelocytes % Promyelocytes % Blast Cells % Plasma Cell % (Manual) Nucleated RBC % /100WBC Immature Gran # Absolute Neutrophils Absolute Seg Neuts Band Neutrophils # Lymphocytes # (Manual) Monocytes # (Manual) Eosinophils # (Manual) Basophils # (Manual) Absolute Metamyelocyte Absolute Myelocytes Absolute Promyelocytes Absolute Plasma Cells Nucleated RBCs Nucleated RBCs # K/uL Differential Comment Pathologist Review Bilobed Neuts Hypersegmented Neuts Variant Lymphocytes Atypical Lymphocytes Abnormal Lymphocytes Plasmacytoid Lymphs Reactive Lymphocytes Vacuolated Monocytes Absolute Blast Cells Smudge Cells Toxic Granulation Dohle Bodies Pelger-Huet Cells Megakaryocytic Frags Kirsten Rods WBC Morphology Comment Platelet Estimate Hypogranular Platelets Platelet Agranulation Clumped Platelets Giant Platelets Platelet Satelliting Bizarre Platelets Plt Morphology Comment Polychromasia Hypochromasia Poikilocytosis Basophilic Stippling Anisocytosis Microcytosis Macrocytosis Spherocytes Micro Spherocytes Pappenheimer Bodies Siderocytes Sickle Cells Target Cells Tear Drop Cells Ovalocytes Stomatocytes Helmet Cells [place] Bodies [place] Rings Jacklyn Cells Elliptocytes Acanthocytes (Spur) Rouleaux Hemoglobin C Crystals Schistocytes RBC Morph Comment Smear Path Review David Bodies Sodium (136-148) mmol/L Potassium (3.5-5.1) mmol/L Chloride (98-107) mmol/L Carbon Dioxide (21.0-32.0) mmol/L BUN (7.0-18.0) mg/dL Creatinine (0.8-1.3) mg/dL Est Cr Clr Drug Dosing mL/min Estimated GFR (MDRD) ml/min Glucose (74-106) mg/dL POC Glucose 251 H 264 H (70-99) mg/dL Hemoglobin A1c (4.5 - 6.2) % Calcium (8.5-10.1) mg/dL Phosphorus (2.6-4.7) mg/dL Magnesium (1.8-2.4) mg/dL Total Bilirubin (0.2-1.0) mg/dL AST (15-37) IU/L ALT (14-63) IU/L Alkaline Phosphatase (46-116) U/L Troponin I (0.000-0.056) ng/mL C-Reactive Protein (0.00-0.90) mg/dL Total Protein (6.4-8.2) g/dL Albumin (3.4-5.0) g/dL Globulin (2.6-4.0) g/dL Albumin/Globulin Ratio (0.9-1.6) Urine Color Urine Appearance Urine pH (5.0-8.0) Ur Specific [place] (1.001-1.035) Urine Protein (NEGATIVE) mg/dL Urine Glucose (UA) (NEGATIVE) mg/dL Urine Ketones (NEGATIVE) mg/dL Urine Occult Blood (NEGATIVE) Urine Nitrite (NEGATIVE) Urine Bilirubin (NEGATIVE) Urine Urobilinogen (<2.0) EU/dL Ur Leukocyte Esterase (NEGATIVE) Urine RBC (0-2/HPF) Urine WBC (0-5/HPF) Ur Epithelial Cells (NONE-FEW) Urine Bacteria (NEGATIVE) Urine Mucus (NONE-MOD) SARS-CoV-2 RNA (YARON) (NEGATIVE) Bld Parasites Quantity Slides for Path Review Result Diagrams: 09/28/21 06:15 09/28/21 06:15 Sepsis Event Note - Evaluation Sepsis Screening Result: No Definite Risk - Focused Exam Vital Signs: Vital Signs Temp Pulse Resp BP BP Pulse Ox 09/28/21 13:44 92 L 09/28/21 12:05 89 L 09/28/21 12:00 35.5 C L 87 24 H 151/81 H 86 L 09/28/21 09:23 168/92 H 09/28/21 08:54 168/92 H 09/28/21 08:00 35.9 C L 87 24 H 168/92 H 89 L - Problem List & Annotations (1) HTN (hypertension) SNOMED Code(s): 44972510 Code(s): I10 - ESSENTIAL (PRIMARY) HYPERTENSION Status: Acute Current Visit: Yes (2) Hypokalemia SNOMED Code(s): 11079020 Code(s): E87.6 - HYPOKALEMIA Status: Acute Current Visit: Yes (3) Pneumonia due to COVID-19 virus SNOMED Code(s): 135112662611953294 Code(s): U07.1 - COVID-19; J12.82 - PNEUMONIA DUE TO CORONAVIRUS DISEASE 2019 Status: Acute Current Visit: Yes (4) Diabetes mellitus SNOMED Code(s): 22435679 Code(s): E11.9 - TYPE 2 DIABETES MELLITUS WITHOUT COMPLICATIONS Status: Acute Current Visit: No Qualifiers: Diabetes mellitus type: type 2 Diabetes mellitus skilled nursing insulin use: without skilled nursing use Diabetes mellitus complication status: with hyperglycem ia Qualified Code(s): E11.65 - Type 2 diabetes mellitus with hyperglycemia - Problem List Review Problem List Initiated/Reviewed/Updated: Yes - My Orders Last 24 Hours: My Active Orders 09/27/21 Dinner [employer] Diet [DIET] 09/27/21 21:24 Ambulate [RC] ASDIRECTED Oxygen Therapy [RC] PRN VTE/DVT Education [RC] PER UNIT ROUTINE Vital Signs [RC] Q4H Albuterol/Ipratropium [DuoNeb 3.0-0.5 MG/3 ML] 3 ml NEB Q4HRRT PRN Ondansetron [Zofran] 4 mg IVPUSH Q4H PRN Sequential Compression Device [OM.PC] Per Unit Routine Resuscitation Status Routine 09/27/21 21:27 Antiembolic Devices [RC] PER UNIT ROUTINE 09/27/21 21:29 RT Aerosol Therapy [RC] ASDIRECTED 09/27/21 21:30 Enoxaparin [Lovenox] 40 mg SUBCUT BID Pantoprazole [ProTONIX IV] 40 mg IV DAILY 09/27/21 21:32 RT Post Treatment Assessment [RC] Click to Edit RT Pre-Treatment Assessment [RC] Click to Edit 09/27/21 21:36 Telemetry Monitoring [Cardiac Monitoring] [RC] . DIRECTED 09/27/21 21:45 Albuterol/Ipratropium [Combivent Respimat] See Dose Instructions INH Q4H amLODIPine [Norvasc] 10 mg PO DAILY 09/27/21 22:08 Incentive Spirometry [RT Incentive Spirometry] [RC] Q2HWA 09/28/21 00:24 Dextrose 50% in Water 50 ml IVPUSH ASDIRECTED PRN Glucagon,Human Recombinant [GlucaGen] 1 mg IM ASDIRECTED PRN 09/28/21 00:45 lisinopriL [Prinivil] 40 mg PO DAILY 09/28/21 07:30 Insulin Aspart [NovoLOG] See Protocol SUBCUT TIDAC 09/28/21 09:00 Baricitinib [Olumiant] 4 mg PO DAILY dexAMETHasone 6 mg PO DAILY 09/28/21 21:30 Remdesivir 100 mg Sodium Chloride 0.9% [Normal Saline AdvBag] 100 ml IV Q24H - Plan Plan:: 51-year-old male admitted for acute hypoxic respiratory failure secondary to Covid pneumonia cont patient on IV remdesivir and oral Decadron Lovenox for DVT prophylaxis Combivent scheduled every 4 hours Duo nebs as needed for shortness of breath Continue baricitinib, explained the risks and benefits of the medication and patient has given me consent to use the medication, fact sheet was provided as well Patient has been diagnosed with diabetes, glycated hemoglobin were checked in the ER which was high We will start patient on sliding scale insulin Diabetic diet Resume antihypertensive meds Encourage proning and incentive spirometry
--- NOTE | 2021-09-28 16:50 | PCM.SN.2 ---
- Free Text/Narrative Note: Spoke to patient's over the phone, gave her a short update about patient's increasing oxygen demand and requirement to be transferred to ICU. She has been Vietnamese-speaking but was able to comprehend most of the conversation and was thankful for the update. Time Documentation
[2021-09-28] MEDS: REMDESIVIR 100 MG in Sodium Chloride 0.9% 100 ML IV SCH (21:22)
[2021-09-29] MEDS: Albuterol/Ipratropium 4 GM Inhalation Spray INH SCH ×6 (01:05→21:42)
[2021-09-29 06:40] LABS: BLOOD UREA NITROGEN,BUN 15 mg/dL (7.0-18.0); CARBON DIOXIDE,CO2 26.4 mmol/L (21.0-32.0); CHLORIDE,CL 99 mmol/L (98-107); GLUCOSE RANDOM 265 mg/dL (74-106); POTASSIUM,K 3.9 mmol/L (3.5-5.1); SODIUM,NA 137 mmol/L (136-148)
[2021-09-29] MEDS: Pantoprazole 40 MG Tab.CR PO SCH (09:17)
[2021-09-29] MEDS: Enoxaparin 40 MG/0.4 ML Syringe SUBCUT SCH ×2 (09:17→21:40)
[2021-09-29] MEDS: Dexamethasone 4 MG Tab PO SCH (09:18)
[2021-09-29] MEDS: amLODIPine 5 MG Tab PO SCH (09:52)
[2021-09-29] MEDS: Lisinopril 10 MG Tab PO SCH (09:53)
[2021-09-29] MEDS: Insulin Aspart 100 Units/ML 3 ML Pen SUBCUT SCH ×3 (10:14→18:14)
--- NOTE | 2021-09-29 14:51 | PCM.PN ---
- General Info Date of Service: 09/29/21 Admission Dx/Problem (Free Text): Admission Diagnosis/Problem Admission Diagnosis/Problem Hypoxia Subjective Update: Patient seen at bedside, continues to have shortness of breath, appears anxious, continues to do frequent incentive spirometry, appetite is good is urinating well - Review of Systems General: Reports: Fatigue, Malaise. Denies: Fever, Weakness Pulmonary: Reports: Shortness of Breath, Cough, Sputum. Denies: Pleuritic Chest Pain Cardiovascular: Denies: Chest Pain Gastrointestinal: Denies: Abdominal Pain, Constipation, Decreased Appetite Genitourinary: Denies: Dysuria, Frequency, Burning Musculoskeletal: Denies: Neck Pain, Shoulder Pain, Arm Pain Skin: Denies: Cyanosis, Jaundice, Mottled - Patient Data Vitals - Most Recent: Last Vital Signs Temp 36.0 C L 09/29/21 03:00 Pulse 82 09/28/21 16:00 Resp 24 H 09/29/21 07:00 BP 166/77 H 09/29/21 09:53 Pulse Ox 94 L 09/29/21 07:00 Weight - Most Recent: 94.801 kg I&O - Last 24 Hours: Intake & Output 09/28/21 09/29/21 09/29/21 22:59 06:59 14:59 Intake Total 2000 1100 Output Total 2700 1200 Balance -700 -100 Lab Results Last 24 Hours: Laboratory Results - last 24 hr 09/28/21 09/29/21 09/29/21 Range/Units 16:30 05:00 05:00 WBC 7.89 (4.0-11.0) K/uL RBC 5.23 (4.50-5.90) M/uL Hgb 16.4 (13.0-17.0) g/dL Hct 45.1 (38.0-50.0) % MCV 86.2 (80.0-98.0) fL MCH 31.4 (27.0-32.0) pg MCHC 36.4 (31.0-37.0) g/dL RDW Std Deviation 40.1 (28.0-62.0) fl RDW Coeff of Lala 13 (11.0-15.0) % Plt Count 240 (150-400) K/uL MPV 12.00 (7.40-12.00) fL Add Manual Diff YES Neutrophils % (Manual) 68 (48.0-80.0) % Lymphocytes % (Manual) 19 (16.0-40.0) % Monocytes % (Manual) 13 (0.0-15.0) % Nucleated RBC % 0.0 /100WBC Absolute Seg Neuts 5.4 (1.4-5.7) Lymphocytes # (Manual) 1.5 (0.6-2.4) Monocytes # (Manual) 1.0 H (0.0-0.8) Nucleated RBCs # 0 K/uL Sodium 137 (136-148) mmol/L Potassium 3.9 (3.5-5.1) mmol/L Chloride 99 (98-107) mmol/L Carbon Dioxide 26.4 (21.0-32.0) mmol/L BUN 15 (7.0-18.0) mg/dL Creatinine 0.8 (0.8-1.3) mg/dL Est Cr Clr Drug Dosing 104.43 mL/min Estimated GFR (MDRD) > 60.0 ml/min Glucose 265 H (74-106) mg/dL POC Glucose 271 H (70-99) mg/dL Calcium 7.8 L (8.5-10.1) mg/dL Phosphorus 3.5 (2.6-4.7) mg/dL Magnesium 2.3 (1.8-2.4) mg/dL Total Bilirubin 0.8 (0.2-1.0) mg/dL AST 35 (15-37) IU/L ALT 56 (14-63) IU/L Alkaline Phosphatase 81 (46-116) U/L Total Protein 6.7 (6.4-8.2) g/dL Albumin 2.5 L (3.4-5.0) g/dL Globulin 4.2 H (2.6-4.0) g/dL Albumin/Globulin Ratio 0.6 L (0.9-1.6) 09/29/21 Range/Units 09:58 WBC (4.0-11.0) K/uL RBC (4.50-5.90) M/uL Hgb (13.0-17.0) g/dL Hct (38.0-50.0) % MCV (80.0-98.0) fL MCH (27.0-32.0) pg MCHC (31.0-37.0) g/dL RDW Std Deviation (28.0-62.0) fl RDW Coeff of Lala (11.0-15.0) % Plt Count (150-400) K/uL MPV (7.40-12.00) fL Add Manual Diff Neutrophils % (Manual) (48.0-80.0) % Lymphocytes % (Manual) (16.0-40.0) % Monocytes % (Manual) (0.0-15.0) % Nucleated RBC % /100WBC Absolute Seg Neuts (1.4-5.7) Lymphocytes # (Manual) (0.6-2.4) Monocytes # (Manual) (0.0-0.8) Nucleated RBCs # K/uL Sodium (136-148) mmol/L Potassium (3.5-5.1) mmol/L Chloride (98-107) mmol/L Carbon Dioxide (21.0-32.0) mmol/L BUN (7.0-18.0) mg/dL Creatinine (0.8-1.3) mg/dL Est Cr Clr Drug Dosing mL/min Estimated GFR (MDRD) ml/min Glucose (74-106) mg/dL POC Glucose 232 H (70-99) mg/dL Calcium (8.5-10.1) mg/dL Phosphorus (2.6-4.7) mg/dL Magnesium (1.8-2.4) mg/dL Total Bilirubin (0.2-1.0) mg/dL AST (15-37) IU/L ALT (14-63) IU/L Alkaline Phosphatase (46-116) U/L Total Protein (6.4-8.2) g/dL Albumin (3.4-5.0) g/dL Globulin (2.6-4.0) g/dL Albumin/Globulin Ratio (0.9-1.6) Med Orders - Current: Current Medications Albuterol/Ipratropium (Albuterol/Ipratropium 3.0-0.5 Mg/3 Ml Neb Soln) 3 ml NEB Q4HRRT PRN PRN Reason: Shortness Of Breath/wheezing Albuterol/Ipratropium (Albuterol/Ipratropium 4 Gm Inhalation [place]) 0 gm INH Q4H [facility] Last Admin: 09/29/21 14:37 Dose: 1 puff Documented by: Amlodipine Besylate (Amlodipine 5 Mg Tab) 10 mg PO DAILY [facility] Last Admin: 09/29/21 09:52 Dose: 10 mg Documented by: Baricitinib (Baricitinib 2 Mg Tab) 4 mg PO DAILY [facility] Last Admin: 09/29/21 09:18 Dose: 4 mg Documented by: Dexamethasone (Dexamethasone 4 Mg Tab) 6 mg PO DAILY [facility] Last Admin: 09/29/21 09:18 Dose: 6 mg Documented by: Dextrose/Water (50% Dextrose In Water 50 Ml Syringe) 50 ml IVPUSH ASDIRECTED PRN PRN Reason: Hypoglycemia Enoxaparin Sodium (Enoxaparin 40 Mg/0.4 Ml Syringe) 40 mg SUBCUT BID [facility] Last Admin: 09/29/21 09:17 Dose: 40 mg Documented by: Glucagon (Glucagon,Human Recombinant 1 Mg Vial) 1 mg IM ASDIRECTED PRN PRN Reason: Hypoglycemia Remdesivir 100 mg/ Sodium (Chloride) 100 mls @ 100 mls/hr IV Q24H [facility] Stop: 10/01/21 22:29 Last Admin: 09/28/21 21:22 Dose: 100 mls/hr Documented by: Insulin Aspart (Insulin Aspart 100 Units/Ml 3 Ml Pen) 0 unit SUBCUT TIDAC [facility]; Protocol Last Admin: 09/29/21 10:14 Dose: 4 unit Documented by: Lisinopril (Lisinopril 10 Mg Tab) 40 mg PO DAILY [facility] Last Admin: 09/29/21 09:53 Dose: 40 mg Documented by: Ondansetron HCl (Ondansetron 4 Mg/2 Ml Sdv) 4 mg IVPUSH Q4H PRN PRN Reason: Nausea/Vomiting Pantoprazole Sodium (Pantoprazole 40 Mg Tab.Cr) 40 mg PO DAILY [facility] Last Admin: 09/29/21 09:17 Dose: 40 mg Documented by: Sodium Chloride (Sodium Chloride 0.9% 10 Ml Syringe) 10 ml FLUSH ASDIRECTED PRN PRN Reason: Keep Vein Open Last Admin: 09/27/21 16:36 Dose: 10 ml Documented by: Sodium Chloride (Sodium Chloride 0.9% 2.5 Ml Syringe) 2.5 ml FLUSH ASDIRECTED PRN PRN Reason: Keep Vein Open Last Admin: 09/27/21 16:37 Dose: 2.5 ml Documented by: Discontinued Medications Acetaminophen (Acetaminophen 500 Mg Tab) 1,000 mg PO ONETIME ONE Stop: 09/27/21 17:58 Last Admin: 09/27/21 18:13 Dose: 1,000 mg Documented by: Aspirin (Aspirin 81 Mg Tab.Chew) 324 mg PO ONETIME ONE Stop: 09/27/21 16:18 Last Admin: 09/27/21 16:37 Dose: 324 mg Documented by: Dexamethasone (Dexamethasone 10 Mg/Ml Sdv) 6 mg IVPUSH ONETIME ONE Stop: 09/27/21 16:30 Last Admin: 09/27/21 16:36 Dose: 6 mg Documented by: Sodium Chloride (Normal Saline) 1,000 mls @ 100 mls/hr IV STAT ONE Stop: 09/28/21 02:28 Last Admin: 09/27/21 16:36 Dose: 100 mls/hr Documented by: Sodium Chloride (Normal Saline) 1,000 mls @ 125 mls/hr IV STAT ONE Stop: 09/28/21 01:56 Last Admin: 09/27/21 18:13 Dose: 125 mls/hr Documented by: Remdesivir 200 mg/ Sodium (Chloride) 250 mls @ 250 mls/hr IV ONETIME ONE Stop: 09/27/21 17:59 Last Admin: 09/27/21 19:04 Dose: 250 mls/hr Documented by: Iopamidol (Iopamidol 755 Mg/Ml 500 Ml Multipack Bottle) 100 ml IVPUSH ONETIME STA Stop: 09/27/21 18:54 Last Admin: 09/27/21 18:53 Dose: 100 ml Documented by: Ketorolac Tromethamine (Ketorolac 30 Mg/Ml Sdv) 30 mg IVPUSH ONETIME ONE Stop: 09/27/21 17:58 Last Admin: 09/27/21 18:14 Dose: 30 mg Documented by: Non-Formulary Medication (Lisinopril [Lisinopril]) 40 mg PO DAILY [facility] Last Admin: 09/28/21 00:35 Dose: Not Given Documented by: Pantoprazole Sodium (Pantoprazole 40 Mg Vial) 40 mg IV DAILY [facility] Last Admin: 09/28/21 08:53 Dose: 40 mg Documented by: Potassium Chloride (Potassium Chloride 20 Meq Tab.Er) 40 meq PO ONETIME ONE Stop: 09/27/21 17:59 Last Admin: 09/27/21 18:14 Dose: 40 meq Documented by: - Exam Quality Assessment: Supplemental Oxygen General: Alert, Oriented, Cooperative, Mild Distress Lungs: Normal Respiratory Effort, Decreased Breath Sounds, Crackles, Rales Cardiovascular: Regular Rate, Regular Rhythm GI/Abdominal Exam: Normal Bowel Sounds, Soft, Non-Tender Extremities: Normal Inspection, Normal Range of Motion, No Pedal Edema - Patient Data Lab Results Last 24 hrs: Laboratory Results - last 24 hr 09/28/21 09/29/21 09/29/21 Range/Units 16:30 05:00 05:00 WBC 7.89 (4.0-11.0) K/uL RBC 5.23 (4.50-5.90) M/uL Hgb 16.4 (13.0-17.0) g/dL Hct 45.1 (38.0-50.0) % MCV 86.2 (80.0-98.0) fL MCH 31.4 (27.0-32.0) pg MCHC 36.4 (31.0-37.0) g/dL RDW Std Deviation 40.1 (28.0-62.0) fl RDW Coeff of Lala 13 (11.0-15.0) % Plt Count 240 (150-400) K/uL MPV 12.00 (7.40-12.00) fL Add Manual Diff YES Neutrophils % (Manual) 68 (48.0-80.0) % Lymphocytes % (Manual) 19 (16.0-40.0) % Monocytes % (Manual) 13 (0.0-15.0) % Nucleated RBC % 0.0 /100WBC Absolute Seg Neuts 5.4 (1.4-5.7) Lymphocytes # (Manual) 1.5 (0.6-2.4) Monocytes # (Manual) 1.0 H (0.0-0.8) Nucleated RBCs # 0 K/uL Sodium 137 (136-148) mmol/L Potassium 3.9 (3.5-5.1) mmol/L Chloride 99 (98-107) mmol/L Carbon Dioxide 26.4 (21.0-32.0) mmol/L BUN 15 (7.0-18.0) mg/dL Creatinine 0.8 (0.8-1.3) mg/dL Est Cr Clr Drug Dosing 104.43 mL/min Estimated GFR (MDRD) > 60.0 ml/min Glucose 265 H (74-106) mg/dL POC Glucose 271 H (70-99) mg/dL Calcium 7.8 L (8.5-10.1) mg/dL Phosphorus 3.5 (2.6-4.7) mg/dL Magnesium 2.3 (1.8-2.4) mg/dL Total Bilirubin 0.8 (0.2-1.0) mg/dL AST 35 (15-37) IU/L ALT 56 (14-63) IU/L Alkaline Phosphatase 81 (46-116) U/L Total Protein 6.7 (6.4-8.2) g/dL Albumin 2.5 L (3.4-5.0) g/dL Globulin 4.2 H (2.6-4.0) g/dL Albumin/Globulin Ratio 0.6 L (0.9-1.6) 09/29/21 Range/Units 09:58 WBC (4.0-11.0) K/uL RBC (4.50-5.90) M/uL Hgb (13.0-17.0) g/dL Hct (38.0-50.0) % MCV (80.0-98.0) fL MCH (27.0-32.0) pg MCHC (31.0-37.0) g/dL RDW Std Deviation (28.0-62.0) fl RDW Coeff of Lala (11.0-15.0) % Plt Count (150-400) K/uL MPV (7.40-12.00) fL Add Manual Diff Neutrophils % (Manual) (48.0-80.0) % Lymphocytes % (Manual) (16.0-40.0) % Monocytes % (Manual) (0.0-15.0) % Nucleated RBC % /100WBC Absolute Seg Neuts (1.4-5.7) Lymphocytes # (Manual) (0.6-2.4) Monocytes # (Manual) (0.0-0.8) Nucleated RBCs # K/uL Sodium (136-148) mmol/L Potassium (3.5-5.1) mmol/L Chloride (98-107) mmol/L Carbon Dioxide (21.0-32.0) mmol/L BUN (7.0-18.0) mg/dL Creatinine (0.8-1.3) mg/dL Est Cr Clr Drug Dosing mL/min Estimated GFR (MDRD) ml/min Glucose (74-106) mg/dL POC Glucose 232 H (70-99) mg/dL Calcium (8.5-10.1) mg/dL Phosphorus (2.6-4.7) mg/dL Magnesium (1.8-2.4) mg/dL Total Bilirubin (0.2-1.0) mg/dL AST (15-37) IU/L ALT (14-63) IU/L Alkaline Phosphatase (46-116) U/L Total Protein (6.4-8.2) g/dL Albumin (3.4-5.0) g/dL Globulin (2.6-4.0) g/dL Albumin/Globulin Ratio (0.9-1.6) Result Diagrams: 09/29/21 05:00 09/29/21 05:00 Sepsis Event Note - Evaluation Sepsis Screening Result: No Definite Risk - Focused Exam Vital Signs: Vital Signs Temp Resp BP BP Pulse Ox 09/29/21 09:53 166/77 H 09/29/21 09:52 161/77 H 09/29/21 07:00 24 H 142/79 H 94 L 09/29/21 06:00 26 H 143/82 H 90 L 09/29/21 05:00 37 H 139/77 88 L 09/29/21 04:00 32 H 139/77 94 L 09/29/21 03:00 36.0 C L 38 H 148/88 H 90 L - Problem List & Annotations (1) HTN (hypertension) SNOMED Code(s): 02893791 Code(s): I10 - ESSENTIAL (PRIMARY) HYPERTENSION Status: Acute Current Visit: Yes (2) Hypokalemia SNOMED Code(s): 62016138 Code(s): E87.6 - HYPOKALEMIA Status: Acute Current Visit: Yes (3) Pneumonia due to COVID-19 virus SNOMED Code(s): 368479611604623686 Code(s): U07.1 - COVID-19; J12.82 - PNEUMONIA DUE TO CORONAVIRUS DISEASE 2019 Status: Acute Current Visit: Yes (4) Diabetes mellitus SNOMED Code(s): 81134206 Code(s): E11.9 - TYPE 2 DIABETES MELLITUS WITHOUT COMPLICATIONS Status: Acute Current Visit: No Qualifiers: Diabetes mellitus type: type 2 Diabetes mellitus fdc insulin use: without registered nurse practitioner use Diabetes mellitus complication status: with hyperglycemia Qualified Code(s): E11.65 - Type 2 diabetes mellitus with hyperglycemia - Problem List Review Problem List Initiated/Reviewed/Updated: Yes - My Orders Last 24 Hours: My Active Orders 09/28/21 16:44 Transfer Patient (Change bed) [ADT] Routine 09/28/21 21:30 Remdesivir 100 mg Sodium Chloride 0.9% [Normal Saline AdvBag] 100 ml IV Q24H 09/29/21 09:00 Pantoprazole [ProTONIX] 40 mg PO DAILY - Plan Plan:: 51-year-old male admitted for acute hypoxic respiratory failure secondary to Covid pneumonia cont patient on IV remdesivir and oral Decadron Lovenox for DVT prophylaxis Combivent scheduled every 4 hours Duo nebs as needed for shortness of breath Continue baricitinib, Patient has been diagnosed with diabetes, glycated hemoglobin were checked in the ER which was high cont sliding scale insulin Diabetic diet Resume antihypertensive meds Encourage proning and incentive spirometry
[2021-09-29] MEDS: REMDESIVIR 100 MG in Sodium Chloride 0.9% 100 ML IV SCH (21:41)
[2021-09-30] MEDS: Albuterol/Ipratropium 4 GM Inhalation Spray INH SCH ×6 (01:33→21:26)
[2021-09-30 07:31] LABS: BLOOD UREA NITROGEN,BUN 14 mg/dL (7.0-18.0); CARBON DIOXIDE,CO2 27.2 mmol/L (21.0-32.0); CHLORIDE,CL 98 mmol/L (98-107); GLUCOSE RANDOM 230 mg/dL (74-106); POTASSIUM,K 3.2 mmol/L (3.5-5.1); SODIUM,NA 134 mmol/L (136-148)
[2021-09-30] MEDS: Pantoprazole 40 MG Tab.CR PO SCH (09:00)
[2021-09-30] MEDS: Dexamethasone 4 MG Tab PO SCH (09:00)
[2021-09-30] MEDS: Lisinopril 10 MG Tab PO SCH (09:01)
[2021-09-30] MEDS: amLODIPine 5 MG Tab PO SCH (09:02)
[2021-09-30] MEDS: Insulin Aspart 100 Units/ML 3 ML Pen SUBCUT SCH ×3 (10:10→18:22)
[2021-09-30] MEDS: Enoxaparin 40 MG/0.4 ML Syringe SUBCUT SCH ×2 (10:11→21:28)
--- NOTE | 2021-09-30 14:41 | PCM.PN ---
- General Info Date of Service: 09/30/21 - Review of Systems Systems Review Comment:: feeling a little bit better, cough improving. Short of breath with exercise - Patient Data Vitals - Most Recent: Last Vital Signs Temp 36.1 C 09/30/21 12:00 Pulse 82 09/28/21 16:00 Resp 23 H 09/30/21 12:00 BP 158/57 H 09/30/21 12:00 Pulse Ox 95 09/30/21 12:00 Weight - Most Recent: 94.801 kg I&O - Last 24 Hours: Intake & Output 09/29/21 09/30/21 09/30/21 22:59 06:59 14:59 Intake Total 1650 2600 Output Total 2600 1400 Balance -950 1200 Lab Results Last 24 Hours: Laboratory Results - last 24 hr 09/29/21 09/29/21 09/30/21 Range/Units 15:00 18:03 06:06 WBC 7.65 (4.0-11.0) K/uL RBC 5.28 (4.50-5.90) M/uL Hgb 16.1 (13.0-17.0) g/dL Hct 44.8 (38.0-50.0) % MCV 84.8 (80.0-98.0) fL MCH 30.5 (27.0-32.0) pg MCHC 35.9 (31.0-37.0) g/dL RDW Std Deviation 37.6 (28.0-62.0) fl RDW Coeff of Lala 12 (11.0-15.0) % Plt Count 278 (150-400) K/uL MPV 11.30 (7.40-12.00) fL Add Manual Diff YES Neutrophils % (Manual) 66 (48.0-80.0) % Band Neutrophils % 3 % Lymphocytes % (Manual) 29 (16.0-40.0) % Monocytes % (Manual) 2 (0.0-15.0) % Absolute Seg Neuts 5.0 (1.4-5.7) Band Neutrophils # 0.2 Lymphocytes # (Manual) 2.2 (0.6-2.4) Monocytes # (Manual) 0.2 (0.0-0.8) Sodium (136-148) mmol/L Potassium (3.5-5.1) mmol/L Chloride (98-107) mmol/L Carbon Dioxide (21.0-32.0) mmol/L BUN (7.0-18.0) mg/dL Creatinine (0.8-1.3) mg/dL Est Cr Clr Drug Dosing mL/min Estimated GFR (MDRD) ml/min Glucose (74-106) mg/dL POC Glucose 261 H 244 H (70-99) mg/dL Calcium (8.5-10.1) mg/dL Phosphorus (2.6-4.7) mg/dL Magnesium (1.8-2.4) mg/dL Total Bilirubin (0.2-1.0) mg/dL AST (15-37) IU/L ALT (14-63) IU/L Alkaline Phosphatase (46-116) U/L Total Protein (6.4-8.2) g/dL Albumin (3.4-5.0) g/dL Globulin (2.6-4.0) g/dL Albumin/Globulin Ratio (0.9-1.6) 09/30/21 09/30/21 Range/Units 06:06 09:08 WBC (4.0-11.0) K/uL RBC (4.50-5.90) M/uL Hgb (13.0-17.0) g/dL Hct (38.0-50.0) % MCV (80.0-98.0) fL MCH (27.0-32.0) pg MCHC (31.0-37.0) g/dL RDW Std Deviation (28.0-62.0) fl RDW Coeff of Lala (11.0-15.0) % Plt Count (150-400) K/uL MPV (7.40-12.00) fL Add Manual Diff Neutrophils % (Manual) (48.0-80.0) % Band Neutrophils % % Lymphocytes % (Manual) (16.0-40.0) % Monocytes % (Manual) (0.0-15.0) % Absolute Seg Neuts (1.4-5.7) Band Neutrophils # Lymphocytes # (Manual) (0.6-2.4) Monocytes # (Manual) (0.0-0.8) Sodium 134 L (136-148) mmol/L Potassium 3.2 L (3.5-5.1) mmol/L Chloride 98 (98-107) mmol/L Carbon Dioxide 27.2 (21.0-32.0) mmol/L BUN 14 (7.0-18.0) mg/dL Creatinine 0.7 L (0.8-1.3) mg/dL Est Cr Clr Drug Dosing 119.35 mL/min Estimated GFR (MDRD) > 60.0 ml/min Glucose 230 H (74-106) mg/dL POC Glucose 197 H (70-99) mg/dL Calcium 7.9 L (8.5-10.1) mg/dL Phosphorus 3.5 (2.6-4.7) mg/dL Magnesium 2.3 (1.8-2.4) mg/dL Total Bilirubin 0.9 (0.2-1.0) mg/dL AST 32 (15-37) IU/L ALT 47 (14-63) IU/L Alkaline Phosphatase 80 (46-116) U/L Total Protein 7.0 (6.4-8.2) g/dL Albumin 2.4 L (3.4-5.0) g/dL Globulin 4.6 H (2.6-4.0) g/dL Albumin/Globulin Ratio 0.5 L (0.9-1.6) Vu Results Last 24 Hours: Microbiology 09/27/21 18:45 Urine Culture - Final Urine Med Orders - Current: Current Medications Albuterol/Ipratropium (Albuterol/Ipratropium 3.0-0.5 Mg/3 Ml Neb Soln) 3 ml NEB Q4HRRT PRN PRN Reason: Shortness Of Breath/wheezing Albuterol/Ipratropium (Albuterol/Ipratropium 4 Gm Inhalation [place]) 0 gm INH Q4H [facility] Last Admin: 09/30/21 10:11 Dose: 1 puff Documented by: Amlodipine Besylate (Amlodipine 5 Mg Tab) 10 mg PO DAILY [facility] Last Admin: 09/30/21 09:02 Dose: 10 mg Documented by: Baricitinib (Baricitinib 2 Mg Tab) 4 mg PO DAILY [facility] Last Admin: 09/30/21 09:00 Dose: 4 mg Documented by: Dexamethasone (Dexamethasone 4 Mg Tab) 6 mg PO DAILY [facility] Last Admin: 09/30/21 09:00 Dose: 6 mg Documented by: Dextrose/Water (50% Dextrose In Water 50 Ml Syringe) 50 ml IVPUSH ASDIRECTED PRN PRN Reason: Hypoglycemia Enoxaparin Sodium (Enoxaparin 40 Mg/0.4 Ml Syringe) 40 mg SUBCUT BID [facility] Last Admin: 09/30/21 10:11 Dose: 40 mg Documented by: Glucagon (Glucagon,Human Recombinant 1 Mg Vial) 1 mg IM ASDIRECTED PRN PRN Reason: Hypoglycemia Remdesivir 100 mg/ Sodium (Chloride) 100 mls @ 100 mls/hr IV Q24H [facility] Stop: 10/01/21 22:29 Last Admin: 09/29/21 21:41 Dose: 100 mls/hr Documented by: Insulin Aspart (Insulin Aspart 100 Units/Ml 3 Ml Pen) 0 unit SUBCUT TIDAC [facility]; Protocol Last Admin: 09/30/21 10:10 Dose: 2 units Documented by: Lisinopril (Lisinopril 10 Mg Tab) 40 mg PO DAILY [facility] Last Admin: 09/30/21 09:01 Dose: 40 mg Documented by: Ondansetron HCl (Ondansetron 4 Mg/2 Ml Sdv) 4 mg IVPUSH Q4H PRN PRN Reason: Nausea/Vomiting Pantoprazole Sodium (Pantoprazole 40 Mg Tab.Cr) 40 mg PO DAILY [facility] Last Admin: 09/30/21 09:00 Dose: 40 mg Documented by: Sodium Chloride (Sodium Chloride 0.9% 10 Ml Syringe) 10 ml FLUSH ASDIRECTED PRN PRN Reason: Keep Vein Open Last Admin: 09/27/21 16:36 Dose: 10 ml Documented by: Sodium Chloride (Sodium Chloride 0.9% 2.5 Ml Syringe) 2.5 ml FLUSH ASDIRECTED PRN PRN Reason: Keep Vein Open Last Admin: 09/27/21 16:37 Dose: 2.5 ml Documented by: Discontinued Medications Acetaminophen (Acetaminophen 500 Mg Tab) 1,000 mg PO ONETIME ONE Stop: 09/27/21 17:58 Last Admin: 09/27/21 18:13 Dose: 1,000 mg Documented by: Aspirin (Aspirin 81 Mg Tab.Chew) 324 mg PO ONETIME ONE Stop: 09/27/21 16:18 Last Admin: 09/27/21 16:37 Dose: 324 mg Documented by: Dexamethasone (Dexamethasone 10 Mg/Ml Sdv) 6 mg IVPUSH ONETIME ONE Stop: 09/27/21 16:30 Last Admin: 09/27/21 16:36 Dose: 6 mg Documented by: Sodium Chloride (Normal Saline) 1,000 mls @ 100 mls/hr IV STAT ONE Stop: 09/28/21 02:28 Last Admin: 09/27/21 16:36 Dose: 100 mls/hr Documented by: Sodium Chloride (Normal Saline) 1,000 mls @ 125 mls/hr IV STAT ONE Stop: 09/28/21 01:56 Last Admin: 09/27/21 18:13 Dose: 125 mls/hr Documented by: Remdesivir 200 mg/ Sodium (Chloride) 250 mls @ 250 mls/hr IV ONETIME ONE Stop: 09/27/21 17:59 Last Admin: 09/27/21 19:04 Dose: 250 mls/hr Documented by: Iopamidol (Iopamidol 755 Mg/Ml 500 Ml Multipack Bottle) 100 ml IVPUSH ONETIME STA Stop: 09/27/21 18:54 Last Admin: 09/27/21 18:53 Dose: 100 ml Documented by: Ketorolac Tromethamine (Ketorolac 30 Mg/Ml Sdv) 30 mg IVPUSH ONETIME ONE Stop: 09/27/21 17:58 Last Admin: 09/27/21 18:14 Dose: 30 mg Documented by: Non-Formulary Medication (Lisinopril [Lisinopril]) 40 mg PO DAILY [facility] Last Admin: 09/28/21 00:35 Dose: Not Given Documented by: Pantoprazole Sodium (Pantoprazole 40 Mg Vial) 40 mg IV DAILY [facility] Last Admin: 09/28/21 08:53 Dose: 40 mg Documented by: Potassium Chloride (Potassium Chloride 20 Meq Tab.Er) 40 meq PO ONETIME ONE Stop: 09/27/21 17:59 Last Admin: 09/27/21 18:14 Dose: 40 meq Documented by: - Exam General: Alert, Oriented Neck: Supple Lungs: Normal Respiratory Effort, Rhonchi Cardiovascular: Regular Rate, Regular Rhythm GI/Abdominal Exam: Soft, Non-Tender, No Distention Extremities: Non-Tender, No Pedal Edema Skin: Warm, Dry, Intact Neurological: No New Focal Deficit - Patient Data Lab Results Last 24 hrs: Laboratory Results - last 24 hr 09/29/21 09/29/21 09/30/21 Range/Units 15:00 18:03 06:06 WBC 7.65 (4.0-11.0) K/uL RBC 5.28 (4.50-5.90) M/uL Hgb 16.1 (13.0-17.0) g/dL Hct 44.8 (38.0-50.0) % MCV 84.8 (80.0-98.0) fL MCH 30.5 (27.0-32.0) pg MCHC 35.9 (31.0-37.0) g/dL RDW Std Deviation 37.6 (28.0-62.0) fl RDW Coeff of Lala 12 (11.0-15.0) % Plt Count 278 (150-400) K/uL MPV 11.30 (7.40-12.00) fL Add Manual Diff YES Neutrophils % (Manual) 66 (48.0-80.0) % Band Neutrophils % 3 % Lymphocytes % (Manual) 29 (16.0-40.0) % Monocytes % (Manual) 2 (0.0-15.0) % Absolute Seg Neuts 5.0 (1.4-5.7) Band Neutrophils # 0.2 Lymphocytes # (Manual) 2.2 (0.6-2.4) Monocytes # (Manual) 0.2 (0.0-0.8) Sodium (136-148) mmol/L Potassium (3.5-5.1) mmol/L Chloride (98-107) mmol/L Carbon Dioxide (21.0-32.0) mmol/L BUN (7.0-18.0) mg/dL Creatinine (0.8-1.3) mg/dL Est Cr Clr Drug Dosing mL/min Estimated GFR (MDRD) ml/min Glucose (74-106) mg/dL POC Glucose 261 H 244 H (70-99) mg/dL Calcium (8.5-10.1) mg/dL Phosphorus (2.6-4.7) mg/dL Magnesium (1.8-2.4) mg/dL Total Bilirubin (0.2-1.0) mg/dL AST (15-37) IU/L ALT (14-63) IU/L Alkaline Phosphatase (46-116) U/L Total Protein (6.4-8.2) g/dL Albumin (3.4-5.0) g/dL Globulin (2.6-4.0) g/dL Albumin/Globulin Ratio (0.9-1.6) 09/30/21 09/30/21 Range/Units 06:06 09:08 WBC (4.0-11.0) K/uL RBC (4.50-5.90) M/uL Hgb (13.0-17.0) g/dL Hct (38.0-50.0) % MCV (80.0-98.0) fL MCH (27.0-32.0) pg MCHC (31.0-37.0) g/dL RDW Std Deviation (28.0-62.0) fl RDW Coeff of Lala (11.0-15.0) % Plt Count (150-400) K/uL MPV (7.40-12.00) fL Add Manual Diff Neutrophils % (Manual) (48.0-80.0) % Band Neutrophils % % Lymphocytes % (Manual) (16.0-40.0) % Monocytes % (Manual) (0.0-15.0) % Absolute Seg Neuts (1.4-5.7) Band Neutrophils # Lymphocytes # (Manual) (0.6-2.4) Monocytes # (Manual) (0.0-0.8) Sodium 134 L (136-148) mmol/L Potassium 3.2 L (3.5-5.1) mmol/L Chloride 98 (98-107) mmol/L Carbon Dioxide 27.2 (21.0-32.0) mmol/L BUN 14 (7.0-18.0) mg/dL Creatinine 0.7 L (0.8-1.3) mg/dL Est Cr Clr Drug Dosing 119.35 mL/min Estimated GFR (MDRD) > 60.0 ml/min Glucose 230 H (74-106) mg/dL POC Glucose 197 H (70-99) mg/dL Calcium 7.9 L (8.5-10.1) mg/dL Phosphorus 3.5 (2.6-4.7) mg/dL Magnesium 2.3 (1.8-2.4) mg/dL Total Bilirubin 0.9 (0.2-1.0) mg/dL AST 32 (15-37) IU/L ALT 47 (14-63) IU/L Alkaline Phosphatase 80 (46-116) U/L Total Protein 7.0 (6.4-8.2) g/dL Albumin 2.4 L (3.4-5.0) g/dL Globulin 4.6 H (2.6-4.0) g/dL Albumin/Globulin Ratio 0.5 L (0.9-1.6) Result Diagrams: 09/30/21 06:06 09/30/21 06:06 Vu Results Last 24 hrs: Microbiology 09/27/21 18:45 Urine Culture - Final Urine Sepsis Event Note - Evaluation Sepsis Screening Result: No Definite Risk - Focused Exam Vital Signs: Vital Signs Temp Resp BP BP Pulse Ox 09/30/21 12:00 36.1 C 23 H 158/57 H 95 09/30/21 11:00 19 156/83 H 93 L 09/30/21 10:00 14 169/88 H 91 L 09/30/21 09:02 153/82 H 09/30/21 09:01 153/82 H 09/30/21 09:00 16 153/82 H 91 L 09/30/21 08:00 36.0 C L 15 152/72 H 90 L 09/30/21 07:00 15 153/84 H 96 09/30/21 06:00 14 149/85 H 91 L 09/30/21 05:00 35.9 C L 16 157/82 H 96 09/30/21 04:00 34 H 145/83 H 92 L 09/30/21 03:00 31 H 157/81 H 94 L - Problem List & Annotations (1) Hypoxia SNOMED Code(s): 343019327 Code(s): R09.02 - HYPOXEMIA Status: Acute Current Visit: Yes (2) Pneumonia due to COVID-19 virus SNOMED Code(s): 811993385069607589 Code(s): U07.1 - COVID-19; J12.82 - PNEUMONIA DUE TO CORONAVIRUS DISEASE 2019 Status: Acute Current Visit: Yes - Problem List Review Problem List Initiated/Reviewed/Updated: Yes - My Orders Last 24 Hours: My Active Orders 10/01/21 05:11 CBC WITH AUTO DIFF [HEME] AM COMPREHENSIVE METABOLIC PN,CMP [CHEM] AM 10/02/21 05:11 CBC WITH AUTO DIFF [HEME] AM COMPREHENSIVE METABOLIC PN,CMP [CHEM] AM - Plan Plan:: 51-year-old male admitted for acute hypoxic respiratory failure secondary to Covid pneumonia COVID pneumonia: continue remdsivir, dexamethason, barcitinib acute hypoxic respiratory failure: on heated high flow NC Lovenox for DVT prophylaxis DM: ssi
[2021-09-30] MEDS: REMDESIVIR 100 MG in Sodium Chloride 0.9% 100 ML IV SCH (21:26)
[2021-10-01] MEDS: Albuterol/Ipratropium 4 GM Inhalation Spray INH SCH ×6 (01:20→21:49)
[2021-10-01 06:22] LABS: BLOOD UREA NITROGEN,BUN 13 mg/dL (7.0-18.0); CARBON DIOXIDE,CO2 28.1 mmol/L (21.0-32.0); CHLORIDE,CL 99 mmol/L (98-107); GLUCOSE RANDOM 221 mg/dL (74-106); POTASSIUM,K 3.5 mmol/L (3.5-5.1); SODIUM,NA 135 mmol/L (136-148)
[2021-10-01] MEDS: Insulin Aspart 100 Units/ML 3 ML Pen SUBCUT SCH ×3 (08:00→17:31)
[2021-10-01] MEDS: Enoxaparin 40 MG/0.4 ML Syringe SUBCUT SCH ×2 (08:23→21:50)
[2021-10-01] MEDS: Lisinopril 10 MG Tab PO SCH (08:24)
[2021-10-01] MEDS: amLODIPine 5 MG Tab PO SCH (08:24)
[2021-10-01] MEDS: Dexamethasone 4 MG Tab PO SCH (08:24)
[2021-10-01] MEDS: Pantoprazole 40 MG Tab.CR PO SCH (08:25)
--- NOTE | 2021-10-01 09:08 | PCM.PN ---
- General Info Date of Service: 10/01/21 - Review of Systems Systems Review Comment:: reports shortness of breath, cough, no fever - Patient Data Vitals - Most Recent: Last Vital Signs Temp 36.4 C 10/01/21 05:00 Pulse 73 09/30/21 19:00 Resp 27 H 10/01/21 05:00 BP 162/92 H 10/01/21 08:24 Pulse Ox 91 L 10/01/21 05:00 Weight - Most Recent: 94.801 kg I&O - Last 24 Hours: Intake & Output 09/30/21 10/01/21 10/01/21 22:59 06:59 14:59 Intake Total 5120 1000 Output Total 5500 1200 Balance -380 -200 Lab Results Last 24 Hours: Laboratory Results - last 24 hr 09/30/21 09/30/21 09/30/21 Range/Units 09:08 15:27 18:02 WBC (4.0-11.0) K/uL RBC (4.50-5.90) M/uL Hgb (13.0-17.0) g/dL Hct (38.0-50.0) % MCV (80.0-98.0) fL MCH (27.0-32.0) pg MCHC (31.0-37.0) g/dL RDW Std Deviation (28.0-62.0) fl RDW Coeff of Lala (11.0-15.0) % Plt Count (150-400) K/uL MPV (7.40-12.00) fL Add Manual Diff Neutrophils % (Manual) (48.0-80.0) % Band Neutrophils % % Lymphocytes % (Manual) (16.0-40.0) % Monocytes % (Manual) (0.0-15.0) % Nucleated RBC % /100WBC Absolute Seg Neuts (1.4-5.7) Band Neutrophils # Lymphocytes # (Manual) (0.6-2.4) Monocytes # (Manual) (0.0-0.8) Nucleated RBCs # K/uL Sodium (136-148) mmol/L Potassium (3.5-5.1) mmol/L Chloride (98-107) mmol/L Carbon Dioxide (21.0-32.0) mmol/L BUN (7.0-18.0) mg/dL Creatinine (0.8-1.3) mg/dL Est Cr Clr Drug Dosing mL/min Estimated GFR (MDRD) ml/min Glucose (74-106) mg/dL POC Glucose 197 H 306 H 326 H (70-99) mg/dL Calcium (8.5-10.1) mg/dL Total Bilirubin (0.2-1.0) mg/dL AST (15-37) IU/L ALT (14-63) IU/L Alkaline Phosphatase (46-116) U/L Total Protein (6.4-8.2) g/dL Albumin (3.4-5.0) g/dL Globulin (2.6-4.0) g/dL Albumin/Globulin Ratio (0.9-1.6) 10/01/21 10/01/21 Range/Units 05:35 05:35 WBC 9.42 (4.0-11.0) K/uL RBC 5.18 (4.50-5.90) M/uL Hgb 16.1 (13.0-17.0) g/dL Hct 43.9 (38.0-50.0) % MCV 84.7 (80.0-98.0) fL MCH 31.1 (27.0-32.0) pg MCHC 36.7 (31.0-37.0) g/dL RDW Std Deviation 37.6 (28.0-62.0) fl RDW Coeff of Lala 12 (11.0-15.0) % Plt Count 315 (150-400) K/uL MPV 11.10 (7.40-12.00) fL Add Manual Diff YES Neutrophils % (Manual) 63 (48.0-80.0) % Band Neutrophils % 2 % Lymphocytes % (Manual) 26 (16.0-40.0) % Monocytes % (Manual) 9 (0.0-15.0) % Nucleated RBC % 0.0 /100WBC Absolute Seg Neuts 5.9 H (1.4-5.7) Band Neutrophils # 0.2 Lymphocytes # (Manual) 2.4 (0.6-2.4) Monocytes # (Manual) 0.8 (0.0-0.8) Nucleated RBCs # 0 K/uL Sodium 135 L (136-148) mmol/L Potassium 3.5 (3.5-5.1) mmol/L Chloride 99 (98-107) mmol/L Carbon Dioxide 28.1 (21.0-32.0) mmol/L BUN 13 (7.0-18.0) mg/dL Creatinine 0.7 L (0.8-1.3) mg/dL Est Cr Clr Drug Dosing 119.35 mL/min Estimated GFR (MDRD) > 60.0 ml/min Glucose 221 H (74-106) mg/dL POC Glucose (70-99) mg/dL Calcium 8.3 L (8.5-10.1) mg/dL Total Bilirubin 0.9 (0.2-1.0) mg/dL AST 37 (15-37) IU/L ALT 56 (14-63) IU/L Alkaline Phosphatase 71 (46-116) U/L Total Protein 6.6 (6.4-8.2) g/dL Albumin 2.6 L (3.4-5.0) g/dL Globulin 4.0 (2.6-4.0) g/dL Albumin/Globulin Ratio 0.7 L (0.9-1.6) Vu Results Last 24 Hours: Microbiology 09/27/21 18:45 Urine Culture - Final Urine Med Orders - Current: Current Medications Albuterol/Ipratropium (Albuterol/Ipratropium 3.0-0.5 Mg/3 Ml Neb Soln) 3 ml NEB Q4HRRT PRN PRN Reason: Shortness Of Breath/wheezing Albuterol/Ipratropium (Albuterol/Ipratropium 4 Gm Inhalation [place]) 0 gm INH Q4H [facility] Last Admin: 10/01/21 05:19 Dose: 1 puff Documented by: Amlodipine Besylate (Amlodipine 5 Mg Tab) 10 mg PO DAILY [facility] Last Admin: 10/01/21 08:24 Dose: 10 mg Documented by: Baricitinib (Baricitinib 2 Mg Tab) 4 mg PO DAILY [facility] Last Admin: 10/01/21 08:25 Dose: 4 mg Documented by: Dexamethasone (Dexamethasone 4 Mg Tab) 6 mg PO DAILY [facility] Last Admin: 10/01/21 08:24 Dose: 6 mg Documented by: Dextrose/Water (50% Dextrose In Water 50 Ml Syringe) 50 ml IVPUSH ASDIRECTED PRN PRN Reason: Hypoglycemia Enoxaparin Sodium (Enoxaparin 40 Mg/0.4 Ml Syringe) 40 mg SUBCUT BID [facility] Last Admin: 10/01/21 08:23 Dose: 40 mg Documented by: Glucagon (Glucagon,Human Recombinant 1 Mg Vial) 1 mg IM ASDIRECTED PRN PRN Reason: Hypoglycemia Remdesivir 100 mg/ Sodium (Chloride) 100 mls @ 100 mls/hr IV Q24H [facility] Stop: 10/01/21 22:29 Last Admin: 09/30/21 21:26 Dose: 100 mls/hr Documented by: Insulin Aspart (Insulin Aspart 100 Units/Ml 3 Ml Pen) 0 unit SUBCUT TIDAC [facility]; Protocol Last Admin: 09/30/21 18:22 Dose: 8 units Documented by: Lisinopril (Lisinopril 10 Mg Tab) 40 mg PO DAILY [facility] Last Admin: 10/01/21 08:24 Dose: 40 mg Documented by: Ondansetron HCl (Ondansetron 4 Mg/2 Ml Sdv) 4 mg IVPUSH Q4H PRN PRN Reason: Nausea/Vomiting Pantoprazole Sodium (Pantoprazole 40 Mg Tab.Cr) 40 mg PO DAILY [facility] Last Admin: 10/01/21 08:25 Dose: 40 mg Documented by: Sodium Chloride (Sodium Chloride 0.9% 10 Ml Syringe) 10 ml FLUSH ASDIRECTED PRN PRN Reason: Keep Vein Open Last Admin: 09/27/21 16:36 Dose: 10 ml Documented by: Sodium Chloride (Sodium Chloride 0.9% 2.5 Ml Syringe) 2.5 ml FLUSH ASDIRECTED PRN PRN Reason: Keep Vein Open Last Admin: 09/27/21 16:37 Dose: 2.5 ml Documented by: Discontinued Medications Acetaminophen (Acetaminophen 500 Mg Tab) 1,000 mg PO ONETIME ONE Stop: 09/27/21 17:58 Last Admin: 09/27/21 18:13 Dose: 1,000 mg Documented by: Aspirin (Aspirin 81 Mg Tab.Chew) 324 mg PO ONETIME ONE Stop: 09/27/21 16:18 Last Admin: 09/27/21 16:37 Dose: 324 mg Documented by: Dexamethasone (Dexamethasone 10 Mg/Ml Sdv) 6 mg IVPUSH ONETIME ONE Stop: 09/27/21 16:30 Last Admin: 09/27/21 16:36 Dose: 6 mg Documented by: Sodium Chloride (Normal Saline) 1,000 mls @ 100 mls/hr IV STAT ONE Stop: 09/28/21 02:28 Last Admin: 09/27/21 16:36 Dose: 100 mls/hr Documented by: Sodium Chloride (Normal Saline) 1,000 mls @ 125 mls/hr IV STAT ONE Stop: 09/28/21 01:56 Last Admin: 09/27/21 18:13 Dose: 125 mls/hr Documented by: Remdesivir 200 mg/ Sodium (Chloride) 250 mls @ 250 mls/hr IV ONETIME ONE Stop: 09/27/21 17:59 Last Admin: 09/27/21 19:04 Dose: 250 mls/hr Documented by: Iopamidol (Iopamidol 755 Mg/Ml 500 Ml Multipack Bottle) 100 ml IVPUSH ONETIME STA Stop: 09/27/21 18:54 Last Admin: 09/27/21 18:53 Dose: 100 ml Documented by: Ketorolac Tromethamine (Ketorolac 30 Mg/Ml Sdv) 30 mg IVPUSH ONETIME ONE Stop: 09/27/21 17:58 Last Admin: 09/27/21 18:14 Dose: 30 mg Documented by: Non-Formulary Medication (Lisinopril [Lisinopril]) 40 mg PO DAILY [facility] Last Admin: 09/28/21 00:35 Dose: Not Given Documented by: Pantoprazole Sodium (Pantoprazole 40 Mg Vial) 40 mg IV DAILY [facility] Last Admin: 09/28/21 08:53 Dose: 40 mg Documented by: Potassium Chloride (Potassium Chloride 20 Meq Tab.Er) 40 meq PO ONETIME ONE Stop: 09/27/21 17:59 Last Admin: 09/27/21 18:14 Dose: 40 meq Documented by: - Exam General: Alert, Oriented Neck: Supple Lungs: Normal Respiratory Effort, Rhonchi Cardiovascular: Regular Rate, Regular Rhythm GI/Abdominal Exam: Normal Bowel Sounds, Soft, Non-Tender Extremities: Non-Tender, No Pedal Edema Skin: Warm, Dry, Intact Neurological: No New Focal Deficit - Patient Data Lab Results Last 24 hrs: Laboratory Results - last 24 hr 09/30/21 09/30/21 09/30/21 Range/Units 09:08 15:27 18:02 WBC (4.0-11.0) K/uL RBC (4.50-5.90) M/uL Hgb (13.0-17.0) g/dL Hct (38.0-50.0) % MCV (80.0-98.0) fL MCH (27.0-32.0) pg MCHC (31.0-37.0) g/dL RDW Std Deviation (28.0-62.0) fl RDW Coeff of Lala (11.0-15.0) % Plt Count (150-400) K/uL MPV (7.40-12.00) fL Add Manual Diff Neutrophils % (Manual) (48.0-80.0) % Band Neutrophils % % Lymphocytes % (Manual) (16.0-40.0) % Monocytes % (Manual) (0.0-15.0) % Nucleated RBC % /100WBC Absolute Seg Neuts (1.4-5.7) Band Neutrophils # Lymphocytes # (Manual) (0.6-2.4) Monocytes # (Manual) (0.0-0.8) Nucleated RBCs # K/uL Sodium (136-148) mmol/L Potassium (3.5-5.1) mmol/L Chloride (98-107) mmol/L Carbon Dioxide (21.0-32.0) mmol/L BUN (7.0-18.0) mg/dL Creatinine (0.8-1.3) mg/dL Est Cr Clr Drug Dosing mL/min Estimated GFR (MDRD) ml/min Glucose (74-106) mg/dL POC Glucose 197 H 306 H 326 H (70-99) mg/dL Calcium (8.5-10.1) mg/dL Total Bilirubin (0.2-1.0) mg/dL AST (15-37) IU/L ALT (14-63) IU/L Alkaline Phosphatase (46-116) U/L Total Protein (6.4-8.2) g/dL Albumin (3.4-5.0) g/dL Globulin (2.6-4.0) g/dL Albumin/Globulin Ratio (0.9-1.6) 10/01/21 10/01/21 Range/Units 05:35 05:35 WBC 9.42 (4.0-11.0) K/uL RBC 5.18 (4.50-5.90) M/uL Hgb 16.1 (13.0-17.0) g/dL Hct 43.9 (38.0-50.0) % MCV 84.7 (80.0-98.0) fL MCH 31.1 (27.0-32.0) pg MCHC 36.7 (31.0-37.0) g/dL RDW Std Deviation 37.6 (28.0-62.0) fl RDW Coeff of Lala 12 (11.0-15.0) % Plt Count 315 (150-400) K/uL MPV 11.10 (7.40-12.00) fL Add Manual Diff YES Neutrophils % (Manual) 63 (48.0-80.0) % Band Neutrophils % 2 % Lymphocytes % (Manual) 26 (16.0-40.0) % Monocytes % (Manual) 9 (0.0-15.0) % Nucleated RBC % 0.0 /100WBC Absolute Seg Neuts 5.9 H (1.4-5.7) Band Neutrophils # 0.2 Lymphocytes # (Manual) 2.4 (0.6-2.4) Monocytes # (Manual) 0.8 (0.0-0.8) Nucleated RBCs # 0 K/uL Sodium 135 L (136-148) mmol/L Potassium 3.5 (3.5-5.1) mmol/L Chloride 99 (98-107) mmol/L Carbon Dioxide 28.1 (21.0-32.0) mmol/L BUN 13 (7.0-18.0) mg/dL Creatinine 0.7 L (0.8-1.3) mg/dL Est Cr Clr Drug Dosing 119.35 mL/min Estimated GFR (MDRD) > 60.0 ml/min Glucose 221 H (74-106) mg/dL POC Glucose (70-99) mg/dL Calcium 8.3 L (8.5-10.1) mg/dL Total Bilirubin 0.9 (0.2-1.0) mg/dL AST 37 (15-37) IU/L ALT 56 (14-63) IU/L Alkaline Phosphatase 71 (46-116) U/L Total Protein 6.6 (6.4-8.2) g/dL Albumin 2.6 L (3.4-5.0) g/dL Globulin 4.0 (2.6-4.0) g/dL Albumin/Globulin Ratio 0.7 L (0.9-1.6) Result Diagrams: 10/01/21 05:35 10/01/21 05:35 Vu Results Last 24 hrs: Microbiology 09/27/21 18:45 Urine Culture - Final Urine Sepsis Event Note - Evaluation Sepsis Screening Result: No Definite Risk - Focused Exam Vital Signs: Vital Signs Temp Resp BP BP Pulse Ox 10/01/21 08:24 162/92 H 10/01/21 05:00 36.4 C 27 H 156/85 H 91 L 10/01/21 04:00 19 164/81 H 92 L 10/01/21 03:00 28 H 158/82 H 90 L 10/01/21 02:00 17 161/86 H 93 L 10/01/21 01:00 18 151/81 H 91 L 10/01/21 00:00 36.3 C 14 161/91 H 91 L 09/30/21 23:00 34 H 140/82 90 L 09/30/21 22:00 26 H 150/87 H 91 L - Problem List & Annotations (1) Hypoxia SNOMED Code(s): 731433536 Code(s): R09.02 - HYPOXEMIA Status: Acute Current Visit: Yes (2) Pneumonia due to COVID-19 virus SNOMED Code(s): 472026963522046330 Code(s): U07.1 - COVID-19; J12.82 - PNEUMONIA DUE TO CORONAVIRUS DISEASE 2019 Status: Acute Current Visit: Yes - Problem List Review Problem List Initiated/Reviewed/Updated: Yes - My Orders Last 24 Hours: My Active Orders 10/02/21 05:11 CBC WITH AUTO DIFF [HEME] AM COMPREHENSIVE METABOLIC PN,CMP [CHEM] AM - Plan Plan:: 51-year-old male admitted for acute hypoxic respiratory failure secondary to Covid pneumonia COVID pneumonia: continue remdsivir, dexamethason, barcitinib acute hypoxic respiratory failure: on heated high flow NC 60L at 50% FIO2 Lovenox for DVT prophylaxis DM: ssi
[2021-10-01] MEDS ORDERED: guaiFENesin 100 MG/5 ML Soln 5 ML UD Cup PO PRN (16:00)
[2021-10-01] MEDS: REMDESIVIR 100 MG in Sodium Chloride 0.9% 100 ML IV SCH (21:48)
[2021-10-01] MEDS: Melatonin 3 MG Tab PO PRN (22:03)
[2021-10-01] MEDS: Acetaminophen 325 MG Tab PO PRN (22:05)
[2021-10-02] MEDS: Albuterol/Ipratropium 4 GM Inhalation Spray INH SCH ×6 (01:19→20:45)
[2021-10-02 06:52] LABS: BLOOD UREA NITROGEN,BUN 13 mg/dL (7.0-18.0); CARBON DIOXIDE,CO2 30.4 mmol/L (21.0-32.0); CHLORIDE,CL 98 mmol/L (98-107); GLUCOSE RANDOM 203 mg/dL (74-106); POTASSIUM,K 3.5 mmol/L (3.5-5.1); SODIUM,NA 136 mmol/L (136-148)
[2021-10-02] MEDS: Dexamethasone 4 MG Tab PO SCH (08:16)
[2021-10-02] MEDS: Lisinopril 10 MG Tab PO SCH (08:16)
[2021-10-02] MEDS: Enoxaparin 40 MG/0.4 ML Syringe SUBCUT SCH ×2 (08:17→20:36)
[2021-10-02] MEDS: amLODIPine 5 MG Tab PO SCH (08:17)
[2021-10-02] MEDS: Pantoprazole 40 MG Tab.CR PO SCH (08:17)
[2021-10-02] MEDS: Insulin Aspart 100 Units/ML 3 ML Pen SUBCUT SCH ×3 (09:00→18:28)
--- NOTE | 2021-10-02 16:42 | PCM.PN ---
- General Info Date of Service: 10/02/21 Admission Dx/Problem (Free Text): Admission Diagnosis/Problem Admission Diagnosis/Problem Hypoxia Subjective Update: Patient seen at bedside, feels much better today, currently on 5 L of nasal cannula, patient was instructed not to take his oxygen off on his own as was reported by the bedside nurse. Appetite is good is urinating well Functional Status: Reports: Tolerating Diet, Urinating. Denies: Ambulating - Review of Systems General: Reports: Fatigue. Denies: Weakness, Malaise, Chills Pulmonary: Reports: Shortness of Breath, Cough, Sputum. Denies: Pleuritic Chest Pain Cardiovascular: Reports: Dyspnea on Exertion. Denies: Chest Pain, Palpitations Gastrointestinal: Denies: Abdominal Pain, Constipation, Decreased Appetite Genitourinary: Denies: Dysuria, Frequency, Burning Musculoskeletal: Denies: Neck Pain, Shoulder Pain, Arm Pain Skin: Denies: Cyanosis, Jaundice, Mottled - Patient Data Vitals - Most Recent: Last Vital Signs Temp 36.2 C 10/02/21 12:00 Pulse 73 09/30/21 19:00 Resp 29 H 10/02/21 15:00 BP 159/96 H 10/02/21 15:00 Pulse Ox 91 L 10/02/21 15:00 Weight - Most Recent: 94.801 kg I&O - Last 24 Hours: Intake & Output 10/02/21 10/02/21 10/02/21 06:59 14:59 22:59 Intake Total 1800 4600 Output Total 2600 4900 Balance -800 -300 Lab Results Last 24 Hours: Laboratory Results - last 24 hr 10/01/21 10/02/21 10/02/21 Range/Units 17:20 05:40 05:40 WBC 9.63 (4.0-11.0) K/uL RBC 5.13 (4.50-5.90) M/uL Hgb 15.9 (13.0-17.0) g/dL Hct 43.8 (38.0-50.0) % MCV 85.4 (80.0-98.0) fL MCH 31.0 (27.0-32.0) pg MCHC 36.3 (31.0-37.0) g/dL RDW Std Deviation 38.1 (28.0-62.0) fl RDW Coeff of Lala 12 (11.0-15.0) % Plt Count 328 (150-400) K/uL MPV 11.30 (7.40-12.00) fL Neut % (Auto) 69.9 (48.0-80.0) % Lymph % (Auto) 17.9 (16.0-40.0) % [place] % (Auto) 12.1 (0.0-15.0) % Eos % (Auto) 0.0 (0.0-7.0) % Baso % (Auto) 0.1 (0.0-1.5) % Neut # (Auto) 6.7 H (1.4-5.7) K/uL Lymph # (Auto) 1.7 (0.6-2.4) K/uL [place] # (Auto) 1.2 H (0.0-0.8) K/uL Eos # (Auto) 0.0 (0.0-0.7) K/uL Baso # (Auto) 0.0 (0.0-0.1) K/uL Nucleated RBC % 0.0 /100WBC Nucleated RBCs # 0 K/uL Sodium 136 (136-148) mmol/L Potassium 3.5 (3.5-5.1) mmol/L Chloride 98 (98-107) mmol/L Carbon Dioxide 30.4 (21.0-32.0) mmol/L BUN 13 (7.0-18.0) mg/dL Creatinine 0.8 (0.8-1.3) mg/dL Est Cr Clr Drug Dosing 104.43 mL/min Estimated GFR (MDRD) > 60.0 ml/min Glucose 203 H (74-106) mg/dL POC Glucose 295 H (70-99) mg/dL Calcium 8.0 L (8.5-10.1) mg/dL Total Bilirubin 0.8 (0.2-1.0) mg/dL AST 35 (15-37) IU/L ALT 57 (14-63) IU/L Alkaline Phosphatase 75 (46-116) U/L Total Protein 6.8 (6.4-8.2) g/dL Albumin 2.3 L (3.4-5.0) g/dL Globulin 4.5 H (2.6-4.0) g/dL Albumin/Globulin Ratio 0.5 L (0.9-1.6) 10/02/21 Range/Units 08:26 WBC (4.0-11.0) K/uL RBC (4.50-5.90) M/uL Hgb (13.0-17.0) g/dL Hct (38.0-50.0) % MCV (80.0-98.0) fL MCH (27.0-32.0) pg MCHC (31.0-37.0) g/dL RDW Std Deviation (28.0-62.0) fl RDW Coeff of Lala (11.0-15.0) % Plt Count (150-400) K/uL MPV (7.40-12.00) fL Neut % (Auto) (48.0-80.0) % Lymph % (Auto) (16.0-40.0) % [place] % (Auto) (0.0-15.0) % Eos % (Auto) (0.0-7.0) % Baso % (Auto) (0.0-1.5) % Neut # (Auto) (1.4-5.7) K/uL Lymph # (Auto) (0.6-2.4) K/uL [place] # (Auto) (0.0-0.8) K/uL Eos # (Auto) (0.0-0.7) K/uL Baso # (Auto) (0.0-0.1) K/uL Nucleated RBC % /100WBC Nucleated RBCs # K/uL Sodium (136-148) mmol/L Potassium (3.5-5.1) mmol/L Chloride (98-107) mmol/L Carbon Dioxide (21.0-32.0) mmol/L BUN (7.0-18.0) mg/dL Creatinine (0.8-1.3) mg/dL Est Cr Clr Drug Dosing mL/min Estimated GFR (MDRD) ml/min Glucose (74-106) mg/dL POC Glucose 193 H (70-99) mg/dL Calcium (8.5-10.1) mg/dL Total Bilirubin (0.2-1.0) mg/dL AST (15-37) IU/L ALT (14-63) IU/L Alkaline Phosphatase (46-116) U/L Total Protein (6.4-8.2) g/dL Albumin (3.4-5.0) g/dL Globulin (2.6-4.0) g/dL Albumin/Globulin Ratio (0.9-1.6) Med Orders - Current: Current Medications Acetaminophen (Acetaminophen 325 Mg Tab) 650 mg PO Q6H PRN PRN Reason: Pain/Fever Last Admin: 10/01/21 22:05 Dose: 650 mg Documented by: Albuterol/Ipratropium (Albuterol/Ipratropium 3.0-0.5 Mg/3 Ml Neb Soln) 3 ml NEB Q4HRRT PRN PRN Reason: Shortness Of Breath/wheezing Albuterol/Ipratropium (Albuterol/Ipratropium 4 Gm Inhalation [place]) 0 gm INH Q4H [facility] Last Admin: 10/02/21 14:14 Dose: 1 puff Documented by: Amlodipine Besylate (Amlodipine 5 Mg Tab) 10 mg PO DAILY [facility] Last Admin: 10/02/21 08:17 Dose: 10 mg Documented by: Baricitinib (Baricitinib 2 Mg Tab) 4 mg PO DAILY [facility] Last Admin: 10/02/21 08:17 Dose: 4 mg Documented by: Dexamethasone (Dexamethasone 4 Mg Tab) 6 mg PO DAILY [facility] Last Admin: 10/02/21 08:16 Dose: 6 mg Documented by: Dextrose/Water (50% Dextrose In Water 50 Ml Syringe) 50 ml IVPUSH ASDIRECTED PRN PRN Reason: Hypoglycemia Enoxaparin Sodium (Enoxaparin 40 Mg/0.4 Ml Syringe) 40 mg SUBCUT BID [facility] Last Admin: 10/02/21 08:17 Dose: 40 mg Documented by: Glucagon (Glucagon,Human Recombinant 1 Mg Vial) 1 mg IM ASDIRECTED PRN PRN Reason: Hypoglycemia Guaifenesin (Guaifenesin 100 Mg/5 Ml Soln 5 Ml Ud Cup) 200 mg PO Q6H PRN PRN Reason: Cough Insulin Aspart (Insulin Aspart 100 Units/Ml 3 Ml Pen) 0 unit SUBCUT TIDAC [facility]; Protocol Last Admin: 10/02/21 12:00 Dose: 2 units Documented by: Lisinopril (Lisinopril 10 Mg Tab) 40 mg PO DAILY [facility] Last Admin: 10/02/21 08:16 Dose: 40 mg Documented by: Melatonin (Melatonin 3 Mg Tab) 6 mg PO BEDTIME PRN PRN Reason: Sleep Last Admin: 10/01/21 22:03 Dose: 6 mg Documented by: Ondansetron HCl (Ondansetron 4 Mg/2 Ml Sdv) 4 mg IVPUSH Q4H PRN PRN Reason: Nausea/Vomiting Pantoprazole Sodium (Pantoprazole 40 Mg Tab.Cr) 40 mg PO DAILY [facility] Last Admin: 10/02/21 08:17 Dose: 40 mg Documented by: Sodium Chloride (Sodium Chloride 0.9% 10 Ml Syringe) 10 ml FLUSH ASDIRECTED PRN PRN Reason: Keep Vein Open Last Admin: 09/27/21 16:36 Dose: 10 ml Documented by: Sodium Chloride (Sodium Chloride 0.9% 2.5 Ml Syringe) 2.5 ml FLUSH ASDIRECTED PRN PRN Reason: Keep Vein Open Last Admin: 09/27/21 16:37 Dose: 2.5 ml Documented by: Discontinued Medications Acetaminophen (Acetaminophen 500 Mg Tab) 1,000 mg PO ONETIME ONE Stop: 09/27/21 17:58 Last Admin: 09/27/21 18:13 Dose: 1,000 mg Documented by: Aspirin (Aspirin 81 Mg Tab.Chew) 324 mg PO ONETIME ONE Stop: 09/27/21 16:18 Last Admin: 09/27/21 16:37 Dose: 324 mg Documented by: Dexamethasone (Dexamethasone 10 Mg/Ml Sdv) 6 mg IVPUSH ONETIME ONE Stop: 09/27/21 16:30 Last Admin: 09/27/21 16:36 Dose: 6 mg Documented by: Sodium Chloride (Normal Saline) 1,000 mls @ 100 mls/hr IV STAT ONE Stop: 09/28/21 02:28 Last Admin: 09/27/21 16:36 Dose: 100 mls/hr Documented by: Sodium Chloride (Normal Saline) 1,000 mls @ 125 mls/hr IV STAT ONE Stop: 09/28/21 01:56 Last Admin: 09/27/21 18:13 Dose: 125 mls/hr Documented by: Remdesivir 200 mg/ Sodium (Chloride) 250 mls @ 250 mls/hr IV ONETIME ONE Stop: 09/27/21 17:59 Last Admin: 09/27/21 19:04 Dose: 250 mls/hr Documented by: Remdesivir 100 mg/ Sodium (Chloride) 100 mls @ 100 mls/hr IV Q24H [facility] Stop: 10/01/21 22:29 Last Admin: 10/01/21 21:48 Dose: 100 mls/hr Documented by: Iopamidol (Iopamidol 755 Mg/Ml 500 Ml Multipack Bottle) 100 ml IVPUSH ONETIME [facility] Stop: 09/27/21 18:54 Last Admin: 09/27/21 18:53 Dose: 100 ml Documented by: Ketorolac Tromethamine (Ketorolac 30 Mg/Ml Sdv) 30 mg IVPUSH ONETIME ONE Stop: 09/27/21 17:58 Last Admin: 09/27/21 18:14 Dose: 30 mg Documented by: Non-Formulary Medication (Lisinopril [Lisinopril]) 40 mg PO DAILY [facility] Last Admin: 09/28/21 00:35 Dose: Not Given Documented by: Pantoprazole Sodium (Pantoprazole 40 Mg Vial) 40 mg IV DAILY [facility] Last Admin: 09/28/21 08:53 Dose: 40 mg Documented by: Potassium Chloride (Potassium Chloride 20 Meq Tab.Er) 40 meq PO ONETIME ONE Stop: 09/27/21 17:59 Last Admin: 09/27/21 18:14 Dose: 40 meq Documented by: - Exam Quality Assessment: Supplemental Oxygen General: Alert, Oriented Lungs: Normal Respiratory Effort, Decreased Breath Sounds, Rales. No: Crackles Cardiovascular: Regular Rate, Regular Rhythm GI/Abdominal Exam: Normal Bowel Sounds, Soft, Non-Tender Extremities: Normal Inspection, Normal Range of Motion - Patient Data Lab Results Last 24 hrs: Laboratory Results - last 24 hr 10/01/21 10/02/21 10/02/21 Range/Units 17:20 05:40 05:40 WBC 9.63 (4.0-11.0) K/uL RBC 5.13 (4.50-5.90) M/uL Hgb 15.9 (13.0-17.0) g/dL Hct 43.8 (38.0-50.0) % MCV 85.4 (80.0-98.0) fL MCH 31.0 (27.0-32.0) pg MCHC 36.3 (31.0-37.0) g/dL RDW Std Deviation 38.1 (28.0-62.0) fl RDW Coeff of Lala 12 (11.0-15.0) % Plt Count 328 (150-400) K/uL MPV 11.30 (7.40-12.00) fL Neut % (Auto) 69.9 (48.0-80.0) % Lymph % (Auto) 17.9 (16.0-40.0) % [place] % (Auto) 12.1 (0.0-15.0) % Eos % (Auto) 0.0 (0.0-7.0) % Baso % (Auto) 0.1 (0.0-1.5) % Neut # (Auto) 6.7 H (1.4-5.7) K/uL Lymph # (Auto) 1.7 (0.6-2.4) K/uL [place] # (Auto) 1.2 H (0.0-0.8) K/uL Eos # (Auto) 0.0 (0.0-0.7) K/uL Baso # (Auto) 0.0 (0.0-0.1) K/uL Nucleated RBC % 0.0 /100WBC Nucleated RBCs # 0 K/uL Sodium 136 (136-148) mmol/L Potassium 3.5 (3.5-5.1) mmol/L Chloride 98 (98-107) mmol/L Carbon Dioxide 30.4 (21.0-32.0) mmol/L BUN 13 (7.0-18.0) mg/dL Creatinine 0.8 (0.8-1.3) mg/dL Est Cr Clr Drug Dosing 104.43 mL/min Estimated GFR (MDRD) > 60.0 ml/min Glucose 203 H (74-106) mg/dL POC Glucose 295 H (70-99) mg/dL Calcium 8.0 L (8.5-10.1) mg/dL Total Bilirubin 0.8 (0.2-1.0) mg/dL AST 35 (15-37) IU/L ALT 57 (14-63) IU/L Alkaline Phosphatase 75 (46-116) U/L Total Protein 6.8 (6.4-8.2) g/dL Albumin 2.3 L (3.4-5.0) g/dL Globulin 4.5 H (2.6-4.0) g/dL Albumin/Globulin Ratio 0.5 L (0.9-1.6) 10/02/21 Range/Units 08:26 WBC (4.0-11.0) K/uL RBC (4.50-5.90) M/uL Hgb (13.0-17.0) g/dL Hct (38.0-50.0) % MCV (80.0-98.0) fL MCH (27.0-32.0) pg MCHC (31.0-37.0) g/dL RDW Std Deviation (28.0-62.0) fl RDW Coeff of Lala (11.0-15.0) % Plt Count (150-400) K/uL MPV (7.40-12.00) fL Neut % (Auto) (48.0-80.0) % Lymph % (Auto) (16.0-40.0) % [place] % (Auto) (0.0-15.0) % Eos % (Auto) (0.0-7.0) % Baso % (Auto) (0.0-1.5) % Neut # (Auto) (1.4-5.7) K/uL Lymph # (Auto) (0.6-2.4) K/uL [place] # (Auto) (0.0-0.8) K/uL Eos # (Auto) (0.0-0.7) K/uL Baso # (Auto) (0.0-0.1) K/uL Nucleated RBC % /100WBC Nucleated RBCs # K/uL Sodium (136-148) mmol/L Potassium (3.5-5.1) mmol/L Chloride (98-107) mmol/L Carbon Dioxide (21.0-32.0) mmol/L BUN (7.0-18.0) mg/dL Creatinine (0.8-1.3) mg/dL Est Cr Clr Drug Dosing mL/min Estimated GFR (MDRD) ml/min Glucose (74-106) mg/dL POC Glucose 193 H (70-99) mg/dL Calcium (8.5-10.1) mg/dL Total Bilirubin (0.2-1.0) mg/dL AST (15-37) IU/L ALT (14-63) IU/L Alkaline Phosphatase (46-116) U/L Total Protein (6.4-8.2) g/dL Albumin (3.4-5.0) g/dL Globulin (2.6-4.0) g/dL Albumin/Globulin Ratio (0.9-1.6) Result Diagrams: 10/02/21 05:40 10/02/21 05:40 Sepsis Event Note - Evaluation Sepsis Screening Result: No Definite Risk - Focused Exam Vital Signs: Vital Signs Temp Resp BP BP Pulse Ox Pulse Ox 10/02/21 15:00 29 H 159/96 H 91 L 10/02/21 14:00 26 H 167/93 H 96 10/02/21 12:00 36.2 C 25 H 164/96 H 89 L 10/02/21 11:00 21 H 154/91 H 93 L 10/02/21 10:00 19 156/90 H 91 L 91 L 10/02/21 09:00 24 H 140/83 89 L 10/02/21 08:17 164/96 H 10/02/21 08:16 164/96 H 10/02/21 08:00 36.3 C 18 164/96 H 91 L 10/02/21 07:00 25 H 142/75 H 89 L 10/02/21 06:00 15 161/86 H 93 L 10/02/21 05:00 16 174/104 H 94 L 94 L - Problem List & Annotations (1) HTN (hypertension) SNOMED Code(s): 95841360 Code(s): I10 - ESSENTIAL (PRIMARY) HYPERTENSION Status: Acute Current Visit: Yes (2) Hypokalemia SNOMED Code(s): 76778522 Code(s): E87.6 - HYPOKALEMIA Status: Acute Current Visit: Yes (3) Pneumonia due to COVID-19 virus SNOMED Code(s): 655490194899151718 Code(s): U07.1 - COVID-19; J12.82 - PNEUMONIA DUE TO CORONAVIRUS DISEASE 2019 Status: Acute Current Visit: Yes (4) Diabetes mellitus SNOMED Code(s): 62411833 Code(s): E11.9 - TYPE 2 DIABETES MELLITUS WITHOUT COMPLICATIONS Status: Acute Current Visit: No Qualifiers: Diabetes mellitus type: type 2 Diabetes mellitus director manufacturing engineering insulin use: without director manufacturing engineering use Diabetes mellitus complication status: with hyperglycemia Qualified Code(s): E11.65 - Type 2 diabetes mellitus with hyperglycemia - Problem List Review Problem List Initiated/Reviewed/Updated: Yes - My Orders Last 24 Hours: My Active Orders 10/02/21 16:40 Transfer Patient (Change bed) [ADT] Routine - Plan Plan:: 51-year-old male admitted for acute hypoxic respiratory failure secondary to Covid pneumonia COVID pneumonia: cont dexamethason, barcitinib, finished remdesivir yesterday acute hypoxic respiratory failure: Has been weaned off the heated high flow currently on regular nasal cannula Lovenox for DVT prophylaxis DM: ssi
[2021-10-02] MEDS: Melatonin 3 MG Tab PO PRN (20:37)
[2021-10-02] MEDS: Acetaminophen 325 MG Tab PO PRN (20:37)
[2021-10-03] MEDS: Albuterol/Ipratropium 4 GM Inhalation Spray INH SCH ×6 (01:01→21:15)
[2021-10-03 07:33] LABS: BLOOD UREA NITROGEN,BUN 15 mg/dL (7.0-18.0); CARBON DIOXIDE,CO2 27.2 mmol/L (21.0-32.0); CHLORIDE,CL 101 mmol/L (98-107); GLUCOSE RANDOM 212 mg/dL (74-106); POTASSIUM,K 3.9 mmol/L (3.5-5.1); SODIUM,NA 135 mmol/L (136-148)
[2021-10-03] MEDS: Enoxaparin 40 MG/0.4 ML Syringe SUBCUT SCH ×2 (08:27→21:14)
[2021-10-03] MEDS: amLODIPine 5 MG Tab PO SCH (08:27)
[2021-10-03] MEDS: Pantoprazole 40 MG Tab.CR PO SCH (08:27)
[2021-10-03] MEDS: Dexamethasone 4 MG Tab PO SCH (08:27)
[2021-10-03] MEDS: Lisinopril 10 MG Tab PO SCH (08:28)
[2021-10-03] MEDS: Insulin Aspart 100 Units/ML 3 ML Pen SUBCUT SCH ×3 (09:15→18:19)
--- NOTE | 2021-10-03 12:19 | PCM.PN ---
- General Info Date of Service: 10/03/21 Admission Dx/Problem (Free Text): Admission Diagnosis/Problem Admission Diagnosis/Problem Hypoxia Subjective Update: Patient seen at bedside, feels much better today, currently on 4 L of nasal cannula, Appetite is good is urinating well Functional Status: Reports: Tolerating Diet, Ambulating, Urinating - Review of Systems General: Denies: Fever, Weakness, Fatigue, Malaise Pulmonary: Reports: Shortness of Breath, Cough. Denies: Pleuritic Chest Pain, Sputum Gastrointestinal: Denies: Abdominal Pain, Constipation, Decreased Appetite Genitourinary: Denies: Dysuria, Frequency, Burning, Pain Musculoskeletal: Denies: Neck Pain, Shoulder Pain, Arm Pain Skin: Denies: Cyanosis, Jaundice, Mottled - Patient Data Vitals - Most Recent: Last Vital Signs Temp 36.2 C 10/03/21 08:00 Pulse 73 09/30/21 19:00 Resp 16 10/03/21 11:00 BP 139/88 10/03/21 10:00 Pulse Ox 91 L 10/03/21 11:00 Weight - Most Recent: 94.801 kg I&O - Last 24 Hours: Intake & Output 10/02/21 10/03/21 10/03/21 23:59 06:59 14:59 Intake Total Output Total Balance Lab Results Last 24 Hours: Laboratory Results - last 24 hr 10/02/21 10/03/21 10/03/21 Range/Units 18:15 06:25 06:25 WBC 11.84 H (4.0-11.0) K/uL RBC 5.12 (4.50-5.90) M/uL Hgb 15.9 (13.0-17.0) g/dL Hct 44.1 (38.0-50.0) % MCV 86.1 (80.0-98.0) fL MCH 31.1 (27.0-32.0) pg MCHC 36.1 (31.0-37.0) g/dL RDW Std Deviation 38.4 (28.0-62.0) fl RDW Coeff of Lala 12 (11.0-15.0) % Plt Count 347 (150-400) K/uL MPV 11.20 (7.40-12.00) fL Neut % (Auto) 69.1 (48.0-80.0) % Lymph % (Auto) 19.6 (16.0-40.0) % [place] % (Auto) 11.1 (0.0-15.0) % Eos % (Auto) 0.1 (0.0-7.0) % Baso % (Auto) 0.1 (0.0-1.5) % Neut # (Auto) 8.2 H (1.4-5.7) K/uL Lymph # (Auto) 2.3 (0.6-2.4) K/uL [place] # (Auto) 1.3 H (0.0-0.8) K/uL Eos # (Auto) 0.0 (0.0-0.7) K/uL Baso # (Auto) 0.0 (0.0-0.1) K/uL Nucleated RBC % 0.2 /100WBC Nucleated RBCs # 0 K/uL Sodium 135 L (136-148) mmol/L Potassium 3.9 (3.5-5.1) mmol/L Chloride 101 (98-107) mmol/L Carbon Dioxide 27.2 (21.0-32.0) mmol/L BUN 15 (7.0-18.0) mg/dL Creatinine 0.8 (0.8-1.3) mg/dL Est Cr Clr Drug Dosing 104.43 mL/min Estimated GFR (MDRD) > 60.0 ml/min Glucose 212 H (74-106) mg/dL POC Glucose 321 H (70-99) mg/dL Calcium 8.1 L (8.5-10.1) mg/dL Total Bilirubin 0.7 (0.2-1.0) mg/dL AST 41 H (15-37) IU/L ALT 80 H (14-63) IU/L Alkaline Phosphatase 74 (46-116) U/L Total Protein 6.8 (6.4-8.2) g/dL Albumin 2.3 L (3.4-5.0) g/dL Globulin 4.5 H (2.6-4.0) g/dL Albumin/Globulin Ratio 0.5 L (0.9-1.6) Med Orders - Current: Current Medications Acetaminophen (Acetaminophen 325 Mg Tab) 650 mg PO Q6H PRN PRN Reason: Pain/Fever Last Admin: 10/02/21 20:37 Dose: 650 mg Documented by: Albuterol/Ipratropium (Albuterol/Ipratropium 3.0-0.5 Mg/3 Ml Neb Soln) 3 ml NEB Q4HRRT PRN PRN Reason: Shortness Of Breath/wheezing Albuterol/Ipratropium (Albuterol/Ipratropium 4 Gm Inhalation [place]) 0 gm INH Q4H [facility] Last Admin: 10/03/21 09:51 Dose: 1 puff Documented by: Amlodipine Besylate (Amlodipine 5 Mg Tab) 10 mg PO DAILY [facility] Last Admin: 10/03/21 08:27 Dose: 10 mg Documented by: Baricitinib (Baricitinib 2 Mg Tab) 4 mg PO DAILY [facility] Last Admin: 10/03/21 08:27 Dose: 4 mg Documented by: Dexamethasone (Dexamethasone 4 Mg Tab) 6 mg PO DAILY [facility] Last Admin: 10/03/21 08:27 Dose: 6 mg Documented by: Dextrose/Water (50% Dextrose In Water 50 Ml Syringe) 50 ml IVPUSH ASDIRECTED PRN PRN Reason: Hypoglycemia Enoxaparin Sodium (Enoxaparin 40 Mg/0.4 Ml Syringe) 40 mg SUBCUT BID [facility] Last Admin: 10/03/21 08:27 Dose: 40 mg Documented by: Glucagon (Glucagon,Human Recombinant 1 Mg Vial) 1 mg IM ASDIRECTED PRN PRN Reason: Hypoglycemia Guaifenesin (Guaifenesin 100 Mg/5 Ml Soln 5 Ml Ud Cup) 200 mg PO Q6H PRN PRN Reason: Cough Last Admin: 10/02/21 20:37 Dose: 200 mg Documented by: Insulin Aspart (Insulin Aspart 100 Units/Ml 3 Ml Pen) 0 unit SUBCUT TIDAC [facility]; Protocol Last Admin: 10/03/21 09:15 Dose: 2 units Documented by: Lisinopril (Lisinopril 10 Mg Tab) 40 mg PO DAILY [facility] Last Admin: 10/03/21 08:28 Dose: 40 mg Documented by: Melatonin (Melatonin 3 Mg Tab) 6 mg PO BEDTIME PRN PRN Reason: Sleep Last Admin: 10/02/21 20:37 Dose: 6 mg Documented by: Ondansetron HCl (Ondansetron 4 Mg/2 Ml Sdv) 4 mg IVPUSH Q4H PRN PRN Reason: Nausea/Vomiting Pantoprazole Sodium (Pantoprazole 40 Mg Tab.Cr) 40 mg PO DAILY [facility] Last Admin: 10/03/21 08:27 Dose: 40 mg Documented by: Sodium Chloride (Sodium Chloride 0.9% 10 Ml Syringe) 10 ml FLUSH ASDIRECTED PRN PRN Reason: Keep Vein Open Last Admin: 09/27/21 16:36 Dose: 10 ml Documented by: Sodium Chloride (Sodium Chloride 0.9% 2.5 Ml Syringe) 2.5 ml FLUSH ASDIRECTED PRN PRN Reason: Keep Vein Open Last Admin: 09/27/21 16:37 Dose: 2.5 ml Documented by: Discontinued Medications Acetaminophen (Acetaminophen 500 Mg Tab) 1,000 mg PO ONETIME ONE Stop: 09/27/21 17:58 Last Admin: 09/27/21 18:13 Dose: 1,000 mg Documented by: Aspirin (Aspirin 81 Mg Tab.Chew) 324 mg PO ONETIME ONE Stop: 09/27/21 16:18 Last Admin: 09/27/21 16:37 Dose: 324 mg Documented by: Dexamethasone (Dexamethasone 10 Mg/Ml Sdv) 6 mg IVPUSH ONETIME ONE Stop: 09/27/21 16:30 Last Admin: 09/27/21 16:36 Dose: 6 mg Documented by: Sodium Chloride (Normal Saline) 1,000 mls @ 100 mls/hr IV STAT ONE Stop: 09/28/21 02:28 Last Admin: 09/27/21 16:36 Dose: 100 mls/hr Documented by: Sodium Chloride (Normal Saline) 1,000 mls @ 125 mls/hr IV STAT ONE Stop: 09/28/21 01:56 Last Admin: 09/27/21 18:13 Dose: 125 mls/hr Documented by: Remdesivir 200 mg/ Sodium (Chloride) 250 mls @ 250 mls/hr IV ONETIME ONE Stop: 09/27/21 17:59 Last Admin: 09/27/21 19:04 Dose: 250 mls/hr Documented by: Remdesivir 100 mg/ Sodium (Chloride) 100 mls @ 100 mls/hr IV Q24H [facility] Stop: 10/01/21 22:29 Last Admin: 10/01/21 21:48 Dose: 100 mls/hr Documented by: Iopamidol (Iopamidol 755 Mg/Ml 500 Ml Multipack Bottle) 100 ml IVPUSH ONETIME STA Stop: 09/27/21 18:54 Last Admin: 09/27/21 18:53 Dose: 100 ml Documented by: Ketorolac Tromethamine (Ketorolac 30 Mg/Ml Sdv) 30 mg IVPUSH ONETIME ONE Stop: 09/27/21 17:58 Last Admin: 09/27/21 18:14 Dose: 30 mg Documented by: Non-Formulary Medication (Lisinopril [Lisinopril]) 40 mg PO DAILY [facility] Last Admin: 09/28/21 00:35 Dose: Not Given Documented by: Pantoprazole Sodium (Pantoprazole 40 Mg Vial) 40 mg IV DAILY [facility] Last Admin: 09/28/21 08:53 Dose: 40 mg Documented by: Potassium Chloride (Potassium Chloride 20 Meq Tab.Er) 40 meq PO ONETIME ONE Stop: 09/27/21 17:59 Last Admin: 09/27/21 18:14 Dose: 40 meq Documented by: - Exam Quality Assessment: Supplemental Oxygen General: Alert, Oriented, Cooperative, No Acute Distress Lungs: Normal Respiratory Effort, Decreased Breath Sounds, Rales Cardiovascular: Regular Rate, Regular Rhythm GI/Abdominal Exam: Normal Bowel Sounds, Soft, Non-Tender - Patient Data Lab Results Last 24 hrs: Laboratory Results - last 24 hr 10/02/21 10/03/21 10/03/21 Range/Units 18:15 06:25 06:25 WBC 11.84 H (4.0-11.0) K/uL RBC 5.12 (4.50-5.90) M/uL Hgb 15.9 (13.0-17.0) g/dL Hct 44.1 (38.0-50.0) % MCV 86.1 (80.0-98.0) fL MCH 31.1 (27.0-32.0) pg MCHC 36.1 (31.0-37.0) g/dL RDW Std Deviation 38.4 (28.0-62.0) fl RDW Coeff of Lala 12 (11.0-15.0) % Plt Count 347 (150-400) K/uL MPV 11.20 (7.40-12.00) fL Neut % (Auto) 69.1 (48.0-80.0) % Lymph % (Auto) 19.6 (16.0-40.0) % [place] % (Auto) 11.1 (0.0-15.0) % Eos % (Auto) 0.1 (0.0-7.0) % Baso % (Auto) 0.1 (0.0-1.5) % Neut # (Auto) 8.2 H (1.4-5.7) K/uL Lymph # (Auto) 2.3 (0.6-2.4) K/uL [place] # (Auto) 1.3 H (0.0-0.8) K/uL Eos # (Auto) 0.0 (0.0-0.7) K/uL Baso # (Auto) 0.0 (0.0-0.1) K/uL Nucleated RBC % 0.2 /100WBC Nucleated RBCs # 0 K/uL Sodium 135 L (136-148) mmol/L Potassium 3.9 (3.5-5.1) mmol/L Chloride 101 (98-107) mmol/L Carbon Dioxide 27.2 (21.0-32.0) mmol/L BUN 15 (7.0-18.0) mg/dL Creatinine 0.8 (0.8-1.3) mg/dL Est Cr Clr Drug Dosing 104.43 mL/min Estimated GFR (MDRD) > 60.0 ml/min Glucose 212 H (74-106) mg/dL POC Glucose 321 H (70-99) mg/dL Calcium 8.1 L (8.5-10.1) mg/dL Total Bilirubin 0.7 (0.2-1.0) mg/dL AST 41 H (15-37) IU/L ALT 80 H (14-63) IU/L Alkaline Phosphatase 74 (46-116) U/L Total Protein 6.8 (6.4-8.2) g/dL Albumin 2.3 L (3.4-5.0) g/dL Globulin 4.5 H (2.6-4.0) g/dL Albumin/Globulin Ratio 0.5 L (0.9-1.6) Result Diagrams: 10/03/21 06:25 10/03/21 06:25 Sepsis Event Note - Evaluation Sepsis Screening Result: No Definite Risk - Focused Exam Vital Signs: Vital Signs Temp Resp BP BP Pulse Ox Pulse Ox 10/03/21 11:00 16 91 L 10/03/21 10:00 14 139/88 93 L 91 L 10/03/21 09:00 21 H 144/80 H 90 L 10/03/21 08:28 149/80 H 10/03/21 08:27 149/80 H 10/03/21 08:00 36.2 C 19 149/80 H 92 L 10/03/21 07:00 22 H 138/84 92 L 10/03/21 06:00 25 H 126/75 92 L 10/03/21 05:00 20 131/66 93 L 10/03/21 04:00 36.3 C 23 H 131/93 H 92 L 10/03/21 03:00 17 111/84 92 L 10/03/21 02:00 17 125/86 92 L 10/03/21 01:00 [employer]ITE [employer]PER[employer] 12 127/76 90 L - Problem List & Annotations (1) HTN (hypertension) SNOMED Code(s): 67708995 Code(s): I10 - ESSENTIAL (PRIMARY) HYPERTENSION Status: Acute Current Visit: Yes (2) Hypokalemia SNOMED Code(s): 58993779 Code(s): E87.6 - HYPOKALEMIA Status: Acute Current Visit: Yes (3) Pneumonia due to COVID-19 virus SNOMED Code(s): 196297991036283305 Code(s): U07.1 - COVID-19; J12.82 - PNEUMONIA DUE TO CORONAVIRUS DISEASE 2019 Status: Acute Current Visit: Yes (4) Diabetes mellitus SNOMED Code(s): 93006198 Code(s): E11.9 - TYPE 2 DIABETES MELLITUS WITHOUT COMPLICATIONS Status: Acute Current Visit: No Qualifiers: Diabetes mellitus type: type 2 Diabetes mellitus tie tamper insulin use: without fpc use Diabetes mellitus complication status: with hyperglycemia Qualified Code(s): E11.65 - Type 2 diabetes mellitus with hyperglycemia - Problem List Review Problem List Initiated/Reviewed/Updated: Yes - My Orders Last 24 Hours: My Active Orders 10/02/21 16:40 Transfer Patient (Change bed) [ADT] Routine - Plan Plan:: 51-year-old male admitted for acute hypoxic respiratory failure secondary to Covid pneumonia COVID pneumonia: cont dexamethason, barcitinib, finished remdesivir acute hypoxic respiratory failure: Has been weaned off the heated high flow currently on regular nasal cannula 4L Lovenox for DVT prophylaxis DM: ssi Patient has been downgraded to [facility] level of care Anticipate another 1 to 2 days before discharge
[2021-10-04] MEDS: Albuterol/Ipratropium 4 GM Inhalation Spray INH SCH ×3 (01:45→10:00)
[2021-10-04 07:34] LABS: BLOOD UREA NITROGEN,BUN 16 mg/dL (7.0-18.0); CARBON DIOXIDE,CO2 26.2 mmol/L (21.0-32.0); CHLORIDE,CL 101 mmol/L (98-107); GLUCOSE RANDOM 216 mg/dL (74-106); POTASSIUM,K 3.6 mmol/L (3.5-5.1); SODIUM,NA 135 mmol/L (136-148)
[2021-10-04] MEDS: Insulin Aspart 100 Units/ML 3 ML Pen SUBCUT SCH (08:05)
[2021-10-04] MEDS: Enoxaparin 40 MG/0.4 ML Syringe SUBCUT SCH (08:06)
[2021-10-04] MEDS: Dexamethasone 4 MG Tab PO SCH (08:07)
[2021-10-04] MEDS: amLODIPine 5 MG Tab PO SCH (08:07)
[2021-10-04] MEDS: Pantoprazole 40 MG Tab.CR PO SCH (08:07)
[2021-10-04] MEDS: Lisinopril 10 MG Tab PO SCH (08:07)
--- NOTE | 2021-10-04 09:57 | PCM.DCSUM1 ---
Discharge Summary - Hospital Course Free Text/Narrative:: Patient is a 51-year-old male with pmh of htn , DM who presents to the emergency room with complaints of shortness of breath. Patient states he has had the symptoms over the past 4 days, initially he thought he had COVID-19 but took a test on Monday which was negative. He states symptoms have progressively gotten worse. Upon arrival to the emergency room he is dyspneic with an oxygen saturation of 77% on room air. No previous history of any PE/DVT. does not take medication daily. Patient denies any chills, headache, change in vision, syncope or near syncope. Denies any back pain, abdominal pain, nausea, vomiting, diarrhea, constipation or dysuria. Has not noted any blood in urine or stool. Patient has been eating and drinking appropriately. No recent travel or sick contacts. In the ER patient was found to be Covid positive, CTA of the chest r uled out PE but did show extensive bilateral ground glass opacities throughout the both lungs suggestive of viral pneumonia likely Covid as well as hepatic steatosis. Patient needed to be put on 6 L of oxygen to maintain sats more than 90%. Patient received IV remdesivir and Decadron in the ER and was admitted to the hospital for further management. Patient's oxygen requirements gradually increase and had to be put on nonrebreather for a few hours, after that he was started on high flow requiring 10 L. Patient was started on IV remdesivir as well as dexamethasone. For DVT prophylaxis patient was started on subcu Lovenox. Patient was requiring high flow so was started on baricitinib as well. Patient continued to need increasing amount of oxygen so had to be put on heated high flow requiring as high as 85% FiO2. Patient was transferred to ICU for closer observation and higher level of care. Over the next few days patient's oxygen requirement gradually improved and we were able to wean him off the heated high flow to regular high flow and then eventually to regular nasal cannula. Total patient is requiring only 2 L on rest. Patient has completed his IV remdesivir course and still needs 3 more days of dexamethasone. Patient is keen to go home and was medically stable for discharge with home oxygen. Patient was also started on Metformin for his diabetes. Patient was recommended to follow-up with PCP upon discharge. Diagnosis: Stroke: No - Discharge Data Discharge Date: 10/04/21 Discharge Disposition: Home, Self-Care 01 Condition: Fair - Referral to Home Health Primary Care Physician: PCP None - Discharge Diagnosis/Problem(s) (1) HTN (hypertension) SNOMED Code(s): 40477357 ICD Code: I10 - ESSENTIAL (PRIMARY) HYPERTENSION Status: Acute Current Visit: Yes (2) Hypokalemia SNOMED Code(s): 47456614 ICD Code: E87.6 - HYPOKALEMIA Status: Acute Current Visit: Yes (3) Pneumonia due to COVID-19 virus SNOMED Code(s): 742570792326771908 ICD Code: U07.1 - COVID-19; J12.82 - PNEUMONIA DUE TO CORONAVIRUS DISEASE 2019 Status: Acute Current Visit: Yes (4) Diabetes mellitus SNOMED Code(s): 49699041 ICD Code: E11.9 - TYPE 2 DIABETES MELLITUS WITHOUT COMPLICATIONS Status: Acute Current Visit: No Qualifiers: Diabetes mellitus type: type 2 Diabetes mellitus predatory animal exterminator insulin use: without predatory animal exterminator use Diabetes mellitus complication status: with hyperglycemia Qualified Code(s): E11.65 - Type 2 diabetes mellitus with hyperglycemia (5) Acute respiratory failure with hypoxia SNOMED Code(s): 20772074, 971398420 ICD Code: J96.01 - ACUTE RESPIRATORY FAILURE WITH HYPOXIA Status: Acute Current Visit: Yes - Patient Instructions Diet: Diabetic Diet Activity: As Tolerated Showering/Bathing: May Shower Notify Provider of: Fever, Increased Pain, Swelling and Redness, Nausea and/or Vomiting - Discharge Plan *PRESCRIPTION DRUG MONITORING PROGRAM REVIEWED*: No *COPY OF PRESCRIPTION DRUG MONITORING REPORT IN PATIENT RICKY: No Prescriptions/Med Rec: dexAMETHasone [Dexamethasone] 6 mg PO DAILY #6 tablet metFORMIN [Glucophage XR] 500 mg PO BIDMEALS #60 tab.er guaiFENesin [Robitussin] 200 mg PO Q6H PRN #20 cup PRN Reason: Cough Home Medications: Home Meds Lisinopril 40 mg PO DAILY #30 tablet 09/05/19 [Rx] amLODIPine [Norvasc] 10 mg PO DAILY #30 tablet 09/05/19 [Rx] Albuterol/Ipratropium [Combivent Respimat] 1 puff INH Q4H inhaler 10/04/21 [Rx] dexAMETHasone [Dexamethasone] 6 mg PO DAILY #6 tablet 10/04/21 [Rx] guaiFENesin [Robitussin] 200 mg PO Q6H PRN #20 cup 10/04/21 [Rx] metFORMIN [Glucophage XR] 500 mg PO BIDMEALS #60 tab.er 10/04/21 [Rx] Patient Handouts: Hypoxia, COVID-19, How to Take Your Blood Pressure, Wmyl-in-Dlhm, Hypokalemia, 10 Things You Can Do to Manage Your COVID-19 Symptoms at Home - [facility] (06/11/2021), COVID-19: How to Protect Yourself and Others - CDC, Hypertension, Adult, [id number], Preventing Hypertension, Frequently Asked Questions About COVID-19 Vaccination - [facility] (07/30/2021), Infection Prevention in the Home, Managing Your Hypertension Referrals: Harshal Albarran MD [Physician] - 10/11/21 10:00 am - Discharge Summary/Plan Comment DC Time >30 min.: Yes Total # of Minutes for Discharge Time: 40 - Patient Data Vitals - Most Recent: Last Vital Signs Temp 36.4 C 10/04/21 08:13 Pulse 61 10/04/21 08:13 Resp 16 10/04/21 08:13 BP 147/89 H 10/04/21 08:13 Pulse Ox 95 10/04/21 08:13 Weight - Most Recent: 94.801 kg I&O - Last 24 hours: Intake & Output 10/03/21 10/04/21 10/04/21 22:59 06:59 14:59 Intake Total 1840 1350 Output Total 1825 1200 Balance 15 150 Lab Results - Last 24 hrs: Laboratory Results - last 24 hr 10/03/21 10/03/21 10/04/21 Range/Units 09:43 18:15 06:18 WBC (4.0-11.0) K/uL RBC (4.50-5.90) M/uL Hgb (13.0-17.0) g/dL Hct (38.0-50.0) % MCV (80.0-98.0) fL MCH (27.0-32.0) pg MCHC (31.0-37.0) g/dL RDW Std Deviation (28.0-62.0) fl RDW Coeff of Lala (11.0-15.0) % Plt Count (150-400) K/uL MPV (7.40-12.00) fL Neut % (Auto) (48.0-80.0) % Lymph % (Auto) (16.0-40.0) % [place] % (Auto) (0.0-15.0) % Eos % (Auto) (0.0-7.0) % Baso % (Auto) (0.0-1.5) % Neut # (Auto) (1.4-5.7) K/uL Lymph # (Auto) (0.6-2.4) K/uL [place] # (Auto) (0.0-0.8) K/uL Eos # (Auto) (0.0-0.7) K/uL Baso # (Auto) (0.0-0.1) K/uL Nucleated RBC % /100WBC Nucleated RBCs # K/uL Sodium (136-148) mmol/L Potassium (3.5-5.1) mmol/L Chloride (98-107) mmol/L Carbon Dioxide (21.0-32.0) mmol/L BUN (7.0-18.0) mg/dL Creatinine (0.8-1.3) mg/dL Est Cr Clr Drug Dosing mL/min Estimated GFR (MDRD) ml/min Glucose (74-106) mg/dL POC Glucose 169 H 367 H 202 H (70-99) mg/dL Calcium (8.5-10.1) mg/dL Total Bilirubin (0.2-1.0) mg/dL AST (15-37) IU/L ALT (14-63) IU/L Alkaline Phosphatase (46-116) U/L Total Protein (6.4-8.2) g/dL Albumin (3.4-5.0) g/dL Globulin (2.6-4.0) g/dL Albumin/Globulin Ratio (0.9-1.6) 10/04/21 10/04/21 Range/Units 06:40 06:40 WBC 11.28 H (4.0-11.0) K/uL RBC 4.99 (4.50-5.90) M/uL Hgb 15.3 (13.0-17.0) g/dL Hct 42.7 (38.0-50.0) % MCV 85.6 (80.0-98.0) fL MCH 30.7 (27.0-32.0) pg MCHC 35.8 (31.0-37.0) g/dL RDW Std Deviation 37.3 (28.0-62.0) fl RDW Coeff of Lala 12 (11.0-15.0) % Plt Count 353 (150-400) K/uL MPV 11.00 (7.40-12.00) fL Neut % (Auto) 67.9 (48.0-80.0) % Lymph % (Auto) 21.5 (16.0-40.0) % [place] % (Auto) 10.3 (0.0-15.0) % Eos % (Auto) 0.2 (0.0-7.0) % Baso % (Auto) 0.1 (0.0-1.5) % Neut # (Auto) 7.7 H (1.4-5.7) K/uL Lymph # (Auto) 2.4 (0.6-2.4) K/uL [place] # (Auto) 1.2 H (0.0-0.8) K/uL Eos # (Auto) 0.0 (0.0-0.7) K/uL Baso # (Auto) 0.0 (0.0-0.1) K/uL Nucleated RBC % 0.0 /100WBC Nucleated RBCs # 0 K/uL Sodium 135 L (136-148) mmol/L Potassium 3.6 (3.5-5.1) mmol/L Chloride 101 (98-107) mmol/L Carbon Dioxide 26.2 (21.0-32.0) mmol/L BUN 16 (7.0-18.0) mg/dL Creatinine 0.8 (0.8-1.3) mg/dL Est Cr Clr Drug Dosing 104.43 mL/min Estimated GFR (MDRD) > 60.0 ml/min Glucose 216 H (74-106) mg/dL POC Glucose (70-99) mg/dL Calcium 8.1 L (8.5-10.1) mg/dL Total Bilirubin 0.6 (0.2-1.0) mg/dL AST 35 (15-37) IU/L ALT 94 H (14-63) IU/L Alkaline Phosphatase 73 (46-116) U/L Total Protein 6.7 (6.4-8.2) g/dL Albumin 2.3 L (3.4-5.0) g/dL Globulin 4.4 H (2.6-4.0) g/dL Albumin/Globulin Ratio 0.5 L (0.9-1.6) Med Orders - Current: Current Medications Acetaminophen (Acetaminophen 325 Mg Tab) 650 mg PO Q6H PRN PRN Reason: Pain/Fever Last Admin: 10/02/21 20:37 Dose: 650 mg Documented by: Albuterol/Ipratropium (Albuterol/Ipratropium 3.0-0.5 Mg/3 Ml Neb Soln) 3 ml NEB Q4HRRT PRN PRN Reason: Shortness Of Breath/wheezing Albuterol/Ipratropium (Albuterol/Ipratropium 4 Gm Inhalation [place]) 0 gm INH Q4H [facility] Last Admin: 10/04/21 05:35 Dose: 1 puff Documented by: Amlodipine Besylate (Amlodipine 5 Mg Tab) 10 mg PO DAILY [facility] Last Admin: 10/04/21 08:07 Dose: 10 mg Documented by: Baricitinib (Baricitinib 2 Mg Tab) 4 mg PO DAILY [facility] Last Admin: 10/04/21 08:06 Dose: 4 mg Documented by: Dexamethasone (Dexamethasone 4 Mg Tab) 6 mg PO DAILY [facility] Last Admin: 10/04/21 08:07 Dose: 6 mg Documented by: Dextrose/Water (50% Dextrose In Water 50 Ml Syringe) 50 ml IVPUSH ASDIRECTED PRN PRN Reason: Hypoglycemia Enoxaparin Sodium (Enoxaparin 40 Mg/0.4 Ml Syringe) 40 mg SUBCUT BID [facility] Last Admin: 10/04/21 08:06 Dose: 40 mg Documented by: Glucagon (Glucagon,Human Recombinant 1 Mg Vial) 1 mg IM ASDIRECTED PRN PRN Reason: Hypoglycemia Guaifenesin (Guaifenesin 100 Mg/5 Ml Soln 5 Ml Ud Cup) 200 mg PO Q6H PRN PRN Reason: Cough Last Admin: 10/02/21 20:37 Dose: 200 mg Documented by: Insulin Aspart (Insulin Aspart 100 Units/Ml 3 Ml Pen) 0 unit SUBCUT TIDAC [facility]; Protocol Last Admin: 10/04/21 08:05 Dose: 4 units Documented by: Lisinopril (Lisinopril 10 Mg Tab) 40 mg PO DAILY [facility] Last Admin: 10/04/21 08:07 Dose: 40 mg Documented by: Melatonin (Melatonin 3 Mg Tab) 6 mg PO BEDTIME PRN PRN Reason: Sleep Last Admin: 10/02/21 20:37 Dose: 6 mg Documented by: Ondansetron HCl (Ondansetron 4 Mg/2 Ml Sdv) 4 mg IVPUSH Q4H PRN PRN Reason: Nausea/Vomiting Pantoprazole Sodium (Pantoprazole 40 Mg Tab.Cr) 40 mg PO DAILY [facility] Last Admin: 10/04/21 08:07 Dose: 40 mg Documented by: Sodium Chloride (Sodium Chloride 0.9% 10 Ml Syringe) 10 ml FLUSH ASDIRECTED PRN PRN Reason: Keep Vein Open Last Admin: 09/27/21 16:36 Dose: 10 ml Documented by: Sodium Chloride (Sodium Chloride 0.9% 2.5 Ml Syringe) 2.5 ml FLUSH ASDIRECTED PRN PRN Reason: Keep Vein Open Last Admin: 09/27/21 16:37 Dose: 2.5 ml Documented by: Discontinued Medications Acetaminophen (Acetaminophen 500 Mg Tab) 1,000 mg PO ONETIME ONE Stop: 09/27/21 17:58 Last Admin: 09/27/21 18:13 Dose: 1,000 mg Documented by: Aspirin (Aspirin 81 Mg Tab.Chew) 324 mg PO ONETIME ONE Stop: 09/27/21 16:18 Last Admin: 09/27/21 16:37 Dose: 324 mg Documented by: Dexamethasone (Dexamethasone 10 Mg/Ml Sdv) 6 mg IVPUSH ONETIME ONE Stop: 09/27/21 16:30 Last Admin: 09/27/21 16:36 Dose: 6 mg Documented by: Sodium Chloride (Normal Saline) 1,000 mls @ 100 mls/hr IV STAT ONE Stop: 09/28/21 02:28 Last Admin: 09/27/21 16:36 Dose: 100 mls/hr Documented by: Sodium Chloride (Normal Saline) 1,000 mls @ 125 mls/hr IV STAT ONE Stop: 09/28/21 01:56 Last Admin: 09/27/21 18:13 Dose: 125 mls/hr Documented by: Remdesivir 200 mg/ Sodium (Chloride) 250 mls @ 250 mls/hr IV ONETIME ONE Stop: 09/27/21 17:59 Last Admin: 09/27/21 19:04 Dose: 250 mls/hr Documented by: Remdesivir 100 mg/ Sodium (Chloride) 100 mls @ 100 mls/hr IV Q24H [facility] Stop: 10/01/21 22:29 Last Admin: 10/01/21 21:48 Dose: 100 mls/hr Documented by: Iopamidol (Iopamidol 755 Mg/Ml 500 Ml Multipack Bottle) 100 ml IVPUSH ONETIME STA Stop: 09/27/21 18:54 Last Admin: 09/27/21 18:53 Dose: 100 ml Documented by: Ketorolac Tromethamine (Ketorolac 30 Mg/Ml Sdv) 30 mg IVPUSH ONETIME ONE Stop: 09/27/21 17:58 Last Admin: 09/27/21 18:14 Dose: 30 mg Documented by: Non-Formulary Medication (Lisinopril [Lisinopril]) 40 mg PO DAILY [facility] Last Admin: 09/28/21 00:35 Dose: Not Given Documented by: Pantoprazole Sodium (Pantoprazole 40 Mg Vial) 40 mg IV DAILY [facility] Last Admin: 09/28/21 08:53 Dose: 40 mg Documented by: Potassium Chloride (Potassium Chloride 20 Meq Tab.Er) 40 meq PO ONETIME ONE Stop: 09/27/21 17:59 Last Admin: 09/27/21 18:14 Dose: 40 meq Documented by:
== END 2021-10-04 13:00 | disposition home or self-care (01) | DRG 137 ==
LOC: MW.ED 16:15 → MW.MS 19:59 → MW.ICU 09-28 18:30 → MW.MS 10-03 14:30
PROVIDERS: ADMIT Student in an Organized Health Care Education/Training Program; ATTEND Student in an Organized Health Care Education/Training Program
PROC: XW033E5 Introduction of Remdesivir Anti-infective into Peripheral Vein, Percutaneous Approach, New Technology Group 5 (ICD-10-PCS; principal; 2021-09-27)
PROC: 3E0333Z Introduction of Anti-inflammatory into Peripheral Vein, Percutaneous Approach (ICD-10-PCS; 2021-09-27)
PROC: 3E0DX3Z Introduction of Anti-inflammatory into Mouth and Pharynx, External Approach (ICD-10-PCS; 2021-09-27)
PROC: XW0DXM6 Introduction of Baricitinib into Mouth and Pharynx, External Approach, New Technology Group 6 (ICD-10-PCS; 2021-09-27)
DX: U07.1 COVID-19 (principal); J12.82 Pneumonia due to coronavirus disease 2019; J96.01 Acute respiratory failure with hypoxia; E78.00 Pure hypercholesterolemia, unspecified; I10 Essential (primary) hypertension; E11.9 Type 2 diabetes mellitus without complications; E66.9 Obesity, unspecified; K76.0 Fatty (change of) liver, not elsewhere classified; E87.6 Hypokalemia; Z68.32 Body mass index [BMI] 32.0-32.9, adult
CPT/HCPCS: 36415; 71275; 71275-26; 80053; 81001; 82947; 83036; 83735; 84100; 84484; 85025; 86140; 87086; 93005; 94640; 96374; 96375; 99285-25; A9270-GY; C9113; J1100; J1650; J1815-GY; J1885; J7030; J7050; J8540; Q9967; U0002